=== PATIENT | female | born 1985 | race African-American/Black ===

== ENCOUNTER → 2018-01-29 | Outpatient (CLI) | payer MEDICAID ==
--- NOTE | 2018-01-29 13:40 | Diagnostic Imaging Report ---
INDICATION: care, second trimester ultrasound, anatomic survey. Clinical dates of 17 weeks and 3 days. TECHNIQUE: Multiple real-time grayscale images were obtained over the gravid uterus. COMPARISON: None. FINDINGS: There is a single live intrauterine gestation in variable presentation. Amniotic fluid appears normal, with the largest vertical pocket on these images measuring 5.4 cm. The cervical length is normal, measuring 4.5 cm. There is no funneling or endocervical fluid. The placenta is anterior. The heart rate is regular and measures 143 BPM. The upper and lower spine, intracranial ventricles, cerebellum, cisterna magna, cord insertion, kidneys, four-chamber heart, stomach are seen. The urinary bladder and three-vessel cord are not seen due to the lie. Biometrical measurements are as follows: Biparietal 3.89 cm, age 17 weeks 6 days. Head circumference 14.49 cm, age 17 weeks 5 days. Abdominal circumference 12.33 cm, age 18 weeks 0 days. Femur length 2.41 cm, age 17 weeks 2 days. Sonographic estimate age: 17 weeks 5 days. Sonographic estimated date of delivery: 07/04/2018. Estimated Weight: 204 gm (+/- 30 gm). LMP percentile: 59%. heart rate: 143 beats per minute. number: 1 of 1. IMPRESSION: 1. Single live intrauterine gestation measuring at 17 weeks 5 days, which is within range of the clinical dates. 2. Anatomic survey, as described above. The urinary bladder and three-vessel cord are not seen. Dictated by: Dictated on workstation # [id number]
== END ==
LOC: RAD 10:09
PROVIDERS: ATTEND Family Medicine
DX: Z34.82 Encounter for supervision of other normal pregnancy, second trimester (principal); Z3A.17 17 weeks gestation of pregnancy
CPT/HCPCS: 76805

== ENCOUNTER → 2018-04-09 | Outpatient (CLI) | payer MEDICAID ==
--- NOTE | 2018-04-09 13:41 | Diagnostic Imaging Report ---
INDICATION: survey. TECHNIQUE: Multiple real-time grayscale images were obtained over the gravid uterus. COMPARISON: 01/29/2018. FINDINGS: The previous exam of 01/29/2018 noted a single live intrauterine of approximately 17 weeks 5 days gestation +/-1 week. There were no abnormalities identified but the bladder and three-vessel cord were not well visualized. On this study, the fetus is cephalic in presentation. heart motion was noted and a rate of 167 BPM was recorded. There were no abnormalities identified. The bladder and three-vessel cord were visualized and were unremarkable. No other abnormalities noted. The growth parameters were not obtained for this exam. On the prior exam, the amniotic fluid index was within normal limits. However on this exam, the amniotic fluid index is now estimated to be 23.1 cm (normal 8 to 22 cm). The reason for the mild polyhydramnios is not certain. The placenta is anterior and there is no previa. The cervix was visualized and measures 3.6 cm in length (normal 3 cm or greater). IMPRESSION: 1. There is single live fetus of approximately 27 weeks 3 days gestation +/-1 week. The EDC remains July 06, 2018. 2. There were no abnormalities identified. In particular, the bladder and three-vessel cord appear to be within normal limits. 3. In the interval since the prior exam, mild polyhydramnios has developed. The reason for this is not certain. A short-term (2-4 week) followup exam would be recommended for further evaluation of the amniotic fluid volume. Biometrical measurements are as follows: Biparietal 6.88 cm, age 27 weeks 5 days. Head circumference 25.77 cm, age 28 weeks 1 days. Abdominal circumference 23.89 cm, age 28 weeks 2 days. Femur length 5.28 cm, age 28 weeks 1 days. Sonographic estimate age: 28 weeks 1 days. Sonographic estimated date of delivery: 07/01/2018. Estimated Weight: 1174 gm (+/- 171 gm). LMP percentile: 65%. heart rate: 167 beats per minute. number: 1 of 1. Dictated by: Dictated on workstation # [id number]
== END ==
LOC: RAD 11:52
PROVIDERS: ATTEND Family Medicine
DX: O40.2XX0 Polyhydramnios, second trimester, not applicable or unspecified (principal); Z3A.27 27 weeks gestation of pregnancy
CPT/HCPCS: 76816

== ENCOUNTER → 2018-05-21 | Outpatient (CLI) | payer MEDICAID ==
--- NOTE | 2018-05-21 14:23 | Diagnostic Imaging Report ---
INDICATION: Evaluate growth and fluid. TECHNIQUE: Multiple real-time grayscale images were obtained over the gravid uterus. COMPARISON: 04/09/2018. FINDINGS: There is a single live fetus in a cephalic presentation. heart rate was recorded at 144 beats per minute. Placenta is anterior. Amniotic fluid volume is normal with ANNA of 14 cm. Biometrical measurements are as follows: Biparietal 8.19 cm, age 33 weeks 0 days. Head circumference 30.68 cm, age 34 weeks 2 days. Abdominal circumference 29.92 cm, age 34 weeks 0 days. Femur length 6065 cm, age 34 weeks 2 days. Sonographic estimate age: 34 weeks 0 days. Sonographic estimated date of delivery: 07/02/2018. Estimated Weight: 2307 gm (+/- 337 gm). LMP percentile: 58%. heart rate: 144 beats per minute. number: 1 of 1. IMPRESSION: Single live IUP at approximately 34 weeks gestational age demonstrates normal interval growth when compared with prior exams. No complicating features are seen. Dictated by: Dictated on workstation # [id number]
== END ==
LOC: RAD 11:57
PROVIDERS: ATTEND Family Medicine
DX: Z34.93 Encounter for supervision of normal pregnancy, unspecified, third trimester (principal); Z3A.34 34 weeks gestation of pregnancy
CPT/HCPCS: 76816

== ENCOUNTER 2018-06-29 07:07 | Inpatient (IN) | payer MEDICAID ==
[2018-06-29] VITALS (49 sets, daily range): BP systolic 100–149; BP diastolic 60–90
[~2018-06-29] VITALS: Ht 154.9 cm; Wt 66.2 kg
[2018-06-29] MEDS ORDERED: OXYTOCIN/NORMAL SALINE 500 ML IV SCH ×2 (07:32→15:00)
[2018-06-29] MEDS ORDERED: OXYTOCIN/NORMAL SALINE 500 ML IV ONE (07:34)
[2018-06-29] MEDS ORDERED: MINERAL OIL CONCENTRATE 99.9% 15 ML UDC ONE (07:34)
[2018-06-29] MEDS ORDERED: D5 LR IV SOLUTION 1,000 ML IV ONE (07:34)
--- OUTSIDE RECORDS SUMMARY | 2018-06-29 07:37 | XMS REPORT | CCD ---
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 Allergies Allergy Code Allergy Type Reaction Status VANTIN 137185 Drug allergy Active Procedures Unknown or Not Available. 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 Active Medications Medication Code Dose Units Frequency Route Modification Start Date/Time Acetaminophen/Codeine 300MG-30MG Oral Tablet 505455 1 TABLET NEEDED EVERY 8 HR BY MOUTH FOR PAIN 2013 08:09 Docusate Sodium 100MG Oral Capsule 9315219 100 MILLIGRAMS NEEDED EVERY 12 H BY MOUTH for constipation 08:09 Ibuprofen 800MG Oral Tablet 392322 800 MILLIGRAMS NEEDED EVERY 8 HR BY MOUTH FOR PAIN 09/25/2013 08:08 PreQue 10 [id number]-[id number]-63-1MG-1M Oral Tablet 281577 0.5 EACH DAILY ORAL 09/25/2013 08:08 Medications Administered During Visit Unknown or Not Available. Encounters Encounter Diagnosis Diagnosis Code Start Date PERIAPICAL ABSCESS 5225 02/28/2015 Social History Smoking Status Code Start Date End Date Former smoker [id number] Patient Decision Aids Unknown or Not Available. Discharge Instructions You were admitted to [facility] on 02/28/2015 with a principal diagnosis of PERIAPICAL ABSCESS. You were discharged from [facility] on 02/28/2015. Should you have any questions prior to discharge, please contact a member of your healthcare team. If you have left the hospital and have any questions, please contact your primary care physician. Chief Complaint and Reason For Visit Chief Complaint Date of Onset TOOTHACHE Function Status Unknown or Not Available. Referral/Transition of Care Unknown or Not Available.
--- OUTSIDE RECORDS SUMMARY | 2018-06-29 07:37 | XMS REPORT | CCD ---
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 Name Role Phone RADHA PHYS, BEATRIZ ER Attphys RADHA PHYS, BEATRIZ ER Prisurg Allergies Allergy Code Allergy Type Reaction Status VANTIN {Deactivated Allergy} 007625 Drug allergy Active Active Medications Medication Code Dose Units Frequency Route Modification Start Date/Time Acetaminophen/Codeine 300MG-30MG Oral Tablet 670811 1 TABLET NEEDED EVERY 8 HR BY MOUTH FOR PAIN 2013 08:09 Prescription Detail 1 TABLET BY MOUTH NEEDED EVERY 8 HR FOR PAIN Docusate Sodium 100MG Oral Capsule 1478594 100 MILLIGRAMS NEEDED EVERY 12 H BY MOUTH for constipation 08:09 Prescription Detail 100 MILLIGRAMS BY MOUTH NEEDED EVERY 12 H for constipation Ibuprofen 800MG Oral Tablet 213086 800 MILLIGRAMS NEEDED EVERY 8 HR BY MOUTH FOR PAIN 09/25/2013 08:08 Prescription Detail 800 MILLIGRAMS BY MOUTH NEEDED EVERY 8 HR FOR PAIN PreQue 10 [id number]-00-1MG-1M Oral Tablet 667959 0.5 EACH DAILY ORAL 09/25/2013 08:08 Prescription Detail 0.5 EACH ORAL DAILY Problems Problem Code Start Date Resolved Date Status GRAVES DISEASE 634050508 Active Procedures Procedure Code Procedure Type Date CT HEAD W/O CONTRAST 102148652 SNOMED CT 10/16/[address] 10/16/2016 Results TEST - Collect Date/Time: 10/16/2016 14:57 Test Name Code Test Result Test Units Test Ref Range TEST 8-8 NEGATIVE N/A Function Status Unknown or Not Available. History of Immunizations Immunization Code Date Td (adult), adsorbed 09 05/20/2003 Td (adult), adsorbed 09 06/18/2005 Tdap 115 09/24/2013 Influenza, seasonal, injectable 141 09/24/2013 Plan of Treatment Unknown or Not Available. Social History Smoking Status Code Start Date End Date Former smoker [id number] Vital Signs Unknown or Not Available. Function Status Unknown or Not Available. Goals Unknown or Not Available. ASSESSMENTS Unknown or Not Available. Health Concerns Section Unknown or Not Available.
--- OUTSIDE RECORDS SUMMARY | 2018-06-29 07:37 | XMS REPORT | CCD ---
Author Author LUISANA MCKEON Organization Unknown Address [address] [place] [id number] Care Team Providers Care Second Baker Name Role Phone ALAN PARRA, MARZENA [place] Attphynoman MARZENA PHILLIPS MD Vital Signs Unknown or Not Available. Allergies Allergy Code Allergy Type Reaction Status [id number] Drug allergy Active Procedures Unknown or Not Available. History of Immunizations Immunization Code Date Tdap 115 09/24/2013 Influenza, seasonal, injectable 141 09/24/2013 Problems Problem Code Start Date Resolved Date Status GRAVES DISEASE 303045519 Active Results Unknown or Not Available. Medications Medication Code Dose Units Frequency Route Modification Start Date/Time Stop Date/Time PreQue 10 [id number]-25-1MG-1M Oral Tablet 375804 0.5 EACH DAILY ORAL 09/25/2013 08:08 Ibuprofen 800MG Oral Tablet 399871 800 MILLIGRAMS NEEDED EVERY 8 HR BY MOUTH FOR PAIN 09/25/2013 08:08 Docusate Sodium 100MG Oral Capsule 8886999 100 MILLIGRAMS NEEDED EVERY 12 H BY MOUTH for constipation 08:09 Acetaminophen/Codeine 300MG-30MG Oral Tablet 958272 1 TABLET NEEDED EVERY 8 HR BY MOUTH FOR PAIN 2013 08:09 Medications Administered Unknown or Not Available. Encounters Encounter Diagnosis Diagnosis Code Start Date PERIAPICAL ABSCESS 5225 05/22/2014 Social History Smoking Status Code Start Date End Date Former smoker 8418555 Patient Decision Aids Unknown or Not Available. Discharge Instructions You were admitted to [facility] on 05/22/2014 with a principal diagnosis of PERIAPICAL ABSCESS. You were discharged from [facility] on 05/22/2014. Should you have any questions prior to discharge, please contact a member of your healthcare team. If you have left the hospital and have any questions, please contact your primary care physician. Chief Complaint and Reason For Visit Chief Complaint Date of Onset TOOTH PAIN HEADACHE Function Status Unknown or Not Available. Referral/Transition of Care Unknown or Not Available.
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
--- OUTSIDE RECORDS SUMMARY | 2018-06-29 07:39 | XMS REPORT ---
Author Author Kyung Abreu Organization [facility] Address [address] [place], [place] [address] Care Team Providers Care Electric Spot Welder Name Role Phone Kyung Abreu PCP Unavailable Allergies and Adverse Reactions Name Reaction Notes Vantin Plan of Treatment Planned Activity Comments Planned Date Planned Time Plan/Goal ELECTROCARDIOGRAM COMPLETE 12/16/2012 12:00 AM URINALYSIS AUTO W/SCOPE 11/07/2014 12:00 AM ASSAY OF PHENYTOIN TOTAL 01/04/2015 12:00 AM EEG AWAKE AND DROWSY 02/24/2015 12:00 AM COMPREHEN METABOLIC PANEL 02/24/2015 12:00 AM ASSAY THYROID STIM HORMONE 02/24/2015 12:00 AM ASSAY OF TOTAL THYROXINE 02/24/2015 12:00 AM COMPLETE CBC W/AUTO DIFF WBC 02/24/2015 12:00 AM ASSAY OF PHENYTOIN TOTAL 02/24/2015 12:00 AM ASSAY OF PHENYTOIN FREE 02/24/2015 12:00 AM Medications Active Name Start Date Estimated Completion Date SIG Comments Sprintec (28) 0.25-35 mg-mcg oral tablet 10/04/2014 09/05/2015 take 1 tablet by oral route once daily for 28 days Dilantin Extended 100 mg oral capsule 02/24/2015 05/25/2015 take 1 capsule ( 100 mg) by oral route 3 times per day for 30 days methimazole 5 mg oral tablet 02/24/2015 05/25/2015 take 1 tablet (5 mg) by oral route every 8 hours for 30 days tramadol 50 mg oral tablet 04/03/2015 take 1 tablet (50 mg) by oral route every 6 hours as needed amoxicillin 500 mg oral tablet 04/03/2015 04/10/2015 take 1 tablet by oral route 2 times a day for 7 days Name Start Date Expiration Date SIG Comments ferrous sulfate 325 mg (65 mg iron) oral tablet 07/20/2009 12/17/2009 take 1 tablet by oral route 2 times a day for 30 days iron to be taken with Vit C. No milk products one hour before or after Vitamin C 500 mg oral tablet 07/20/2009 12/17/2009 take 1 tablet by oral route 2 times a day for 30 days To be taken with iron Vitamin C 500 mg oral tablet 07/20/2009 12/17/2009 take 1 tablet by oral route 2 times a day for 30 days To be taken with iron Keflex Oral take 1 TID Flexeril 10 mg oral tablet 10/04/2010 11/03/2010 take 1 tablet (10 mg) by oral route 3 times per day for 30 days TriAdvance 90-1-50 mg oral tablet 04/11/2011 04/05/2012 take 1 tablet by oral route once daily for 30 days metronidazole 500 mg oral tablet 09/12/2011 09/19/2011 take 1 tablet (500 mg) by oral route every 12 hours for 7 days promethazine 25 mg oral tablet 09/18/2011 12/17/2011 take 1/2 to 1 tablet by oral route q 6 hrs prn Nausea meloxicam 15 mg oral tablet 12/16/2012 take 1 tablet (15 mg) by oral route once daily clindamycin HCl 150 mg oral capsule 09/27/2013 10/07/2013 take 2 capsules ( 300 mg) by oral route 2 times per day for 10 days Paxil 20 mg oral tablet 02/01/2014 take 1 tablet (20 mg) by oral route once daily buspirone 10 mg oral tablet 05/11/2014 06/10/2014 take 1 tablet (10 mg) by oral route 2 times per day for 30 days Keflex 500 mg oral capsule 06/14/2014 06/21/2014 take 1 capsule (500 mg) by oral route every 12 hours for 7 days lorazepam 0.5 mg oral tablet 02/24/2015 03/26/2015 take 1 tablet (0.5 mg) by oral route 2 times per day PRN severe anxiety mirtazapine 7.5 mg oral tablet 02/24/2015 03/26/2015 take 2 tablets (15 mg) by oral route once daily at bedtime for 30 days oxycodone-acetaminophen 5-325 mg oral tablet 03/03/2015 03/06/2015 take 1 tablet by oral route every 6 hours as needed for 3 days Discontinued Name Start Date Discontinued Date SIG Comments medroxyprogesterone 150 mg/mL intramuscular syringe 11/10/2009 10/04/2010 inject 1 milliliter (150 mg) by intramuscular route every 3 months for 90 days Inderal LA Oral 09/23/2013 take 1 QID not needed in methimazole 5 mg oral tablet 05/29/2011 take 1 tablet (5 mg) by oral route once daily will need if Thyroid studies indicate Brooks MCMANUS 27-400-1.13-250 md-sga-ep-mg oral capsule 03/20/2011 04/11/2011 take 1 capsule by oral route once daily for 30 days ferrous sulfate 325 mg (65 mg iron) oral tablet 08/01/2011 12/16/2012 take 1 tablet by oral route daily methimazole 10 mg oral tablet 03/14/2013 take 1/2 tablet 3 times a day not needed in PreQue 10 15 mg iron -0.5 mg-25 mg oral tablet 03/04/2013 05/19/2013 take 1 tablet by oral route daily Zofran ODT 4 mg oral tablet,disintegrating 03/04/2013 09/27/2013 dissolve 1 tablet by oral route every 6 hours as needed Plus 29 mg iron- 1 mg oral tablet 05/19/2013 02/24/2015 take 1 tablet by oral route once daily with a meal cyclobenzaprine 10 mg oral tablet 09/27/2013 10/28/2013 take 1 tablet by mouth at HS Zoloft 50 mg oral tablet 10/28/2013 02/01/2014 take 1 tablet (50 mg) by oral route once daily meloxicam 7.5 mg oral tablet 02/01/2014 02/24/2015 take 1 tablet (7.5 mg) by oral route once daily cyclobenzaprine 10 mg oral tablet 05/11/2014 02/24/2015 take 1 tablet by oral route 2 times a day as needed Problem List Description Status Onset Thyroid disorder Active 2009 Hyperthyroidism in Active 05/19/2013 Depression and anxiety Active 05/15/2014 Vital Signs Date Time BP-Sys(mm[Hg] BP-Katie(mm[Hg]) HR(bpm) RR(rpm) Temp WT HT HC BMI BSA BMI Percentile O2 Sat(%) 04/03/2015 2:55:00 PM 124 mmHg 66 mmHg 71 bpm 18 rpm 97.4 F 99.125 lbs 60 in 19.36 kg/m2 1.38 m2 98 % 02/24/2015 3:26:00 PM 110 mmHg 72 mmHg 94 bpm 20 rpm 97.9 F 95.75 lbs 60 in 18.6997 kg/m 1.356 m 100 % 11/15/2014 1:58:00 PM 130 mmHg 70 mmHg 78 bpm 19 rpm 97.2 F 100.125 lbs 98 % 10/03/2014 2:04:00 PM 100 mmHg 70 mmHg 87 bpm 18 rpm 96.8 F 100 lbs 60 in 19.5297 kg/m 1.3857 m 96 % 05/11/2014 2:47:00 PM 112 mmHg 80 mmHg 102 bpm 18 rpm 97.1 F 108 lbs 60 in 21.09 kg/m2 1.44 m2 98 % 02/01/2014 1:47:00 PM 122 mmHg 62 mmHg 102 bpm 18 rpm 98.4 F 114.125 lbs 60 in 22.2883 kg/m 1.4804 m 99 % 10/28/2013 1:14:00 PM 140 mmHg 96 mmHg 73 bpm 97.4 F 112 lbs 60 in 21.87 kg/m2 1.47 m2 09/27/2013 2:16:00 PM 126 mmHg 64 mmHg 89 bpm 18 rpm 98.1 F 117.375 lbs 60 in 22.923 kg/m 1.5013 m 99 % 03/11/2013 2:26:00 PM 115 mmHg 75 mmHg 93 bpm 97.8 F 99 lbs 60 in 19.33 kg/m2 1.38 m2 12/16/2012 2:09:00 PM 122 mmHg 62 mmHg 72 bpm 18 rpm 98.8 F 94.5 lbs 60 in 18.4556 kg/m 1.3471 m 03/20/2011 8:57:00 AM 120 mmHg 70 mmHg 99 lbs 60 in 19.33 kg/ m2 1.38 m2 10/04/2010 2:02:00 PM 100 mmHg 60 mmHg 86 bpm 16 rpm 97.1 F 84 lbs 60 in 16.405 kg/m 1.27 m 100 % Social History Name Description Comments Alcohol Use - Occasional experimented with illicit drugs in past marijuana Living with significant other Tobacco Current every day smoker 1/3 PPD History of Procedures Date Ordered Description Order Status 04/03/2015 12:00 AM Rocephin 1 gram [facility][id number] Reviewed 04/03/2015 12:00 AM THER/PROPH/DIAG INJ SC/IM Reviewed 03/20/2011 12:00 AM URINE TEST Reviewed 03/20/2011 [...] AM URINE TEST Reviewed 11/09/2009 12:00 AM Depo-Provera 150 Mg Reviewed 11/09/2009 12:00 AM THER/PROPH/DIAG INJ SC/IM [...] AM CHLAMYDIA CULTURE Returned 03/11/2013 12:00 AM US, preg, real time w image documentation, transvag - In Office Reviewed 03/11/2013 12:00 AM SMEAR WET [place] SALINE/INK [...] 185 11/02/2013 6:26 PM TSH <0.06 mIU/L 01/01/2014 2:26 PM Prolactin 12.20 ng/mL 02/01/2014 2:22 PM GLUCOSE 110.0 mg/dLSODIUM 143.0 [...] Jul 20 2009 3:05PM Uterine Contractions Affecting Fetus/Morrison Jul 20 2009 3:05PM Anemia Jul 20 [...] 2014 2:06PM Dysuria Nov 07 2014 12:08PM Depression and anxiety Nov 15 2014 2:00PM Thyroid disorder Nov 15 2014 2:00PM Seizure Disorder Jan 04 2015 1:34PM Hyperthyroidism Feb 24 2015 3:29PM Seizures Feb 24 2015 3:29PM Anxiety Feb 24 2015 3:29PM Seizure Disorder Feb 24 2015 4:10PM Dental caries Apr 03 2015 2:57PM Tooth infection Apr 03 2015 2:57PM Payers Insurance Name Company Name Plan Name Plan Number Policy Number Policy Group Number Start Date Amerigroup - [place] - [place] State [place] Amerigroup - [place] State Plan [id number] N/A Amerigroup [place] State Plan Amerigroup [place] State Plan [id number] N/A [facility] [place] [id number] Friday, 2008 [facility] [facility] [facility] [place] [id number] Friday, 2010 [place] Medical [place] Program [place] Medical [place] Prog [id number] N/A [facility] Health Plan Of [facility] [id number] Sunday, 2009 [id number] Friday, 2008 History of Encounters Visit Date Visit Type Provider 04/03/2015 Office visit Kyung Abreu PETROLEUM SUPPLY SPECIALIST 02/24/[address] Cj Jerome MD 11/15/2014 Office visit Shilo Jeffries PETROLEUM SUPPLY SPECIALIST 10/03/2014 Office visit Shilo Jeffries PETROLEUM SUPPLY SPECIALIST 05/11/2014 Office visit Shilo Jeffries PETROLEUM SUPPLY SPECIALIST 02/01/2014 Office visit Kyung Abreu PETROLEUM SUPPLY SPECIALIST 10/28/2013 Office visit Gene Lama MD 09/27/2013 Office visit Kyung Abreu PETROLEUM SUPPLY SPECIALIST 09/23/2013 Hospital Gene Lama MD 09/15/2013 Office visit Gene Lama MD 09/07/2013 Office visit Aletha Spaulding PETROLEUM SUPPLY SPECIALIST 08/25/2013 Office visit Gene Lama MD 06/30/2013 Office visit Gene Lama MD 05/19/2013 Office visit Gene Lama MD 03/11/2013 Office visit Gene Lama MD 12/16/2012 Office visit Kyung Abreu PETROLEUM SUPPLY SPECIALIST 12/16/2012 Hospital Amarilis Harden MD 10/22/2011 Hospital Gene Lama MD 10/16/2011 Office visit Gene Lama MD 10/10/2011 Office visit Gene Lama MD 10/03/2011 Office visit Gene Lama MD 09/26/2011 Office visit Gene Lama MD 09/19/2011 Office visit Gene Lama MD 09/12/2011 Office visit Gene Lama MD 09/05/2011 Office visit Gene Lama MD 07/29/2011 Office visit Gene Lama MD 07/01/2011 Office visit Gene Lama MD 05/29/2011 Office visit Gene Lama MD 05/02/2011 Office visit Gene Lama MD 03/20/2011 Office visit Gene Lama MD 10/04/2010 Office visit Shakeel Cueto DO 11/09/2009 Office visit India Renee MD 10/27/2009 Office visit India Renee MD 09/13/2009 [facility] [place] Renee MD 09/11/2009 Office visit India Renee MD 09/04/2009 Office visit India Renee MD 08/14/2009 Office visit India Renee MD 07/27/2009 Office visit India Renee MD 07/20/2009 Office visit India Renee MD 07/20/2009 [facility] India Renee MD 07/20/2009 Office visit [place] Renee MD 06/29/2009 Office visit [place] Renee MD 06/01/2009 Office visit Robert Ac MD 05/04/2009 Office visit Robert Ac MD 04/06/2009 Office visit Myron Larsen MD 03/31/2009 Office visit Aaron Medina MD
--- OUTSIDE RECORDS SUMMARY | 2018-06-29 07:40 | XMS REPORT ---
Author Author [facility] Organization [facility] Address [address] [place], [place] [address] Care Team Providers Care Storeroom Supervisor Name Role Phone PCP Unavailable Allergies and Adverse Reactions Name Reaction Notes Vantin Plan of Treatment Planned Activity Comments Planned Date Planned Time Plan/Goal URINALYSIS AUTO W/SCOPE 11/07/2014 12:00 AM ASSAY OF PHENYTOIN TOTAL 01/04/2015 12:00 AM Medications Active Name Start Date [...] once daily for 28 days Dilantin Extended oral capsule 100 mg 01/04/2015 02/03/2015 take 1 capsule ( 100 mg) by oral route 3 times per day for 30 days Name Start Date Expiration Date SIG [...] studies indicate Neevo DHA Oral Capsule 27-400-1.13-200 lz-rhy-gy-mg 03/20/2011 04/11/2011 take 1 capsule by oral [...] HC BMI BSA BMI Percentile O2 Sat(%) 11/15/2014 1:58:00 PM 130 mmHg 70 mmHg [...] Condyloma Acuminatum no longer there Thyroid disorder 2009 hyperthyroidism, graves disease Anxiety Hypertension, Benign Essential [...] 2:00PM Seizure Disorder Jan 04 2015 1:34PM Payers Insurance Name Company Name Plan Name Plan Number Policy Number Policy Group Number Start Date Amerigroup - [place]HC - [place] State Plan Amerigroup - [facility] [place] State Plan [id number] N/A Amerigroup [place] State Plan Amerigroup [place] State Plan [id number] N/A [facility] [place] [id number] Friday, 2008 [id number] Friday, 2010 [place] Medical Assistance [facility] Medical Assistance Pro [id number] N/A [facility] [id number] Sunday, 2009 [id number] Friday, 2008 History of Encounters Visit Date Visit Type Provider 11/15/2014 Office visit Shilo Jeffries AUTOMOBILE MECHANIC ASSISTANT 10/03/2014 Office visit Shilo Jeffries AUTOMOBILE MECHANIC ASSISTANT 05/11/2014 Office visit Shilo Jeffries AUTOMOBILE MECHANIC ASSISTANT 02/01/2014 Office visit Kyung Abreu AUTOMOBILE MECHANIC ASSISTANT 10/28/2013 Office visit Gene Lama MD 09/27/2013 Office visit Kyung Abreu AUTOMOBILE MECHANIC ASSISTANT 09/23/2013 Hospital Gene Lama MD 09/15/2013 Office visit Gene Lama MD 09/07/2013 Office visit Aletha Spaulding AUTOMOBILE MECHANIC ASSISTANT 08/25/2013 Office visit Gene Lama MD 06/30/2013 Office visit Gene Lama MD 05/19/2013 Office visit Gene Lama MD 03/11/2013 Office visit Gene Lama MD 12/16/2012 Office visit Kyung Abreu AUTOMOBILE MECHANIC ASSISTANT 12/16/2012 Hospital Amarilis Harden MD 10/22/2011 Hospital [...] 07/20/2009 Office visit India Renee MD 07/20/2009 [facility] [place] Renee MD 07/20/2009 Office visit India Renee MD 06/29/2009 Office visit India Renee MD 06/01/2009 Office visit Robert Ac MD 05/04/2009 Office visit Robert Ac MD 04/06/2009 Office visit Myron Larsen MD 03/31/2009 Office visit Aaron Medina MD
--- OUTSIDE RECORDS SUMMARY | 2018-06-29 07:41 | XMS REPORT ---
Author Author [facility] Organization [facility] Address [address] [place], [place] [address] Care Team Providers Care Manager Global Communications Name Role Phone PCP Unavailable Allergies and Adverse Reactions Name Reaction Notes Vantin Plan of Treatment Planned Activity Comments Planned Date Planned Time Plan/Goal URINALYSIS AUTO W/SCOPE 11/07/2014 12:00 AM ASSAY OF PHENYTOIN TOTAL 01/04/2015 12:00 AM COMPREHEN METABOLIC PANEL 02/24/2015 12:00 AM ASSAY THYROID STIM HORMONE 02/24/2015 12:00 AM ASSAY OF TOTAL THYROXINE 02/24/2015 12:00 AM COMPLETE CBC W/AUTO DIFF WBC 02/24/2015 12:00 AM ASSAY OF PHENYTOIN TOTAL 02/24/2015 12:00 AM ASSAY OF PHENYTOIN FREE 02/24/2015 12:00 AM Medications Active Name Start Date Estimated Completion Date SIG Comments Sprintec (28) Oral tablet 0.25-35 mg-mcg 10/04/2014 09/05/2015 take 1 tablet by oral route once daily for 28 days lorazepam 0.5 mg oral tablet 02/24/2015 03/26/2015 take 1 tablet (0.5 mg) by oral route 2 times per day PRN severe anxiety mirtazapine 7.5 mg oral tablet 02/24/2015 03/26/2015 take 2 tablets (15 mg) by oral route once daily at bedtime for 30 days Dilantin Extended oral capsule 100 mg 02/24/2015 05/25/2015 take 1 capsule ( 100 mg) by oral route 3 times per day for 30 days methimazole oral tablet 5 mg 02/24/2015 05/25/2015 take 1 tablet (5 mg) by oral route every 8 hours for 30 days Name Start Date Expiration [...] studies indicate Neevo DHA Oral Capsule 27-400-1.13-200 pk-ktx-gt-mg 03/20/2011 04/11/2011 take 1 capsule by oral [...] route every 6 hours as needed Plus Oral tablet 29 mg iron- 1 mg 05/19/2013 02/24/2015 take 1 tablet by oral route once daily with a meal cyclobenzaprine oral tablet 10 mg 09/27/2013 10/28/2013 take 1 tablet by mouth at HS Zoloft Oral tablet 50 mg 10/28/2013 02/01/2014 take 1 tablet (50 mg) by oral route once daily meloxicam oral tablet 7.5 mg 02/01/2014 02/24/2015 take 1 tablet (7.5 mg) by oral route once daily cyclobenzaprine oral tablet 10 mg 05/11/2014 02/24/2015 take 1 tablet by oral route 2 times a day as needed Problem List Description Status Onset Thyroid disorder Active 2009 Hyperthyroidism in Active 05/19/2013 Depression and anxiety Active 05/15/2014 Vital Signs Date Time BP-Sys(mm[Hg] BP-Katie(mm[Hg]) HR(bpm) RR(rpm) Temp WT HT HC BMI BSA BMI Percentile O2 Sat(%) 02/24/2015 3:26:00 PM 110 mmHg 72 mmHg 94 bpm 20 rpm 97.9 F 95.75 lbs 60 in 18.70 kg/m2 1.36 m2 100 % 11/15/2014 1:58:00 PM 130 mmHg [...] THYROID STIM HORMONE Returned 12/16/2012 12:00 AM ELECTROCARDIOGRAM COMPLETE Ordered 12/16/2012 12:00 AM ASSAY OF TROPONIN QUANT [...] 12:[address] HEAD/BRAIN W/O DYE Returned 11/07/2014 12:00 AM URNLS DIP STICK/TABLET REAGENT AUTO MICROSCOPY Ordered 01/04/2015 12:00 AM ASSAY OF PHENYTOIN TOTAL Ordered 02/24/2015 12:00 AM COMPREHEN METABOLIC PANEL Ordered 02/24/2015 12:00 AM ASSAY THYROID STIM HORMONE Ordered 02/24/2015 12:00 AM ASSAY OF TOTAL THYROXINE Ordered 02/24/2015 12:00 AM COMPLETE CBC W/AUTO DIFF WBC Ordered 02/24/2015 12:00 AM ASSAY OF PHENYTOIN TOTAL Ordered 02/24/2015 12:00 AM ASSAY OF PHENYTOIN FREE Ordered 02/24/2015 12:00 AM EEG AWAKE AND DROWSY Ordered Results Summary Data and Description Results 10/27/2009 [...] 3:29PM Seizure Disorder Feb 24 2015 4:10PM Payers Insurance Name Company Name Plan Name Plan Number Policy Number Policy Group Number Start Date Amerigroup - [place] - [place] State Plan Amerigroup - [facility] State Plan [id number] N/A Amerigroup [place] State [place] Amerigroup [place] State Plan [id number] N/A [id number] Friday, 2008 [id number] Friday, 2010 [place] Medical [place] Medical [place] Prog [id number] N/A [facility] [id number] Sunday, 2009 [id number] Friday, 2008 History of Encounters Visit Date Visit Type Provider 02/24/[address] Cj Jerome MD 11/15/2014 Office visit Shilo Jeffries WASTE DISPOSAL PLANT OPERATOR 10/03/2014 Office visit Shilo Jeffries WASTE DISPOSAL PLANT OPERATOR 05/11/2014 Office visit Shilo Jeffries WASTE DISPOSAL PLANT OPERATOR 02/01/2014 Office visit Kyung Abreu WASTE DISPOSAL PLANT OPERATOR 10/28/2013 Office visit Gene Lama MD 09/27/2013 Office visit Kyung Abreu WASTE DISPOSAL PLANT OPERATOR 09/23/2013 Hospital Gene Lama MD 09/15/2013 Office visit Gene Lama MD 09/07/2013 Office visit Aletha Spaulding WASTE DISPOSAL PLANT OPERATOR 08/25/2013 Office visit Gene Lama MD 06/30/2013 Office visit Gene Lama MD 05/19/2013 Office visit Gene Lama MD 03/11/2013 Office visit Gene Lama MD 12/16/2012 Office visit Kyung Abreu WASTE DISPOSAL PLANT OPERATOR 12/16/2012 Hospital Amarilis Harden MD 10/22/2011 Hospital [...] 07/20/2009 Office visit India Renee MD 07/20/2009 [facility] [place] Renee MD 07/20/2009 Office visit India Renee MD 06/29/2009 Office visit India Renee MD 06/01/2009 Office visit Robert Ac MD 05/04/2009 Office visit Robert Ac MD 04/06/2009 Office visit Myron Larsen MD 03/31/2009 Office visit Aaron Medina MD
--- OUTSIDE RECORDS SUMMARY | 2018-06-29 07:42 | XMS REPORT ---
Author Author [facility] Organization [facility] Address [address] [place], [place] [address] Care Team Providers Care Applied Researcher Name Role Phone PCP Unavailable Allergies and [...] studies indicate Neevo DHA Oral Capsule 27-400-1.13-200 jv-cni-qf-mg 03/20/2011 04/11/2011 take 1 capsule by oral [...] Number Start Date Amer[employer] - [place] - [place] State Plan Amerigroup - [facility] State Plan [id number] N/A Amerigroup [place] State [place] Amerigroup [place] State Plan [id number] N/A [id number] Friday, 2008 [facility]cbs [facility] [id number] Friday, 2010 [place] Medical Assistance Program [place] Medical [place] Prog [id number] N/A [facility] [id number] Sunday, 2009 [id number] Friday, 2008 History of Encounters Visit Date Visit Type Provider 02/24/[address] Cj Jerome MD 11/15/2014 Office visit Shilo Jeffries IMMIGRATION OFFICER 10/03/2014 Office visit Shilo Jeffries IMMIGRATION OFFICER 05/11/2014 Office visit Shilo Jeffries IMMIGRATION OFFICER 02/01/2014 Office visit Kyung Abreu IMMIGRATION OFFICER 10/28/2013 Office visit Gene Lama MD 09/27/2013 Office visit Kyung Abreu IMMIGRATION OFFICER 09/23/2013 Hospital Gene Lama MD 09/15/2013 Office visit Gene Lama MD 09/07/2013 Office visit Aletha Spaulding IMMIGRATION OFFICER 08/25/2013 Office visit Gene Lama MD 06/30/2013 Office visit Gene Lama MD 05/19/2013 Office visit Gene Lama MD 03/11/2013 Office visit Gene Lama MD 12/16/2012 Office visit Kyung Abreu IMMIGRATION OFFICER 12/16/2012 Hospital Amarilis Harden MD 10/22/2011 Hospital [...] 07/20/2009 Office visit India Renee MD 07/20/2009 [facility] India Renee MD 07/20/2009 Office visit India Renee MD 06/29/2009 Office visit India Renee MD 06/01/2009 Office visit Robert Ac MD 05/04/2009 Office visit Robert Ac MD 04/06/2009 Office visit Myron Larsen MD 03/31/2009 Office visit Aaron Medina MD
--- OUTSIDE RECORDS SUMMARY | 2018-06-29 07:43 | XMS REPORT ---
Author Author [facility] Organization [facility] Address [address] [place], [place] [address] Care Team Providers Care Avionics Repair Technician Name Role Phone PCP Unavailable Allergies and [...] studies indicate Neevo DHA Oral Capsule 27-400-1.13-200 cb-ctn-vx-mg 03/20/2011 04/11/2011 take 1 capsule by oral [...] OF PHENYTOIN TOTAL Ordered 02/24/2015 12:00 AM EEG AWAKE AND DROWSY Ordered 02/24/2015 12:00 AM COMPREHEN METABOLIC PANEL Ordered 02/24/2015 12:00 AM ASSAY THYROID STIM HORMONE Ordered 02/24/2015 12:00 AM ASSAY OF TOTAL THYROXINE Ordered 02/24/2015 12:00 AM COMPLETE CBC W/AUTO DIFF WBC Ordered 02/24/2015 12:00 AM ASSAY OF PHENYTOIN TOTAL Ordered 02/24/2015 12:00 AM ASSAY OF PHENYTOIN FREE Ordered Results Summary Data and Description Results [...] Number Start Date Amer[employer] - [place] - [place] State Plan Amer[employer] - [facility] State Plan [id number] N/A [employer] [place] [employer] [place] State Plan [id number] N/A [id number] Friday, 2008 [facility]cbs [id number] Friday, 2010 [place] Medical [place] Pro[place] [id number] N/A [facility] [id number] Sunday, 2009 [id number] Friday, 2008 History of Encounters Visit Date Visit Type Provider 02/24/[address] Cj Jerome MD 11/15/2014 Office visit Shilo Jeffries WEATHER ANALYST 10/03/2014 Office visit Shilo Jeffries WEATHER ANALYST 05/11/2014 Office visit Shilo Jeffries WEATHER ANALYST 02/01/2014 Office visit Kyung Abreu WEATHER ANALYST 10/28/2013 Office visit Gene Lama MD 09/27/2013 Office visit Kyung Abreu WEATHER ANALYST 09/23/2013 Hospital Gene Lama MD 09/15/2013 Office visit Gene Lama MD 09/07/2013 Office visit Aletha Spaulding WEATHER ANALYST 08/25/2013 Office visit Gene Lama MD 06/30/2013 Office visit Gene Lama MD 05/19/2013 Office visit Gene Lama MD 03/11/2013 Office visit Gene Lama MD 12/16/2012 Office visit Kyung Abreu WEATHER ANALYST 12/16/2012 Hospital Amarilis Harden MD 10/22/2011 Hospital [...] 07/20/2009 Office visit India Renee MD 07/20/2009 [facility] India Renee MD 07/20/2009 Office visit India Renee MD 06/29/2009 Office visit [place] Renee MD 06/01/2009 Office visit Robert Ac MD 05/04/2009 Office visit Robert Ac MD 04/06/2009 Office visit Myron Larsen MD 03/31/2009 Office visit Aaron Medina MD
--- OUTSIDE RECORDS SUMMARY | 2018-06-29 07:44 | XMS REPORT ---
Author Author [facility] Organization [facility] Address [address] [place], [place] [id number] Care Team Providers Care Global Marketing Specialist Name Role Phone PCP Unavailable Allergies [...] studies indicate Neevo DHA Oral Capsule 27-400-1.13-200 ro-wxl-qh-mg 03/20/2011 04/11/2011 take 1 capsule by oral [...] Jul 20 2009 3:05PM Uterine Contractions Affecting Fetus/Browns Jul 20 2009 3:05PM Anemia Jul 20 [...] 2:00PM Thyroid disorder Nov 15 2014 2:00PM Payers Insurance Name Company Name Plan Name Plan Number Policy Number Policy Group Number Start Date [employer] - [place] [facility] State Plan [id number] N/A [employer] [place] [employer] [place] [id number] N/A [id number] Friday, 2008 [id number] Friday, 2010 [place] Medical [place] [id number] N/A [facility] [place] [employer] [place] [id number] Sunday, 2009 [id number] Friday, 2008 History of Encounters Visit Date Visit Type Provider 11/15/2014 Office visit Shilo Jeffries IT INFRASTRUCTURE CONSULTANT 10/03/2014 Office visit Shilo Jeffries IT INFRASTRUCTURE CONSULTANT 05/11/2014 Office visit Shiol Jeffries IT INFRASTRUCTURE CONSULTANT 02/01/2014 Office visit Kyung Abreu IT INFRASTRUCTURE CONSULTANT 10/28/2013 Office visit Gene Lama MD 09/27/2013 Office visit Kyung Abreu IT INFRASTRUCTURE CONSULTANT 09/23/2013 Hospital Gene Lama MD 09/15/2013 Office visit Gene Lama MD 09/07/2013 Office visit Aeltha AlarconJoni Spaulding IT INFRASTRUCTURE CONSULTANT 08/25/2013 Office visit Gene Lama MD 06/30/2013 Office visit Gene Lama MD 05/19/2013 Office visit Gene Lama MD 03/11/2013 Office visit Gene Lama MD 12/16/2012 Office visit Kyung Abreu IT INFRASTRUCTURE CONSULTANT 12/16/2012 [facility] Amarilis Harden MD 10/22/2011 [facility] Gene Lama MD 10/16/2011 Office visit Gene [...] 07/20/2009 Office visit India Renee MD 07/20/2009 [facility] India Renee MD 07/20/2009 Office visit India Renee MD 06/29/2009 Office visit India Renee MD 06/01/2009 Office visit Robert Ac MD 05/04/2009 Office visit Robert Ac MD 04/06/2009 Office visit Myron Larsen MD 03/31/2009 Office visit Aaron Medina MD
--- OUTSIDE RECORDS SUMMARY | 2018-06-29 07:46 | XMS REPORT ---
Author Author Kyung Abreu Organization [facility] Address [address] [place], [place] [address] Care Team Providers Care Disc Pad Plate Filler Name Role Phone Kyung Aberu PCP Unavailable Allergies and Adverse Reactions Name [...] route every 8 hours for 30 days amoxicillin 500 mg oral tablet 05/15/2015 05/22/2015 take 1 tablet by oral route 2 times a day for 7 days tramadol 50 mg oral tablet 05/15/2015 take 1 tablet (50 mg) by oral route every 6 hours as needed Name Start Date Expiration Date SIG Comments [...] if Thyroid studies indicate Brooks MCMANUS 27-400-1.13-250 vv-bwn-wm-mg oral capsule 03/20/2011 04/11/2011 take 1 capsule [...] Status 04/03/2015 12:00 AM Rocephin 1 gram [facility]#[id number] Reviewed 04/03/2015 12:00 AM THER/PROPH/DIAG INJ SC/IM [...] Jul 20 2009 3:05PM Uterine Contractions Affecting Fetus/Sibley Jul 20 2009 3:05PM Anemia Jul 20 2009 3:05PM Follow-up, Routine Oct 27 2009 2:48PM Contraceptive Counseling Oct 27 2009 2:48PM Condyloma Acuminatum no longer there Thyroid disorder 2010 hyperthyroidism, graves disease Anxiety Hypertension, Benign Essential 2010 started with hyperthyroidism, takes propanolol Depression resolved Tremor resolved after getting thyroid medicine Muscle Spasm of back Weight loss went from 116-86lbs [...] Plan [employer] - [place] State Plan [id number] N/A [employer] [place] State [place] [employer] [place] State Plan [id number] N/A [employer] [facility] [place] [id number] Friday, 2008 [employer] [facility] [place] [id number] Friday, 2010 [place] Medical [place] Medical [place] Pro[place] [id number] N/A [facility] Health Plan Of [facility] [place] [id number] Sunday, 2009 [id number] Friday, 2008 History of Encounters Visit Date Visit Type Provider 04/03/2015 Office visit Kyung Abreu CHEESE GRADER 02/24/[address] Cj Jerome MD 11/15/2014 Office visit Shilo Jeffries CHEESE GRADER 10/03/2014 Office visit Shilo Jeffries CHEESE GRADER 05/11/2014 Office visit Shilo Jeffries CHEESE GRADER 02/01/2014 Office visit Kyung Abreu CHEESE GRADER 10/28/2013 Office visit Gene Lama MD 09/27/2013 Office visit Kyung Abreu CHEESE GRADER 09/23/2013 Hospital Gene Lama MD 09/15/2013 Office visit Gene Lama MD 09/07/2013 Office visit Aletha Spaulding CHEESE GRADER 08/25/2013 Office visit Gene Lama MD 06/30/2013 Office visit Gene Lama MD 05/19/2013 Office visit Gene Lama MD 03/11/2013 Office visit Gene Lama MD 12/16/2012 Office visit Kyung Abreu CHEESE GRADER 12/16/2012 Hospital Amarilis Harden MD 10/22/2011 Hospital [...] 10/27/2009 Office visit India Renee MD 09/13/2009 [facility] India Renee MD 09/11/2009 Office visit India Renee MD 09/04/2009 Office visit India Renee MD 08/14/2009 Office visit India Renee MD 07/27/2009 Office visit India Renee MD 07/20/2009 Office visit India Renee MD 07/20/2009 [facility] India Renee MD 07/20/2009 Office visit India Renee MD 06/29/2009 Office visit India Renee MD 06/01/2009 Office visit Robert Ac MD 05/04/2009 Office visit Robert Ac MD 04/06/2009 Office visit Myron Larsen MD 03/31/2009 Office visit Aaron Medina MD
--- OUTSIDE RECORDS SUMMARY | 2018-06-29 07:49 | XMS REPORT ---
Author Author JANETTE SHAHIDA [facility] Address [address] [place] [address] Care Team Providers Care Curator Of Manuscripts Name Role Phone SHAHIDA SAVAGE Unavailable PROBLEMS Type Condition ICD9-CM Code UEU22-FM Code Onset Dates Condition Status SNOMED Code Problem Third trimester Z34.93 Active 84273994 Problem Seizure disorder G40.909 Active 816073587 Problem Hyperthyroidism E05.90 Active 63210607 ALLERGIES No Information ENCOUNTERS Encounter Location Date Diagnosis [place] [address] [address] Jun, [place] [address] [address] Jun, Third trimester Z34.93 and 38 weeks gestation of Z3A.38 [place] [address] [address] Jun, Third trimester Z34.93 [place] [address] [address] [place] [id number] [place] [address] Jun, Third trimester Z34.93 and Hyperthyroidism E05.90 [place] [address] [address] Jun, Third trimester Z34.93 [place] [address] [place] [id number] [place] [address] Jun, Hyperthyroidism E05.90 ; Third trimester Z34.93 and 35 weeks gestation of Z3A.35 [place] [address] [address] [place] [id number] [place] [address] May, screening for streptococcus B Z36.85 ; Third trimester Z34.93 and 36 weeks gestation of Z3A.36 [facility] [address] [place] [id number] May, Caries K02.9 and Dental examination Z01.20 [facility] [address] [place] [id number] [place] [address] May, Third trimester Z34.93 ; Hyperthyroidism E05.90 and 35 weeks gestation of Z3A.35 [facility] [address] [address] May, Dental examination Z01.20 [facility] [address] [address] May, Oral pain K13.79 [facility] [address] [address] 31 Apr, 2018 Third trimester Z34.93 ; Hyperthyroidism E05.90 and 32 weeks gestation of Z3A.32 [facility] [address] [place] [id number] [place] [address] Apr, [facility] [address] [address] Apr, Third trimester Z34.93 ; Encounter for immunization Z23 and Hyperthyroidism E05.90 [facility] [address] [place] [id number] [place] [address] Mar, [facility] [address] [place] [id number] [place] [address]- 92[address] Mar, [facility] [address] [place] [id number] [place] [address] 59[address] Mar, Second trimester Z34.92 ; 26 weeks gestation of Z3A.26 ; Hyperthyroidism E05.90 and Seizure disorder G40.909 [facility] [address] [place] [id number] [place] [address] 7[address] Feb, [facility] [address] [address] Feb, care, subsequent in second trimester Z34.82 ; 19 weeks gestation of Z3A.19 ; Hyperthyroidism E05.90 and Vomiting affecting O21.9 [place] [address] [address] [place] [address] [address] Jan, care, subsequent in second trimester Z34.82 ; Hyperthyroidism E05.90 and 17 weeks gestation of Z3A.17 [place] [address], [place] [address] Jan, [place] [address] [address] Dec, care, subsequent in second trimester Z34.82 and 14 weeks gestation of Z3A.14 [place] [address], [place] [address] Dec, Screening for deficiency anemia Z13.0 [address], [place] [address] Dec, [address], [place] [address] Dec, Encounter for test, result unknown Z32.00 [facility] [address] [place] [address] Jan, Hyperthyroidism E05.90 [facility] [id number] [place] [address] Jan Graves disease E05.00 IMMUNIZATIONS No Known Immunizations SOCIAL HISTORY Never Assessed REASON FOR VISIT PA for BPP PLAN OF CARE VITAL SIGNS MEDICATIONS Unknown Medications RESULTS No Results PROCEDURES No Known procedures INSTRUCTIONS MEDICATIONS ADMINISTERED No Known Medications MEDICAL (GENERAL) HISTORY Type Description Date Medical History graves disease Medical History seizures Surgical History tonsillectomy as a child Hospitalization History sugery Hospitalization History child
--- OUTSIDE RECORDS SUMMARY | 2018-06-29 07:49 | XMS REPORT ---
Author Author JANETTE SHAHIDA [facility] Address [address] [place] [address] Care Team Providers Care Fire Captain Marine Name Role Phone JANETTEROSSISHAHIDA Unavailable PROBLEMS Type Condition ICD9-CM Code FCB30-LZ Code Onset Dates Condition Status SNOMED Code Problem Third trimester Z34.93 Active 69286753 Problem Seizure disorder G40.909 Active 028286780 Problem Hyperthyroidism E05.90 Active 66120652 ALLERGIES Substance Reaction Event Type Date Status Vanbecca hives Drug Allergy Jun, Active ENCOUNTERS Encounter Location Date Diagnosis [address] [address] Jun, [place] [address] [address] Jun, Third trimester Z34.93 and 38 weeks gestation of Z3A.38 [place] [address] [place] [id number] [place] [address] Jun, Third trimester Z34.93 [place] [address] [place] [id number] [place] [address] Jun, Third trimester Z34.93 and Hyperthyroidism E05.90 [place] [address] [place] [id number] [place] [address] Jun, Third trimester Z34.93 [place] [address] [address] Jun, Hyperthyroidism E05.90 ; Third trimester Z34.93 and 35 weeks gestation of Z3A.35 [place] [address] [place] [id number] [place] [address] May, screening for streptococcus B Z36.85 ; Third trimester Z34.93 and 36 weeks gestation of Z3A.36 [facility] [address] [id number] May, 2018 Caries K02.9 and Dental examination Z01.20 [facility] [address] [place] [address] 21 May, 2018 Third trimester Z34.93 ; Hyperthyroidism E05.90 and 35 weeks gestation of Z3A.35 [facility] [address] [place] [id number] [place] [address]- [address] 19 May, 2018 Dental examination Z01.20 [facility] [address] [address] 19 May, 2018 Oral pain K13.79 [facility] [address] [place] [id number] [place] [address]- [address] 31 Apr, 2018 Third trimester Z34.93 ; Hyperthyroidism E05.90 and 32 weeks gestation of Z3A.32 [facility] [address] [place] [id number] [place] [address]- 6888 Apr, [facility] [address] [place] [id number] [place] [address] 55[address]- 5[address] Apr, Third trimester Z34.93 ; Encounter for immunization Z23 and Hyperthyroidism E05.90 [facility] [address] [place] [id number] [place] [address] 43097- 7[address] Mar, [facility] [address] [place] [id number] [place] [address]01- [address]397 Mar, [facility] [address] [place] [id number] [place] [address]- 2359 Mar, Second trimester Z34.92 ; 26 weeks gestation of Z3A.26 ; Hyperthyroidism E05.90 and Seizure disorder G40.909 [facility] [address] [place] [id number] [place] [address]53- 5691 Feb, [facility] [address] [address] 16 Feb, 2018 care, subsequent in second trimester Z34.82 ; 19 weeks gestation of Z3A.19 ; Hyperthyroidism E05.90 and Vomiting affecting O21.9 [place] [address] [place] [address]- [address] Jan, care, subsequent in second trimester Z34.82 ; Hyperthyroidism E05.90 and 17 weeks gestation of Z3A.17 [place] [address] [place] [id number] [place] [address]98- [address] Jan, [place] [id number] [place] [address]- 3556 Dec, care, subsequent in second trimester Z34.82 and 14 weeks gestation of Z3A.14 [place] [id number] [place] [address]- [address] Dec, Screening for deficiency anemia Z13.0 [place] [id number] [place] [address] 24433- 2457 Dec, [place] [id number] [place] [address]33- 4[address] Dec, Encounter for test, result unknown Z32.00 [facility] [address] [place] [address] Jan, Hyperthyroidism E05.90 [facility] [id number] [place] [address] Jan Graves disease E05.00 IMMUNIZATIONS No Known Immunizations SOCIAL HISTORY Never Assessed REASON FOR VISIT OB f/u, ob urine dip in third trimester , cervix check--tcuppettRN PLAN OF CARE VITAL SIGNS Height 61 in 2018-06-22 Weight 147.5 lbs 2018-06-22 Temperature 97.4 degrees Fahrenheit 2018-06-22 Heart Rate 96 bpm 2018-06-22 Respiratory Rate 20 2018-06-22 BMI 27.87 kg/m2 2018-06-22 Blood pressure systolic 118 mmHg 2018-06-22 Blood pressure diastolic 80 mmHg 2018-06-22 MEDICATIONS Medication Instructions Dosage Frequency Start Date End Date Duration Status Cyclobenzaprine HCl 10 mg Orally Three times a day 1 tablet as needed 8h Apr, Active Vol-Care Rx 1 MG Orally Once a day 1 tablet 24h Jan, 30 day(s) Active Tylenol 325 MG Orally every 4 hrs 1 tablet as needed 4h Not-Taking Ferrous Sulfate 325 (65 Fe) MG Orally Once a day 1 tablet 24h Mar, 30 day(s) Active RESULTS Name Result Date Reference Range UA OB DIP (IN HOUSE) 2018-06-22 Glucose Negative Protein Negative PROCEDURES Procedure Date Ordered Result Body Site URINE-NO MICRO Jun 22, 2018 INSTRUCTIONS MEDICATIONS ADMINISTERED No Known Medications MEDICAL (GENERAL) HISTORY Type Description Date Medical History graves disease Medical History seizures Surgical History tonsillectomy as a child Hospitalization History [facility] Hospitalization History child
--- OUTSIDE RECORDS SUMMARY | 2018-06-29 07:49 | XMS REPORT ---
Author Author SAMINASHAREEELI [facility] Address Unknown Care Team Providers Care Hard Rock Miner Name Role Phone ELI HARRISON Unavailable PROBLEMS Type Condition ICD9-CM Code OMP94-OB Code Onset Dates Condition Status SNOMED Code Problem Third trimester Z34.93 Active 42001696 Problem Seizure disorder G40.909 Active 289399248 Problem Hyperthyroidism E05.90 Active 71327706 ALLERGIES Substance Reaction Event Type Date Status Vanbecca hives Drug Allergy May, Active ENCOUNTERS Encounter Location Date Diagnosis [place] [address] [address] Jun, [facility] [address] [address] Jun, [facility] [address] [address] Jun, [place] [address] [address] Jun, Third trimester Z34.93 [facility] [address] [place] [id number] [place] [address] Jun, Hyperthyroidism E05.90 ; Third trimester Z34.93 and 35 weeks gestation of Z3A.35 [facility] [address] [place] [id number] [place] [address] May, screening for streptococcus B Z36.85 ; Third trimester Z34.93 and 36 weeks gestation of Z3A.36 [facility] [address] [place] [id number] [place] [id number] May, Caries K02.9 and Dental examination Z01.20 [facility] [address] [address] May, Third trimester Z34.93 ; Hyperthyroidism E05.90 and 35 weeks gestation of Z3A.35 [facility] [address] [address] May, Dental examination Z01.20 [facility] [address] [address] May, Oral pain K13.79 [facility] [address] [address] Apr, Third trimester Z34.93 ; Hyperthyroidism E05.90 and 32 weeks gestation of Z3A.32 [place] [address] [address] Apr, [place] [address] [address] Apr, Third trimester Z34.93 ; Encounter for immunization Z23 and Hyperthyroidism E05.90 [place] [address] [address] Mar, [place] [address] [address] Mar, [place] [address] [place] [id number] [place] [address] Mar, Second trimester Z34.92 ; 26 weeks gestation of Z3A.26 ; Hyperthyroidism E05.90 and Seizure disorder G40.909 [place] [address] [place] [id number] [place] [address]- 2017 Feb, [place] [address] [address] Feb, care, subsequent in second trimester Z34.82 ; 19 weeks gestation of Z3A.19 ; Hyperthyroidism E05.90 and Vomiting affecting O21.9 [place] [address] [address]- [address]80 Jan, care, subsequent in second trimester Z34.82 ; Hyperthyroidism E05.90 and 17 weeks gestation of Z3A.17 [place] [address], [place] [address] Jan, [place] [address], [place] [address] 29 Dec, 2017 care, subsequent in second trimester Z34.82 and 14 weeks gestation of Z3A.14 [place] [address], [place] [address] 27 Dec, 2017 Screening for deficiency anemia Z13.0 [place] [address] [place] [id number] [place] [address] 486[address]- 3238 Dec, [place] [address] [place] [address] 94842- 9411 Dec, Encounter for test, result unknown Z32.00 [facility] [address] [place] [address] Jan, Hyperthyroidism E05.90 [facility] [id number] [place] [address] Jan Graves disease E05.00 IMMUNIZATIONS No Known Immunizations SOCIAL HISTORY Never Assessed REASON FOR VISIT DIGNA/poss TE Patient has not been seen by us. Chief complaint #4 apparently badly fractured. Please take amarjit torres and JESSICA. Thanks. N, twest PLAN OF CARE Activity Details Follow Up prn Reason:cristy or TE VITAL SIGNS Height 61 in 2018-06-05 Blood pressure systolic 122 mmHg 2018-06-05 Blood pressure diastolic 78 mmHg 2018-06-05 MEDICATIONS Medication Instructions Dosage Frequency Start Date End Date Duration Status Amoxicillin 875 MG Orally every 12 hrs 1 tablet 12h May, 10 day (s) Active Vol-Care Rx 1 MG Orally Once a day 1 tablet 24h Jan, 30 day(s) Active Ferrous Sulfate 325 (65 Fe) MG Orally Once a day 1 tablet 24h Mar, 30 day(s) Active Cyclobenzaprine HCl 10 mg Orally Three times a day 1 tablet as needed 8h 24 Apr, 2018 Active Tylenol 325 MG Orally every 4 hrs 1 tablet as needed 4h Active RESULTS No Results PROCEDURES Procedure Date Ordered Result Body Site LTD ORAL EVALUATION - PROBLEM FOCUS Jun 05, 2018 INTRAORL-PERIAPICAL 1 FILM 90613 Jun 05, 2018 BITEWING - SINGLE FILM Jun 05, 2018 INSTRUCTIONS MEDICATIONS ADMINISTERED No Known Medications MEDICAL (GENERAL) HISTORY Type Description Date Medical History graves disease Medical History seizures Surgical History tonsillectomy as a child Hospitalization History sugery Hospitalization History child
--- OUTSIDE RECORDS SUMMARY | 2018-06-29 07:49 | XMS REPORT ---
Author Author JANETTE SHAHIDA [facility] Address [address] [place] [address] Care Team Providers Care Accounting Assistant Name Role Phone SHAHIDA SAVAGE Unavailable PROBLEMS Type Condition ICD9-CM Code MXL25-YR Code Onset Dates Condition Status SNOMED Code Problem Third trimester Z34.93 Active 52887281 Problem Seizure disorder G40.909 Active 207675226 Problem Hyperthyroidism E05.90 Active [id number] ALLERGIES No Information ENCOUNTERS Encounter Location Date Diagnosis [place] [address] [address] Jun, [place] [address] [address] Jun, Third trimester Z34.93 and 38 weeks gestation of Z3A.38 [place] [address] [address] Jun, Third trimester Z34.93 [place] [address] [address] [place] [id number] [place] [address] Jun, Third trimester Z34.93 and Hyperthyroidism E05.90 [place] [address] [address] Jun, Third trimester Z34.93 [place] [address] [place] [id number] [place] [address] Jun, Hyperthyroidism E05.90 ; Third trimester Z34.93 and 35 weeks gestation of Z3A.35 [place] [address] [place] [id number] [place] [address] May, screening for streptococcus B Z36.85 ; Third trimester Z34.93 and 36 weeks gestation of Z3A.36 [facility] [id number] [place] [phone] May, Caries K02.9 and Dental examination Z01.20 [facility] [address] [place] [id number] [place] [address] May, Third trimester Z34.93 ; Hyperthyroidism E05.90 and 35 weeks gestation of Z3A.35 [facility] [address] [address] May, Dental examination Z01.20 [facility] [address] [address] May, Oral pain K13.79 [facility] [address] [address] 31 Apr, 2018 Third trimester Z34.93 ; Hyperthyroidism E05.90 and 32 weeks gestation of Z3A.32 [facility] [address] [place] [id number] [place] [address] Apr, [facility] [address] [address] Apr, Third trimester Z34.93 ; Encounter for immunization Z23 and Hyperthyroidism E05.90 [facility] [address] [place] [id number] [place] [address] Mar, [facility] [address] [place] [id number] [place] [address] Mar, [facility] [address] [place] [id number] [place] [address] Mar, Second trimester Z34.92 ; 26 weeks gestation of Z3A.26 ; Hyperthyroidism E05.90 and Seizure disorder G40.909 [facility] [address] [place] [id number] [place] [address] Feb, [facility] [address] [address] Feb, care, subsequent in second trimester Z34.82 ; 19 weeks gestation of Z3A.19 ; Hyperthyroidism E05.90 and Vomiting affecting O21.9 [place] [address] [address] [place] [id number] [address] Jan, care, subsequent in second trimester Z34.82 ; Hyperthyroidism E05.90 and 17 weeks gestation of Z3A.17 [place] [address] [address] Jan, [place] [id number] [address] Dec, care, subsequent in second trimester Z34.82 and 14 weeks gestation of Z3A.14 [place] [id number] [address] Dec, Screening for deficiency anemia Z13.0 [id number] [address] Dec, [place] [id number] [address] Dec, Encounter for test, result unknown Z32.00 [facility] [address] [place] [address] Jan, Hyperthyroidism E05.90 [facility] [id number] [place] [address] Jan Graves disease E05.00 IMMUNIZATIONS No Known Immunizations SOCIAL HISTORY Never Assessed REASON FOR VISIT Ultrasound order PLAN OF CARE VITAL SIGNS MEDICATIONS Unknown Medications RESULTS No Results PROCEDURES No Known procedures INSTRUCTIONS MEDICATIONS ADMINISTERED No Known Medications MEDICAL (GENERAL) HISTORY Type Description Date Medical History graves disease Medical History seizures Surgical History tonsillectomy as a child Hospitalization History sugery Hospitalization History child
--- OUTSIDE RECORDS SUMMARY | 2018-06-29 07:49 | XMS REPORT ---
Author Author Kyung Abreu Organization [facility] Address [address] [place], [place] [id number] Care Team Providers Care Distribution Clerk Name Role Phone Kyung Abreu PCP Unavailable Cj Jerome PreferredProvider Allergies and Adverse Reactions Name Reaction Notes Vantin Plan of Treatment Planned Activity Comments Planned Date Planned Time Plan/Goal EKG (12-lead electrocardiogram) 12/16/2012 12:00 AM Temporal montage electroencephalogram 02/24/2015 12:00 AM CMP (comprehensive metabolic panel) 02/24/2015 12:00 AM Thyroid stimulating hormone (TSH) 02/24/2015 12:00 AM Thyroxine; total (total T4) 02/24/2015 12:00 AM CBC (automated hemogram and platelets, with automated complete differential) 02/24/2015 12:00 AM Dilantin serum 02/24/2015 12:00 AM Dilantin serum 02/24/2015 12:00 AM Medications Active Name Start Date Estimated Completion Date SIG Comments Sprintec (28) 0.25-35 mg-mcg Oral tablet 07/31/2016 07/02/2017 take 1 tablet by oral route once daily for 28 days Tylenol Extra Strength 500 mg oral tablet 10/19/2016 take 1-2 tablets by oral route every 8 hours diclofenac sodium 75 mg oral tablet,delayed release (DR/EC) 10/31/2016 take 1 tablet (75 mg) by oral route 2 times per day Name Start Date Expiration Date SIG Comments [...] 6 hours as needed for 3 days amoxicillin 500 mg oral tablet 05/15/2015 05/22/2015 take 1 tablet by oral route 2 times a day for 7 days tramadol 50 mg oral tablet 05/15/2015 take 1 tablet (50 mg) by oral route every 6 hours as needed methimazole 5 mg oral tablet 12/26/2015 03/25/2016 take 1 tablet (5 mg) by oral route every 8 hours for 30 days Dilantin Extended 100 mg oral capsule 05/08/2016 08/06/2016 take 1 capsule ( 100 mg) by oral route 3 times per day for 30 days methimazole 5 mg oral tablet 05/30/2016 08/28/2016 take 1 tablet by oral route every 8 hours for 90 days Discontinued Name Start Date Discontinued Date [...] need if Thyroid studies indicate Neevo DHA 27-400-1.13-250 rp-vkj-nt-mg oral capsule 03/20/2011 04/11/2011 take 1 capsule [...] HC BMI BSA BMI Percentile O2 Sat(%) 10/31/2016 11:15:00 AM 130 mmHg 70 mmHg 111 bpm 18 rpm 98.9 F 114.125 lbs 60 in 22.29 kg/m2 1.48 m2 100 % 04/03/2015 2:55:00 PM 124 mmHg 66 mmHg 71 bpm 18 rpm 97.4 F 99.125 lbs 60 in 19.3588 kg/m 1.3796 m 98 % 02/24/2015 3:26:00 PM 110 mmHg 72 mmHg 94 bpm 20 rpm 97.9 F 95.75 lbs 60 in 18.70 kg/m2 1.36 m2 100 % 11/15/2014 1:58:00 PM 130 mmHg 70 mmHg 78 bpm 19 rpm 97.2 F 100.125 lbs 98 % 10/03/2014 2:04:00 PM 100 mmHg 70 mmHg 87 bpm 18 rpm 96.8 F 100 lbs 60 in 19.5297 kg/m 1.39 m2 96 % 05/11/2014 2:47:00 PM 112 mmHg 80 mmHg 102 bpm 18 rpm 97.1 F 108 lbs 60 in 21.09 kg/m2 1.4401 m 98 % 02/01/2014 1:47:00 PM 122 mmHg 62 mmHg 102 bpm 18 rpm 98.4 F 114.125 lbs 60 in 22.2883 kg/m 1.48 m2 99 % 10/28/2013 1:14:00 PM 140 mmHg 96 mmHg 73 bpm 97.4 F 112 lbs 60 in 21.87 kg/m2 1.4665 m 09/27/2013 2:16:00 PM 126 mmHg 64 mmHg 89 bpm 18 rpm 98.1 F 117.375 lbs 60 in 22.923 kg/m 1.50 m2 99 % 03/11/2013 2:26:00 PM 115 mmHg 75 mmHg 93 bpm 97.8 F 99 lbs 60 in 19.33 kg/m2 1.3788 m 12/16/2012 2:09:00 PM 122 mmHg [...] Status 04/03/2015 12:00 AM Rocephin 1 gram [facility]#1709-8305-25 Reviewed 04/03/2015 12:00 AM THER/PROPH/DIAG INJ SC/IM [...] (FT-3) Reviewed 07/29/2011 12:00 AM GLUCOSE TEST Reviewed 07/29/2011 12:00 AM COMPLETE CBC W/AUTO DIFF WBC Reviewed 07/29/2011 12:00 AM Type and screen Reviewed 07/29/2011 12:00 AM ASSAY THYROID STIM HORMONE Reviewed 07/29/2011 12:00 AM ASSAY OF FREE THYROXINE Reviewed 07/29/2011 12:00 AM FREE ASSAY (FT-3) Reviewed 08/01/2011 12:00 AM GLUCOSE TOLERANCE TEST (GTT) Reviewed 09/05/2011 12:00 AM ASSAY OF FREE THYROXINE Reviewed 09/05/2011 12:00 AM ASSAY THYROID STIM HORMONE Reviewed 09/05/2011 12:00 AM ASSAY OF THYROID (T3 OR T4) Reviewed 09/12/2011 12:00 AM HERPES SIMPLEX TYPE 1 TEST Reviewed 09/12/2011 12:00 AM SYPHILIS TEST NON-TREP QUAL Reviewed 09/26/2011 12:00 AM CULTURE OTHR SPECIMN AEROBIC Reviewed 09/26/2011 12:00 AM ASSAY THYROID STIM HORMONE Reviewed 09/26/2011 12:00 AM ASSAY OF FREE THYROXINE Reviewed 09/26/2011 12:00 AM FREE ASSAY (FT-3) Reviewed 10/27/2009 12:00 AM CYTOPATH C/V THIN LAYER Reviewed 10/27/2009 12:00 AM SPECIMEN HANDLING OFFICE-LAB Reviewed 10/27/2009 12:00 AM CHLAMYDIA CULTURE Reviewed 10/27/2009 12:00 AM N.GONORRHOEAE DNA AMP PROB Reviewed 10/27/2009 12:00 AM CULTURE OTHR SPECIMN AEROBIC Reviewed 12/16/2012 12:00 AM ASSAY THYROID STIM HORMONE Reviewed 12/16/2012 12:00 AM ASSAY OF TROPONIN QUANT Reviewed 11/10/2009 12:00 AM URINE TEST Reviewed 11/09/2009 12:00 AM Depo-Provera 150 Mg Reviewed 11/09/2009 12:00 AM THER/PROPH/DIAG INJ SC/IM Reviewed 03/04/2013 12:00 AM URINALYSIS AUTO W/SCOPE Reviewed 03/04/2013 12:00 AM OBSTETRIC PANEL Reviewed 03/04/2013 12:00 AM HIV-1ANTIBODY Reviewed 03/04/2013 12:00 AM FREE ASSAY (FT-3) Reviewed 03/04/2013 12:00 AM ASSAY THYROID STIM HORMONE Reviewed 03/04/2013 12:00 AM ASSAY OF FREE THYROXINE Reviewed 03/11/2013 12:00 AM URINE TEST Reviewed 03/11/2013 12:00 AM N.GONORRHOEAE DNA AMP PROB Reviewed 03/11/2013 12:00 AM CHLAMYDIA CULTURE Reviewed 03/11/2013 12:00 AM US, preg, real time w image documentation, transvag - In Office Reviewed 03/11/2013 12:00 AM SMEAR WET MOUNT SALINE/INK Reviewed 03/11/2013 12:00 AM CYTOPATH C/V THIN LAYER Reviewed 03/11/2013 12:00 AM SPECIMEN HANDLING OFFICE-LAB Reviewed 03/11/2013 12:00 AM Urine drug screen Reviewed 03/11/2013 12:00 AM ASSAY THYROID STIM HORMONE Reviewed 03/11/2013 12:00 AM ASSAY OF FREE THYROXINE Reviewed 03/11/2013 12:00 AM FREE ASSAY (FT-3) Reviewed 03/25/2013 12:00 AM ASSAY OF FREE THYROXINE Reviewed 03/25/2013 12:00 AM FREE ASSAY (FT-3) Reviewed 03/25/2013 12:00 AM Urine drug screen Reviewed 03/25/2013 12:00 AM ASSAY THYROID STIM HORMONE Reviewed 05/19/2013 12:00 AM Urine drug screen Reviewed 05/19/2013 12:00 AM ASSAY OF FREE THYROXINE Reviewed 05/19/2013 12:00 AM ASSAY THYROID STIM HORMONE Reviewed 05/19/2013 12:00 AM FREE ASSAY (FT-3) Reviewed 05/26/2013 12:00 AM OB US >/=14 WKS SNGL FETUS Reviewed 06/30/2013 12:00 AM GLUCOSE TEST Reviewed 06/30/2013 12:00 AM COMPLETE CBC W/AUTO DIFF WBC Reviewed 06/30/2013 12:00 AM Type and screen Reviewed 06/30/2013 12:00 AM ASSAY OF FREE THYROXINE Reviewed 06/30/2013 12:00 AM FREE ASSAY (FT-3) Reviewed 06/30/2013 12:00 AM Urine drug screen Reviewed 08/25/2013 2:49 PM CULTURE OTHR SPECIMN AEROBIC Reviewed 09/01/2013 12:00 AM OB US >/=14 WKS SNGL FETUS Reviewed 08/25/2013 12:00 AM ASSAY OF FREE THYROXINE Reviewed 08/25/2013 12:00 AM ASSAY THYROID STIM HORMONE Reviewed 08/25/2013 12:00 AM FREE ASSAY (FT-3) Reviewed 06/29/2009 12:00 AM GLUCOSE TEST Reviewed 06/29/2009 12:00 AM COMPLETE CBC W/AUTO DIFF WBC Reviewed 09/07/2013 12:00 AM NON-STRESS TEST Reviewed 10/28/2013 12:00 AM CYTOPATH TBS C/V MANUAL Reviewed 10/28/2013 12:00 AM SPECIMEN HANDLING OFFICE-LAB Reviewed 10/28/2013 12:00 AM N.GONORRHOEAE DNA AMP PROB Reviewed 10/28/2013 12:00 AM CHYLMD TRACH DNA AMP PROBE Reviewed 07/20/2009 12:00 AM GLUCOSE TOLERANCE TEST (GTT) Reviewed 07/20/2009 12:00 AM CHLAMYDIA CULTURE Reviewed 07/20/2009 12:00 AM N.GONORRHOEAE DNA AMP PROB Reviewed 07/20/2009 12:00 AM CULTURE OTHR SPECIMN AEROBIC Reviewed 02/01/2014 12:00 AM METABOLIC PANEL TOTAL CA Reviewed 10/03/2014 12:00 AM ASSAY THYROID STIM HORMONE Reviewed 10/03/2014 12:00 AM ASSAY OF FREE THYROXINE Reviewed 10/03/2014 12:[address] HEAD/BRAIN W/O DYE Reviewed 11/07/2014 12:00 AM URNLS DIP STICK/TABLET REAGENT AUTO MICROSCOPY Reviewed 01/04/2015 12:00 AM ASSAY OF PHENYTOIN TOTAL Reviewed Results Summary Data and Description Results 10/27/2009 12:00 AM Pap Smear Negative 10/27/2009 4:37 PM NORMAL 09/21/2010 12:00 AM Mammogram -Women over 40 Declined Colonoscopy-Women and Men over 50 Declined Glucose SerPl-mCnc 86.0 mg/dLDexa Bone Scan Refused Aspirin reccommended Refused 10/04/2010 2:01 PM Depression Has Depression 10/04/2010 2:19 PM HIV1+2 Ab Ser Ql no risk 03/20/2011 10:38 AM RUBELLA 26.0 IU/mL 05/02/2011 5:30 PM WBC 13.8 RBC 4.15 HGB 12.30 g/dLHCT 35.40 %MCV 85.0 fLMCH 29.60 pgMCHC 34.70 g/dLRDW SD 41 RDW CV 13.20 %MPV 10.10 fLPLT 237 NRBC# 0.00 NRBC% 0.0 %NEUT 74.10 %%LYMP 18.80 %%MONO 5.70 %%EOS 1.20 %%BASO 0.20 %#NEUT 10.22 #LYMP 2.59 #MONO 0.78 #EOS 0.16 #BASO 0.03 MANUAL DIFF NOT IND GLUCOSE 89.0 mg/dLSODIUM 137.0 mmol/LPOTASSIUM 3.60 mmol/LCHLORIDE 110.0 mmol/LCO2 19.0 mmol/LBUN 8.0 mg/dLCREATININE 0.50 mg/dLSGOT/AST 13.0 IU/LSGPT/ALT 10.0 IU/LALK PHOS 58.0 IU/LTOTAL PROTEIN 6.60 g/dLALBUMIN 3.70 g/dLTOTAL BILI 0.70 mg/ dLCALCIUM 8.70 mg/dLAGE 25 GFR NonAA 153 GFR AA 185 eGFR >60 mL/min/1.73 m2eGFR AA* >60 TSH 0.010 uIU/mLFREE T4 1.14 LDH 141.0 IU/LURIC ACID 2.3 mg/dL 05/29/2011 11:52 AM FREE T4 0.97 TSH 0.230 uIU/mL 07/01/2011 5:05 PM TSH 0.460 uIU/mLFREE T4 1.07 07/31/2011 2:05 PM WBC 11.5 RBC 3.93 HGB 11.60 g/dLHCT 33.60 %MCV 86.[address] [facility] g/dLRDW SD 44 RDW CV 14.10 %MPV 10.80 fLPLT 214 NRBC# 0.00 NRBC% 0.0 %NEUT 72.90 %%LYMP 19.90 %%MONO 5.70 %%EOS 1.10 %%BASO 0.40 %#NEUT 8.36 #LYMP 2.29 #MONO 0.66 #EOS 0.13 #BASO 0.05 MANUAL DIFF NOT IND FREE T4 1.03 TSH 0.650 uIU/mL 09/05/2011 3:20 PM FREE T4 0.98 TSH 0.720 uIU/mLT3 TOTAL 122.0 ng/dL 09/17/2011 8:00 PM WBC 14.9 RBC 4.41 HGB 13.10 g/dLHCT 38.40 %MCV 87.0 fLMCH 29.70 pgMCHC 34.10 g/dLRDW SD 43 RDW CV 13.70 %MPV 10.30 fLPLT 172 NRBC# 0.00 NRBC% 0.0 %NEUT 86.30 %%LYMP 8.50 %%MONO 4.50 %%EOS 0.40 %%BASO 0.30 %#NEUT 12.86 #LYMP 1.26 #MONO 0.67 #EOS 0.06 #BASO 0.05 MANUAL DIFF SEE BELOW SEGS 75 BANDS 10 LYMPHS 11 MONOS 3 EOS 1.0 %GLUCOSE 105.0 mg/dLSODIUM 138.0 mmol/ LPOTASSIUM 3.50 mmol/LCHLORIDE 108.0 mmol/LCO2 19.0 mmol/LBUN 7.0 mg/ dLCREATININE 0.60 mg/dLSGOT/AST 18.0 IU/LSGPT/ALT 10.0 IU/LALK PHOS 112.0 IU/ LTOTAL PROTEIN 6.60 g/dLALBUMIN 3.70 g/dLTOTAL BILI 0.90 mg/dLCALCIUM 8.70 mg/ dLAGE 25 GFR NonAA 124 GFR AA 150 eGFR >60 mL/min/1.73 m2eGFR AA* >60 09/17/2011 8:30 PM COLOR YELLOW APPEARANCE HAZY SPEC GRAV 1.025 pH 6.5 PROTEIN TRACE GLUCOSE NEGATIVE KETONE 15 BILIRUBIN NEGATIVE BLOOD NEGATIVE NITRITE NEGATIVE LEUK SCREEN TRACE WBC/HPF 0-5 RBC/HPF 0-5 CASTS/LPF NEGATIVE CRYSTALS NEGATIVE MUCOUS THRDS 1+ BACTERIA FEW EPITH CELLS 2++ SQUAMOUS TRICHOMONAS NEGATIVE YEAST NEGATIVE CULT SET UP? NO 09/26/2011 2:17 PM T3 TOTAL 139.0 ng/dLFREE T4 1.02 TSH 0.630 uIU/mL 12/16/2012 2:50 PM TROPONIN-I AD < 0.04 ng/mLFREE T4 1.72 TSH < 0.06 mIU/L 03/04/2013 2:45 PM WBC 10.5 RBC 4.77 HGB 13.80 g/dLHCT 39.10 %MCV 82.0 fLMCH 28.90 pgMCHC 35.30 g/dLRDW SD 41 RDW CV 13.50 %MPV 9.50 fLPLT 236 NRBC# 0.00 NRBC% 0.0 %NEUT 78.10 %%LYMP 17.10 %%MONO 3.90 %%EOS 0.60 %%BASO 0.30 %#NEUT 8.20 #LYMP 1.80 #MONO 0.41 #EOS 0.06 #BASO 0.03 MANUAL DIFF NOT IND ABO/Rh Type O Positive Antibody Screen-Gel Negative HIV AG/AB COMBO 0.13 COLOR YELLOW APPEARANCE CLEAR SPEC GRAV >=1.030 pH 6.0 PROTEIN NEGATIVE GLUCOSE NEGATIVE KETONE 15 BILIRUBIN SMALL BLOOD NEGATIVE NITRITE NEGATIVE LEUK SCREEN NEGATIVE WBC/HPF RARE RBC/HPF NEGATIVE CASTS/LPF NEGATIVE CRYSTALS NEGATIVE MUCOUS THRDS NEGATIVE BACTERIA NEGATIVE EPITH CELLS 1+ SQUAMOUS TRICHOMONAS NEGATIVE YEAST NEGATIVE CULT SET UP? NO FREE T4 1.70 TSH <0.06 mIU/L 03/25/2013 2:46 PM FREE T4 1.27 TSH 0.0 uIU/mL 05/19/2013 12:15 PM FREE T4 1.22 TSH 0.0 uIU/mL 06/30/2013 4:00 PM FREE T4 1.12 WBC 9.9 RBC 4.22 HGB 11.60 g/dLHCT 34.30 %MCV 81.0 fLMCH 27.50 pgMCHC 33.80 g/dLRDW SD 39 RDW CV 13.20 %MPV 9.70 fLPLT 237 NRBC# 0.00 NRBC% 0.0 %NEUT 72.30 %%LYMP 20.30 %%MONO 5.70 %%EOS 1.40 %%BASO 0.30 %#NEUT 7.14 #LYMP 2.00 #MONO 0.56 #EOS 0.14 #BASO 0.03 MANUAL DIFF NOT IND ABO/Rh Type O Positive Antibody Screen-Gel Negative 08/25/2013 4:06 PM FREE T4 1.21 TSH 0.0 uIU/mLTriiodothyronine,Free,Ser um 3.30 pg/mL 09/23/2013 5:50 AM Triiodothyronine,Free,Serum 4.20 pg/mLTSH <0.06 mIU/LWBC 9.0 RBC 4.05 HGB 10.40 g/dLHCT 31.70 %MCV 78.0 fLMCH 25.70 pgMCHC 32.80 g/dLRDW SD 43 RDW CV 15.20 %MPV 10.20 fLPLT 178 NRBC# 0.00 NRBC% 0.0 %NEUT 62.70 %%LYMP 28.30 %%MONO 8.0 %%EOS 0.70 %%BASO 0.30 %#NEUT 5.65 #LYMP 2.55 #MONO 0.72 #EOS 0.06 #BASO 0.03 MANUAL DIFF NOT IND FREE T4 1.27 ABO/Rh Type O Positive Antibody Screen-Gel Negative 09/23/2013 2:44 PM Cannabinoids (THC) NEGATIVE Phencyclidine (PCP) NEGATIVE Cocaine NEGATIVE Methamphetamine NEGATIVE Opiates NEGATIVE Amphetamine NEGATIVE Benzodiazepines NEGATIVE Tricyclic Antidepres NEGATIVE Methadone NEGATIVE Barbiturates NEGATIVE Oxycodone NEGATIVE Propoxyphene (PPX) NEGATIVE 09/24/2013 6:25 AM WBC 11.7 RBC 3.94 HGB 10.30 g/dLHCT 31.20 %MCV 79.0 fLMCH 26.10 pgMCHC 33.0 g/dLRDW SD 45 RDW CV 15.40 %MPV 10.20 fLPLT 185 NRBC# 0.00 NRBC% 0.0 11/02/2013 6:26 PM FREE T4 1.61 TSH <0.06 mIU/L 01/01/2014 2:26 PM Prolactin 12.20 ng/mL 02/01/2014 2:22 PM GLUCOSE 110.0 mg/dLSODIUM 143.0 mmol/LPOTASSIUM 3.50 mmol/ LCHLORIDE 111.0 mmol/LCO2 21.0 mmol/LBUN 5.0 mg/dLCREATININE 0.60 mg/dLCALCIUM 8.60 mg/dLAGE 28 GFR NonAA 121 GFR AA 147 eGFR 60 eGFR AA* 60 10/03/2014 2:55 PM TSH <0.06 mIU/LFREE T4 1.54 History Of Immunizations Name Date Admin Mfg Name Mfg Code Trade Name Lot# Route Inj Vis Given Vis Pub CVX Influenza 09/25/2013 Not Entered NE Not Entered Not Entered Not Entered 10/01/2013 07/14/2016 141 Tdap 09/25/2013 Not Entered NE Not Entered Not Entered Not Entered 07/14/2016 115 History of Past Illness Name Date of Onset Comments , First Normal Jun 29 2009 2:32PM , High Risk Jul 20 2009 3:05PM Vulvovaginitis Jul 20 2009 3:05PM Uterine Contractions Affecting Fetus/[place] Jul 20 2009 3:05PM Anemia Jul 20 [...] 2:57PM Tooth infection Apr 03 2015 2:57PM Acute pain of left shoulder Oct 31 2016 11:17AM Suture check Oct 31 2016 11:17AM Payers Insurance Name Company Name Plan Name Plan Number Policy Number Policy Group Number Start Date [facility] [place] State Plan [facility] [place] State Plan [id number] N/A [employer] [place] State Plan [employer] [place] State Plan [id number] N/A [employer] [place] [id number] Friday, 2008 [employer] [place] [id number] Friday, 2010 [place] [employer] [place] Pro[place] [id number] N/A zzzTest Medicare A Test Medicare A [id number] Sunday, 2009 [employer] [place] [id number] Friday, 2008 History of Encounters Visit Date Visit Type Provider 10/31/2016 Office visit Kyung Abreu ESTIMATOR BINDING 04/03/2015 Office visit Kyung Abreu ESTIMATOR BINDING 02/24/2015 Office visit 02/24/2015 Office visit 02/24/2015 Office visit 02/24/[address] Cj Jerome MD 11/15/2014 Office visit Shilo Jeffries ESTIMATOR BINDING 10/03/2014 Office visit Shilo Jeffries ESTIMATOR BINDING 05/11/2014 Office visit Shilo Jeffries ESTIMATOR BINDING 02/01/2014 Office visit Kyung Abreu ESTIMATOR BINDING 10/28/2013 Office visit Gene Lama MD 09/27/2013 Office visit Kyung Abreu ESTIMATOR BINDING 09/23/2013 Hospital Gene Lama MD 09/15/2013 Office visit Gene Lama MD 09/07/2013 Office visit Aletha Spaulding ESTIMATOR BINDING 08/25/2013 Office visit Gene Lama MD 06/30/2013 Office visit Gene Lama MD 05/19/2013 Office visit Gene Lama MD 03/11/2013 Office visit Gene Lama MD 12/16/2012 Office visit Kyung Abreu ESTIMATOR BINDING 12/16/2012 Hospital Amarilis Harden MD 10/22/2011 [facility] Gene Lama MD 10/16/2011 Office visit [...] visit Gene Lama MD 03/20/2011 Office visit Gnee Lama MD 10/04/2010 Office visit Shakeel Cueto DO 11/09/2009 Office visit India Renee MD 10/27/2009 Office visit India Renee MD 09/13/2009 [facility] India Renee MD 09/11/2009 Office visit India Renee MD 09/04/2009 Office visit India Renee MD 08/14/2009 Office visit India Renee MD 07/27/2009 Office visit India Renee MD 07/20/2009 Office visit India Renee MD 07/20/2009 [facility] India Renee MD 07/20/2009 Office visit India Renee MD 06/29/2009 Office visit India Renee MD 06/01/2009 Office visit Robert Ac MD 05/04/2009 Office visit Robert Ac MD 04/06/2009 Office visit Myron Larsen MD 03/31/2009 Office visit Aaron Medina MD
--- OUTSIDE RECORDS SUMMARY | 2018-06-29 07:49 | XMS REPORT ---
Author Author JANETTE SHAHIDA [facility] Address [address] [place] [address] Care Team Providers Care Department Traffic Freight Router Name Role Phone SHAHIDA SAVAGE Unavailable PROBLEMS Type Condition ICD9-CM Code KHS36-DY Code Onset Dates Condition Status SNOMED Code Problem Third trimester Z34.93 Active 95483212 Problem Seizure disorder G40.909 Active 904087578 Problem Hyperthyroidism E05.90 Active 43559457 ALLERGIES No Information ENCOUNTERS Encounter Location Date Diagnosis [place] [address] [address] Jun, [place] [address] [address] 365[address] Jun, Third trimester Z34.93 and 38 weeks gestation of Z3A.38 [place] [address] 82644- 4417 Jun, Third trimester Z34.93 [place] [address] [place] [id number] [place] [address] 84294- 9081 Jun, Third trimester Z34.93 and Hyperthyroidism E05.90 [place] [address] 26[address]- 2491 Jun, Third trimester Z34.93 [place] [address] [place] [id number] [place] [address] 50289- 0589 Jun, Hyperthyroidism E05.90 ; Third trimester Z34.93 and 35 weeks gestation of Z3A.35 [place] [address] [place] [id number] [place] [address] 14636- 8816 May, screening for streptococcus B Z36.85 ; Third trimester Z34.93 and 36 weeks gestation of Z3A.36 [facility] [address] [place] [id number] May, Caries K02.9 and Dental examination Z01.20 [facility] [address] [place] [id number] [place] [address] 90983- 6916 May, Third trimester Z34.93 ; Hyperthyroidism E05.90 and 35 weeks gestation of Z3A.35 [facility] [address] [address]- [address]60 May, Dental examination Z01.20 [facility] [address] [address] May, Oral pain K13.79 [facility] [address] [address]- 0[address] 31 Apr, 2018 Third trimester Z34.93 ; Hyperthyroidism E05.90 and 32 weeks gestation of Z3A.32 [facility] [address] [place] [id number] [place] [address] 94009- 5026 Apr, [facility] [address] 7[address]- 0699 Apr, Third trimester Z34.93 ; Encounter for immunization Z23 and Hyperthyroidism E05.90 [facility] [address] [place] [id number] [place] [address] 63071- 9620 Mar, [facility] [address] [place] [id number] [place] [address] 24263- 7599 Mar, [facility] [address] [place] [id number] [place] [address] 07823- 8020 Mar, Second trimester Z34.92 ; 26 weeks gestation of Z3A.26 ; Hyperthyroidism E05.90 and Seizure disorder G40.909 [facility] [address] [place] [id number] [place] [address] 62080- 7061 Feb, [facility] [address] 9[address]- 35[address] Feb, care, subsequent in second trimester Z34.82 ; 19 weeks gestation of Z3A.19 ; Hyperthyroidism E05.90 and Vomiting affecting O21.9 [place] [address] [address] Jan, care, subsequent in second trimester Z34.82 ; Hyperthyroidism E05.90 and 17 weeks gestation of Z3A.17 [place] [address] [address] 6044 Jan, [place] [address] [address] 8883 Dec, care, subsequent in second trimester Z34.82 and 14 weeks gestation of Z3A.14 [place] [address] [address] 9427 Dec, Screening for deficiency anemia Z13.0 [place] [address] [address] 09[address] Dec, [place] [address] [address] 1326 Dec, Encounter for test, result unknown Z32.00 [facility] [address] [place] [address] Jan, Hyperthyroidism E05.90 [facility] [address] [id number] [place] [address] Jan Graves disease E05.00 IMMUNIZATIONS No Known Immunizations SOCIAL HISTORY Never Assessed REASON FOR VISIT U/S OB >14 weeks ULTRASOUND/BPP WALK-IN. A.BOOKLESS [facility] RVT PLAN OF CARE VITAL SIGNS MEDICATIONS Unknown Medications RESULTS Name Result Date Reference Range Ultrasound : BIOPHYSICAL PROFILE WITHOUT (IN-HOUSE) 2018-06-22 PROCEDURES Procedure Date Ordered Result Body Site BIOPHYS PROFIL W/O NST Jun 22, 2018 INSTRUCTIONS MEDICATIONS ADMINISTERED No Known Medications MEDICAL (GENERAL) HISTORY Type Description Date Medical History graves disease Medical History seizures Surgical History tonsillectomy as a child Hospitalization History sugery Hospitalization History child
--- OUTSIDE RECORDS SUMMARY | 2018-06-29 07:49 | XMS REPORT ---
Author Author JANETTE SHAHIDA [facility] Address [address] [place] [address] Care Team Providers Care Industrial Psychology Professor Name Role Phone JANETTE SHAHIDA Unavailable PROBLEMS Type Condition ICD9-CM Code TBE18-KW Code Onset Dates Condition Status SNOMED Code Problem Third trimester Z34.93 Active 46341385 Problem Seizure disorder G40.909 Active 047044006 Problem Hyperthyroidism E05.90 Active 35906267 ALLERGIES No Information ENCOUNTERS Encounter Location Date Diagnosis [place] [address] [address] Jun, [facility] [address] [address] Jun, [facility] [address] 87967- 4853 Jun, [place] [address] [address] 7580 Jun, Third trimester Z34.93 [facility] [address] [place] [id number] [place] [address] 95777- 1179 Jun, Hyperthyroidism E05.90 ; Third trimester Z34.93 and 35 weeks gestation of Z3A.35 [facility] [address] [address] 28 May, 2018 screening for streptococcus B Z36.85 ; Third trimester Z34.93 and 36 weeks gestation of Z3A.36 [facility] [address] [place] [id number] [place] [id number] May, Caries K02.9 and Dental examination Z01.20 [facility] [address] [address]- 5326 May, Third trimester Z34.93 ; Hyperthyroidism E05.90 and 35 weeks gestation of Z3A.35 [facility] [address] [address]- 7718 May, Dental examination Z01.20 [facility] [address] [address] May, Oral pain K13.79 [facility] [address] [address]- 8019 Apr, Third trimester Z34.93 ; Hyperthyroidism E05.90 and 32 weeks gestation of Z3A.32 [place] [address] 8[address]48- 9068 Apr, [place] [address] 78860- 5362 Apr, Third trimester Z34.93 ; Encounter for immunization Z23 and Hyperthyroidism E05.90 [place] [address] [address]33- 8647 Mar, [place] [address] 15183- 0122 Mar, [place] [address] [place] [id number] [place] [address] 6[address]01- 8610 Mar, Second trimester Z34.92 ; 26 weeks gestation of Z3A.26 ; Hyperthyroidism E05.90 and Seizure disorder G40.909 [place] [address] [place] [id number] [place] [address] 86010- 4661 Feb, [place] [address] 66[address]- 3388 Feb, care, subsequent in second trimester Z34.82 ; 19 weeks gestation of Z3A.19 ; Hyperthyroidism E05.90 and Vomiting affecting O21.9 [place] [address] [address]- [address] Jan, care, subsequent in second trimester Z34.82 ; Hyperthyroidism E05.90 and 17 weeks gestation of Z3A.17 [facility] [address], [place] [address] Jan, [facility] [address] [place] [id number] [address]- 9[address] Dec, care, subsequent in second trimester Z34.82 and 14 weeks gestation of Z3A.14 [place] [address], [place] [address] 27 Dec, 2017 Screening for deficiency anemia Z13.0 [place] [address], [place] [address]- 89[address] Dec, [place] [address] [place] [id number] [address]- 4695 Dec, Encounter for test, result unknown Z32.00 [facility] [address] [place] [address] Jan, Hyperthyroidism E05.90 [facility] [address] [id number] [place] [address] Jan 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 A.[facility]OOKLESS [facility] RVT PLAN OF CARE Activity Details Pending Test Ultrasound : OB F/U (IN-HOUSE) VITAL SIGNS MEDICATIONS Unknown Medications RESULTS No Results PROCEDURES Procedure Date Ordered Result Body Site OB US, FOLLOW-UP, PER FETUS Jun 19, 2018 INSTRUCTIONS MEDICATIONS ADMINISTERED No Known Medications MEDICAL (GENERAL) HISTORY Type Description Date Medical History graves disease Medical History seizures Surgical History tonsillectomy as a child [facility] child
[2018-06-29] MEDS: D5 LR IV SOLUTION 1,000 ML IV SCH ×2 (07:50→14:01)
--- OUTSIDE RECORDS SUMMARY | 2018-06-29 07:50 | XMS REPORT ---
Author Author JANETTE SHAHIDA [facility] Address [address] [place] [address] Care Team Providers Care Data Modeling Specialist Name Role Phone JANETTEROSSI RENNERHANY Unavailable PROBLEMS Type Condition ICD9-CM Code UHA92-AY Code Onset Dates Condition Status SNOMED Code Problem Seizure disorder G40.909 Active 543426494 Problem care, subsequent in second trimester Z34.82 Active 861783283 Problem Hyperthyroidism E05.90 Active 45928248 ALLERGIES No Information ENCOUNTERS Encounter Location Date Diagnosis [place] [address] [address] May, [facility] [address] [address]- [address] May, [facility] [address] [address]- [address] Apr, [place] [address] [address]- 1778 Apr, [facility] [address] [place] [id number] [place] [address] 25692- 8512 Apr, [facility] [address] [address]- 5[address] Mar, [facility] [address] [place] [id number] [place] [address] 95357- 5017 Mar, Second trimester Z34.92 ; 26 weeks gestation of Z3A.26 ; Hyperthyroidism E05.90 and Seizure disorder G40.909 [facility] [address] [id number] [place] [address] 27917- 5857 Feb, [facility] [address] [address]- 79[address] Feb, care, subsequent in second trimester Z34.82 ; 19 weeks gestation of Z3A.19 ; Hyperthyroidism E05.90 and Vomiting affecting O21.9 [place] [address] [place] [address]59- 8291 Jan, care, subsequent in second trimester Z34.82 ; Hyperthyroidism E05.90 and 17 weeks gestation of Z3A.17 [place] [address] [place] [id number] [place] [address] 42673- 6268 Jan, [place] [address] [place] [id number] [place] [address] 50537- 1583 Dec, care, subsequent in second trimester Z34.82 and 14 weeks gestation of Z3A.14 [place] [address] [place] [id number] [place] [address] 31003- 3268 Dec, Screening for deficiency anemia Z13.0 [place] [address] [place] [id number] [place] [address] 92293- 6467 Dec, [place] [address] [place] [id number] [place] [address] 61782- 8922 Dec, Encounter for test, result unknown Z32.00 [facility] [address] [place] [address] Jan, Hyperthyroidism E05.90 [facility] [address] [id number] [place] [address] Jan Graves disease E05.00 IMMUNIZATIONS No Known Immunizations SOCIAL HISTORY Never Assessed REASON FOR VISIT OB 4wk f/u -- jim camilo PLAN OF CARE Activity Details Follow Up 4 Weeks, 4 Weeks Reason: VITAL SIGNS Height 61 in 2018-02-26 Weight 131.0 lbs 2018-02-26 Temperature 98.0 degrees Fahrenheit 2018-02-26 Heart Rate 70 bpm 2018-02-26 Respiratory Rate 18 2018-02-26 BMI 24.752 kg/m2 2018-02-26 Blood pressure systolic 116 mmHg 2018-02-26 Blood pressure diastolic 70 mmHg 2018-02-26 MEDICATIONS Medication Instructions Dosage Frequency Start Date End Date Duration Status Vol-Care Rx 1 MG Orally Once a day 1 tablet 24h Jan, 30 day(s) Active Diclegis 10-10 MG Orally Once a day 2 tablets at bedtime on an empty stomach 24h Feb, 30 day(s) Active RESULTS No Results PROCEDURES Procedure Date Ordered Result Body Site URINE-NO MICRO Feb 26, 2018 VENIPUNCT, ROUTINE* Feb 26, 2018 [facility] Feb [facility], 2018 INSTRUCTIONS MEDICATIONS ADMINISTERED No Known Medications MEDICAL (GENERAL) HISTORY Type Description Date Medical History graves disease Medical History seizures Surgical History tonsillectomy as a child Hospitalization History sugery Hospitalization History child
--- OUTSIDE RECORDS SUMMARY | 2018-06-29 07:50 | XMS REPORT ---
Author Author JANETTE SHAHIDA [facility] Address [address] [place] [address] Care Team Providers Care Senior Trial Attorney Name Role Phone SHAHIDA SAVAGE Unavailable PROBLEMS Type Condition ICD9-CM Code FWD76-XO Code Onset Dates Condition Status SNOMED Code Problem Third trimester Z34.93 Active 34419738 Problem Seizure disorder G40.909 Active 257153858 Problem Hyperthyroidism E05.90 Active 81843917 ALLERGIES Substance Reaction Event Type Date Status Vanbecca hives Drug Allergy May, Active ENCOUNTERS Encounter Location Date Diagnosis [facility] [address] [address] Jun, [facility] [address] [address] May, [facility] [address] [id number] May, Caries K02.9 and Dental examination Z01.20 [facility] [address] [place] [address] 89573- 5476 May, Third trimester Z34.93 ; Hyperthyroidism E05.90 and 35 weeks gestation of Z3A.35 [facility] [address] [address]- [address] 19 May, 2018 Dental examination Z01.20 [facility] [address] [address] May, Oral pain K13.79 [facility] [address] [place] [address] 77288- 6368 Apr, Third trimester Z34.93 ; Hyperthyroidism E05.90 and 32 weeks gestation of Z3A.32 [place] [address] [address] Apr, [place] [address] [place] [id number] [place] [address] 98121- 6962 Apr, Third trimester Z34.93 ; Encounter for immunization Z23 and Hyperthyroidism E05.90 [place] [address] [place] [id number] [place] [address] 39144- 1256 Mar, [place] [address] [place] [id number] [place] [address] 27456- 5725 Mar, [place] [id number] [place] [address] 54917- 6968 Mar, Second trimester Z34.92 ; 26 weeks gestation of Z3A.26 ; Hyperthyroidism E05.90 and Seizure disorder G40.909 [place] [id number] [place] [address] 56179- 0710 Feb, [place] [address] [place] [id number] [place] [address] 38627- 5883 Feb, care, subsequent in second trimester Z34.82 ; 19 weeks gestation of Z3A.19 ; Hyperthyroidism E05.90 and Vomiting affecting O21.9 [place] [address] [place] [address] 23545- 8308 Jan, care, subsequent in second trimester Z34.82 ; Hyperthyroidism E05.90 and 17 weeks gestation of Z3A.17 [place] [address], [place] [address]- 04[address] Jan, [place] [id number] [place] [address] 46086- 0439 Dec, care, subsequent in second trimester Z34.82 and 14 weeks gestation of Z3A.14 [place] [id number] [place] [address] 73493- 0928 Dec, Screening for deficiency anemia Z13.0 [place] [id number] [address]- 9661 Dec, [facility] [address] [facility] [id number] [place] [address]- 8829 Dec, Encounter for test, result unknown Z32.00 [facility] [address] [place] [address] Jan, Hyperthyroidism E05.90 [facility] [id number] [place] [address] Jan Graves disease E05.00 IMMUNIZATIONS No Known Immunizations SOCIAL HISTORY Never Assessed REASON FOR VISIT OB 2wk f/u, ob urine dip--tcuppettRN, -Having upper thigh pain bilaterally intermittently PLAN OF CARE Activity Details Follow Up 1 Week, 1 Week, 1 Week, 1 Week, 1 Week Reason: VITAL SIGNS Height 61 in 2018-06-03 Weight 146.7 lbs 2018-06-03 Temperature 98.1 degrees Fahrenheit 2018-06-03 Heart Rate 84 bpm 2018-06-03 Respiratory Rate 20 2018-06-03 BMI 27.719 kg/m2 2018-06-03 Blood pressure systolic 110 mmHg 2018-06-03 Blood pressure diastolic 78 mmHg 2018-06-03 MEDICATIONS Medication Instructions Dosage Frequency Start Date End Date Duration Status Amoxicillin 875 MG Orally every 12 hrs 1 tablet 12h May, 10 day (s) Active Tylenol 325 MG Orally every 4 hrs 1 tablet as needed 4h Active Cyclobenzaprine HCl 10 mg Orally Three times a day 1 tablet as needed 8h 24 Apr, 2018 Active Ferrous Sulfate 325 (65 Fe) MG Orally Once a day 1 tablet 24h Mar, 30 day(s) Active Vol-Care Rx 1 MG Orally Once a day 1 tablet 24h Jan, 30 day(s) Active RESULTS Name Result Date Reference Range UA OB DIP (IN HOUSE) 2018-06-03 Glucose negative Protein trace PROCEDURES Procedure Date Ordered Result Body Site URINE-NO MICRO Jun 03, 2018 INSTRUCTIONS MEDICATIONS ADMINISTERED No Known Medications MEDICAL (GENERAL) HISTORY Type Description Date Medical History graves disease Medical History seizures Surgical History tonsillectomy as a child Hospitalization History sugery Hospitalization History child
--- OUTSIDE RECORDS SUMMARY | 2018-06-29 07:50 | XMS REPORT ---
Author Author JANETTE SHAHIDA [facility] Address [address] [place] [address] Care Team Providers Care Press Setter Name Role Phone JNAETTEROSSI RENNERHANY Unavailable PROBLEMS Type Condition ICD9-CM Code UWC19-KV Code Onset Dates Condition Status SNOMED Code Problem Seizure disorder G40.909 Active 371673112 Problem care, subsequent in second trimester Z34.82 Active 950228727 Problem Hyperthyroidism E05.90 Active 88828709 ALLERGIES No Information ENCOUNTERS Encounter Location Date Diagnosis [place] [address] [address] May, [address] [address] May, [place] [address] [place] [id number] [place] [address]- 44[address] 31 Apr, 2018 Third trimester Z34.93 ; Hyperthyroidism E05.90 and 32 weeks gestation of Z3A.32 [place] [address] [place] [id number] [place] [address] 24296- 5758 Apr, [place] [address] [address]- [address] 15 Apr, 2018 Third trimester Z34.93 ; Encounter for immunization Z23 and Hyperthyroidism E05.90 [place] [address] [place] [id number] [place] [address] 86863- 8180 Mar, [place] [address] [address]- 5[address] Mar, [place] [address] [place] [id number] [place] [address] 83705- 5184 Mar, Second trimester Z34.92 ; 26 weeks gestation of Z3A.26 ; Hyperthyroidism E05.90 and Seizure disorder G40.909 [place] [address] [place] [address]65- 3659 Feb, [place] [address] [place] [id number] [place] [address] 73737- 6232 Feb, care, subsequent in second trimester Z34.82 ; 19 weeks gestation of Z3A.19 ; Hyperthyroidism E05.90 and Vomiting affecting O21.9 [place] [address] [place] [id number] [place] [address] 75062- 1187 Jan, care, subsequent in second trimester Z34.82 ; Hyperthyroidism E05.90 and 17 weeks gestation of Z3A.17 [place] [address] [place] [id number] [place] [address] 52661- 6787 Jan, [place] [address] [place] [id number] [place] [address] 86461- 8393 Dec, care, subsequent in second trimester Z34.82 and 14 weeks gestation of Z3A.14 [place] [address] [place] [id number] [place] [address] 86315- 4831 Dec, Screening for deficiency anemia Z13.0 [place] [address] [place] [address] 41259- 3153 Dec, [place] [id number] [place] [address] 92099- 3751 Dec, Encounter for test, result unknown Z32.00 [facility] [address] [place] [address] Jan, Hyperthyroidism E05.90 [facility] [id number] [place] [address] Jan Graves disease E05.00 IMMUNIZATIONS No Known Immunizations SOCIAL HISTORY Never Assessed REASON FOR VISIT OB 2wk f/u, ob urine dip-awoods PLAN OF CARE Activity Details Follow Up 2 Weeks, 2 Weeks Reason: Pending Test TSH w/ FREE T4 Pending Test THYROID STIMULATING IMMUNOGLOBULIN VITAL SIGNS Height 61 in 2018-05-13 Weight 142.2 lbs 2018-05-13 Temperature 98.9 degrees Fahrenheit 2018-05-13 Heart Rate 92 bpm 2018-05-13 Respiratory Rate 20 2018-05-13 BMI 26.868 kg/m2 2018-05-13 Blood pressure systolic 110 mmHg 2018-05-13 Blood pressure diastolic 64 mmHg 2018-05-13 MEDICATIONS Medication Instructions Dosage Frequency Start Date End Date Duration Status Vol-Care Rx 1 MG Orally Once a day 1 tablet 24h Jan, 30 day(s) Active Cyclobenzaprine HCl 10 mg Orally Three times a day 1 tablet as needed 8h Apr, Active Ferrous Sulfate 325 (65 Fe) MG Orally Once a day 1 tablet 24h Mar, 30 day(s) Active RESULTS Name Result Date Reference Range UA OB DIP (IN HOUSE) 2018-05-13 Glucose neg Protein trace PROCEDURES Procedure Date Ordered Result Body Site URINE-NO MICRO May 13, 2018 LAB NOT BILLED BY [facility] May 13, 2018 INSTRUCTIONS MEDICATIONS ADMINISTERED No Known Medications MEDICAL (GENERAL) HISTORY Type Description Date Medical History graves disease Medical History seizures Surgical History tonsillectomy as a child [facility] Hospital[facility] History child
--- OUTSIDE RECORDS SUMMARY | 2018-06-29 07:50 | XMS REPORT ---
Author Author JANETTE SHAHIDA [facility] Address [address] [place] [address] Care Team Providers Care Ironworker Wire Fence Erector Name Role Phone JANETTEROSSI RENNERHANY Unavailable PROBLEMS Type Condition ICD9-CM Code LMP41-SH Code Onset Dates Condition Status SNOMED Code Problem Seizure disorder G40.909 Active 081899885 Problem care, subsequent in second trimester Z34.82 Active 197315077 Problem Hyperthyroidism E05.90 Active 71548775 ALLERGIES No Information ENCOUNTERS Encounter Location Date Diagnosis [place] [address] [address] May, [facility] [address] [address] May, [facility] [address] [address] Apr, [place] [address] [address] 5947 Apr, [facility] [address] [place] [id number] [place] [address]228- 0104 Apr, [facility] [address] [address] Mar, [facility] [address] [id number] [place] [address] 04827- 7225 Mar, Second trimester Z34.92 ; 26 weeks gestation of Z3A.26 ; Hyperthyroidism E05.90 and Seizure disorder G40.909 [facility] [address] [place] [id number] [place] [address] 03187- 8246 Feb, [facility] [address] [address] Feb, care, subsequent in second trimester Z34.82 ; 19 weeks gestation of Z3A.19 ; Hyperthyroidism E05.90 and Vomiting affecting O21.9 [place] [address] [address] Jan, care, subsequent in second trimester Z34.82 ; Hyperthyroidism E05.90 and 17 weeks gestation of Z3A.17 [place] [address] [place] [address] 22552- 3904 Jan, [place] [address] [place] [address] 75310- 4985 Dec, care, subsequent in second trimester Z34.82 and 14 weeks gestation of Z3A.14 [place] [address] [address] 5[address] Dec, Screening for deficiency anemia Z13.0 [place] [address] [place] [address] 10979- 7119 Dec, [place] [address] [place] [address] 30827- 2054 Dec, Encounter for test, result unknown Z32.00 [facility] [address] [place] [address] Jan, Hyperthyroidism E05.90 [facility] [address] [id number] [place] [address] Jan Graves disease E05.00 IMMUNIZATIONS No Known Immunizations SOCIAL HISTORY Never Assessed REASON FOR VISIT Prior Authorization Request PLAN OF CARE VITAL SIGNS MEDICATIONS Unknown Medications RESULTS No Results PROCEDURES No Known procedures INSTRUCTIONS MEDICATIONS ADMINISTERED No Known Medications MEDICAL (GENERAL) HISTORY Type Description Date Medical History graves disease Medical History seizures Surgical History tonsillectomy as a child Hospitalization History sugery Hospitalization History child
--- OUTSIDE RECORDS SUMMARY | 2018-06-29 07:50 | XMS REPORT ---
Author Author JANETTE SHAHIDA [facility] Address [address] [place] [address] Care Team Providers Care Sustainability Engineer Name Role Phone SHAHIDA SAVAGE Unavailable PROBLEMS Type Condition ICD9-CM Code RBW27-XB Code Onset Dates Condition Status SNOMED Code Problem Seizure disorder G40.909 Active 219369712 Problem care, subsequent in second trimester Z34.82 Active 294071330 Problem Hyperthyroidism E05.90 Active 89399874 ALLERGIES No Information ENCOUNTERS Encounter Location Date Diagnosis [place] [address] [address]- [address] May, [facility] [address] [address]- 47[address] May, [facility] [address] [address]- 9226 Apr, [facility] [address] 36673- 5674 Apr, [facility] [address] 9[address]21- 1424 Apr, Third trimester Z34.93 ; Encounter for immunization Z23 and Hyperthyroidism E05.90 [facility] [address] [place] [id number] [place] [address] 75702- 5428 Mar, [facility] [address] 42[address]- 2593 Mar, [facility] [address] [place] [id number] [place] [address] 45793- 0970 Mar, Second trimester Z34.92 ; 26 weeks gestation of Z3A.26 ; Hyperthyroidism E05.90 and Seizure disorder G40.909 [place] [address], [place] [address] Feb, [place] [address] [place] [address] [place] [address] 08660- 2061 Feb, care, subsequent in second trimester Z34.82 ; 19 weeks gestation of Z3A.19 ; Hyperthyroidism E05.90 and Vomiting affecting O21.9 [place] [id number] [place] [address] 95217- 2629 Jan, care, subsequent in second trimester Z34.82 ; Hyperthyroidism E05.90 and 17 weeks gestation of Z3A.17 [place] [address] [place] [address] [place] [address] 84926- 2491 Jan, [place] [address] [place] [address] [place] [address] 91837- 2024 Dec, care, subsequent in second trimester Z34.82 and 14 weeks gestation of Z3A.14 [place] [address] [place] [address] 91473- 3509 27 Dec, 2017 Screening for deficiency anemia Z13.[address] [place] [address] 52314- 6819 Dec, [address] [place] [address] 13343- 2084 Dec, Encounter for test, result unknown Z32.00 [facility] [address] [place] [address] Jan, Hyperthyroidism E05.90 [facility] [address] [id number] [place] [address] Jan Graves disease E05.00 IMMUNIZATIONS No Known Immunizations SOCIAL HISTORY Never Assessed REASON FOR VISIT Medication question PLAN OF CARE VITAL SIGNS MEDICATIONS Medication Instructions Dosage Frequency Start Date End Date Duration Status Cyclobenzaprine HCl 10 mg Orally Three times a day 1 tablet as needed 8h 24 Apr, 2018 Active RESULTS No Results PROCEDURES No Known procedures INSTRUCTIONS MEDICATIONS ADMINISTERED No Known Medications MEDICAL (GENERAL) HISTORY Type Description Date Medical History graves disease Medical History seizures Surgical History tonsillectomy as a child Hospitalization History [facility] Hospitalization History child
--- OUTSIDE RECORDS SUMMARY | 2018-06-29 07:50 | XMS REPORT ---
Author Author DEEPTI HERNANDEZ [facility] Address [address] [place] [address] Care Team Providers Care Fact Checker Name Role Phone DEEPTI HERNANDEZ Unavailable PROBLEMS Type Condition ICD9-CM Code BAH15-UV Code Onset Dates Condition Status SNOMED Code Problem Third trimester Z34.93 Active 37582744 Problem Seizure disorder G40.909 Active 713236964 Problem Hyperthyroidism E05.90 Active 14048436 ALLERGIES Substance Reaction Event Type Date Status Vanbecca hives Drug Allergy May, Active ENCOUNTERS Encounter Location Date Diagnosis [facility] [address] [address] Jun, [facility] [address] [address]- 387[address] May, [facility] [address] [id number] May, [facility] [address] 8[address]- 0273 May, Third trimester Z34.93 ; Hyperthyroidism E05.90 and 35 weeks gestation of Z3A.35 [facility] [address] [address]- 6175 May, Dental examination Z01.20 [facility] [address] [address] May, Oral pain K13.79 [facility] [address] 67[address]- 0773 Apr, Third trimester Z34.93 ; Hyperthyroidism E05.90 and 32 weeks gestation of Z3A.32 [facility] [address] [place] [address]- 6341 Apr, [place] [address] 67[address]- 7143 Apr, Third trimester Z34.93 ; Encounter for immunization Z23 and Hyperthyroidism E05.90 [place] [address] [place] [id number] [place] [address] 06147- 9812 Mar, [place] [address] 8[address]99- 6371 Mar, [place] [address] [place] [id number] [place] [address] 41597- 8372 Mar, Second trimester Z34.92 ; 26 weeks gestation of Z3A.26 ; Hyperthyroidism E05.90 and Seizure disorder G40.909 [place] [address] [address]- 6846 Feb, [place] [address] 89399- 1185 Feb, care, subsequent in second trimester Z34.82 ; 19 weeks gestation of Z3A.19 ; Hyperthyroidism E05.90 and Vomiting affecting O21.9 [place] [id number] [place] [address] 75694- 8538 Jan, care, subsequent in second trimester Z34.82 ; Hyperthyroidism E05.90 and 17 weeks gestation of Z3A.17 [place] [address] [place] [id number] [place] [address] 04271- 1910 Jan, [place] [address] [place] [id number] [place] [address] 24220- 5897 Dec, care, subsequent in second trimester Z34.82 and 14 weeks gestation of Z3A.14 [place] [address] [place] [id number] [place] [address] 28764- 1854 Dec, Screening for deficiency anemia Z13.[address] [address]- 1825 Dec, [facility] [address] [facility] [id number] [place] [address]- 4[address] Dec, Encounter for test, result unknown Z32.00 [facility] [address] [place] [address] Jan, Hyperthyroidism E05.90 [facility] [address] [id number] [place] [address] Jan Graves disease E05.00 IMMUNIZATIONS No Known Immunizations SOCIAL HISTORY Never Assessed REASON FOR VISIT tooth pain- right upper started Sat JStrasserRN, 35 wk preg OB Martin PLAN OF CARE Activity Details Follow Up F/u with dental appt and prn Reason: VITAL SIGNS Height 61 in 2018-06-01 Weight 142.0 lbs 2018-06-01 Temperature 97.6 degrees Fahrenheit 2018-06-01 Heart Rate 108 bpm 2018-06-01 Respiratory Rate 20 2018-06-01 BMI 26.83 kg/m2 2018-06-01 Blood pressure systolic 110 mmHg 2018-06-01 Blood pressure diastolic 80 mmHg 2018-06-01 MEDICATIONS Medication Instructions Dosage Frequency Start Date [...] 1 tablet 24h Mar, 30 day(s) Active Amoxicillin 875 MG Orally every 12 hrs 1 tablet 12h May, 10 day (s) Active RESULTS No Results PROCEDURES No Known procedures INSTRUCTIONS MEDICATIONS ADMINISTERED No Known Medications MEDICAL (GENERAL) HISTORY Type Description Date Medical History graves disease Medical History seizures Surgical History tonsillectomy as a child [facility] child
--- OUTSIDE RECORDS SUMMARY | 2018-06-29 07:50 | XMS REPORT ---
Author Author JANETTE SHAHIDA [facility] Address [address] [place] [address] Care Team Providers Care Vacuum Closing Machine Operator Name Role Phone JANETTEROSSI RENNERHANY Unavailable PROBLEMS Type Condition ICD9-CM Code KSK52-LM Code Onset Dates Condition Status SNOMED Code Problem Seizure disorder G40.909 Active 246707882 Problem care, subsequent in second trimester Z34.82 Active 375160384 Problem Hyperthyroidism E05.90 Active 12018463 ALLERGIES No Information ENCOUNTERS Encounter Location Date Diagnosis [place] [address] [address]- [address]27 May, [facility] [address] [address]- 4561 May, [facility] [address] [address]- 3247 Apr, [place] [address] 85207- 4570 Apr, [facility] [address] [place] [id number] [place] [address] 69892- 4959 Mar, [facility] [address] 17[address]- 1377 Mar, [facility] [address] [place] [id number] [place] [address] 22227- 1080 Mar, Second trimester Z34.92 ; 26 weeks gestation of Z3A.26 ; Hyperthyroidism E05.90 and Seizure disorder G40.909 [facility] [address] [place] [id number] [place] [address] 23456- 0523 Feb, [facility] [address] [address]- 7217 Feb, care, subsequent in second trimester Z34.82 ; 19 weeks gestation of Z3A.19 ; Hyperthyroidism E05.90 and Vomiting affecting O21.9 [place] [address] [address] 82[address] Jan, care, subsequent in second trimester Z34.82 ; Hyperthyroidism E05.90 and 17 weeks gestation of Z3A.17 [place] [address] [place] [address] 21288- 7903 Jan, [place] [address] [place] [address] 11274- 0537 Dec, care, subsequent in second trimester Z34.82 and 14 weeks gestation of Z3A.14 [place] [address] [address]- 5508 Dec, Screening for deficiency anemia Z13.0 [place] [address] [place] [address] 67433- 2062 Dec, [place] [address] [place] [address] 10525- 5984 Dec, Encounter for test, result unknown Z32.00 [facility] [address] [place] [address] Jan, Hyperthyroidism E05.90 [facility] [address] [id number] [place] [address] Jan Graves disease E05.00 IMMUNIZATIONS No Known Immunizations SOCIAL HISTORY Never Assessed REASON FOR VISIT lab result/med order PLAN OF CARE VITAL SIGNS MEDICATIONS Medication Instructions Dosage Frequency Start Date End Date Duration Status Ferrous Sulfate 325 (65 Fe) MG Orally Once a day 1 tablet 24h Mar, 30 day(s) Active RESULTS No Results PROCEDURES No Known procedures INSTRUCTIONS MEDICATIONS ADMINISTERED No Known Medications MEDICAL (GENERAL) HISTORY Type Description Date Medical History graves disease Medical History seizures Surgical History tonsillectomy as a child Hospitalization History sugery Hospitalization History child
--- OUTSIDE RECORDS SUMMARY | 2018-06-29 07:50 | XMS REPORT ---
Author Author MANUELITO JEFF [facility] Address [address] [place] [address] Care Team Providers Care Rail Technician Name Role Phone MANUELITO JEFF Unavailable PROBLEMS Type Condition ICD9-CM Code LQN09-ZO Code Onset Dates Condition Status SNOMED Code Problem Third trimester Z34.93 Active 69082274 Problem Seizure disorder G40.909 Active 187783481 Problem Hyperthyroidism E05.90 Active 02805181 ALLERGIES Substance Reaction Event Type Date Status Vantin hives Drug Allergy May, Active ENCOUNTERS Encounter Location Date Diagnosis [facility] [address] [address]- [address] Jun, [facility] [address] 14[address]- 4738 Jun, [facility] [address] [address]- [address]14 May, screening for streptococcus B Z36.85 ; Third trimester Z34.93 and 36 weeks gestation of Z3A.36 [facility] [address] [place] [address] [id number] [place] [address] [id number] May, Caries K02.9 and Dental examination Z01.20 [facility] [address] [place] [id number] [place] [address] 07576- 9159 21 May, 2018 Third trimester Z34.93 ; Hyperthyroidism E05.90 and 35 weeks gestation of Z3A.35 [facility] [address] [address]- 3492 May, Dental examination Z01.20 [facility] [address] [place] [place] [id number] [place] [address]404 [address] May, Oral pain K13.79 [place] [address] [place] [address] [id number] [place] [address] 71441- 9277 Apr, Third trimester Z34.93 ; Hyperthyroidism E05.90 and 32 weeks gestation of Z3A.32 [facility] [address] [place] [id number] [place] [address] 04084- 0035 Apr, [facility] [address] [place] [id number] [place] [address] 10705- 8535 Apr, Third trimester Z34.93 ; Encounter for immunization Z23 and Hyperthyroidism E05.90 [facility] [address] [place] [id number] [place] [address] 47829- 9988 Mar, [place] [address] [place] [id number] [place] [address] 33150- 4894 Mar, [place] [address] [place] [id number] [place] [address] 34641- 5919 Mar, Second trimester Z34.92 ; 26 weeks gestation of Z3A.26 ; Hyperthyroidism E05.90 and Seizure disorder G40.909 [place] [address] [place] [id number] [place] [address] 72964- 1647 Feb, [place] [address] [place] [id number] [place] [address] 72121- 4017 Feb, care, subsequent in second trimester Z34.82 ; 19 weeks gestation of Z3A.19 ; Hyperthyroidism E05.90 and Vomiting affecting O21.9 [place] [address] [place] [id number] [place] [address] 57796- 1821 Jan, care, subsequent in second trimester Z34.82 ; Hyperthyroidism E05.90 and 17 weeks gestation of Z3A.17 [place] [address] [place] [id number] [place] [address] 38108- 7586 Jan, [place] [address] [place] [id number] [place] [address] 55475- 5519 Dec, care, subsequent in second trimester Z34.82 and 14 weeks gestation of Z3A.14 [facility] [address] [facility] [id number] [place] [address]- 7551 Dec, Screening for deficiency anemia Z13.0 [place] [address] [facility] [id number] [place] [address]- 3681 Dec, [place] [address] [facility] [id number] [place] [address]- 7468 Dec, Encounter for test, result unknown Z32.00 [facility] [address] [place] [address] Jan, Hyperthyroidism E05.90 [facility] [address] [id number] [place] [address] Jan Graves disease E05.00 IMMUNIZATIONS No Known Immunizations SOCIAL HISTORY Never Assessed REASON FOR VISIT Dental Assessment PLAN OF CARE Activity Details Follow Up addie Reason:dental dx/tx VITAL SIGNS MEDICATIONS Medication Instructions Dosage Frequency Start Date End Date Duration Status Cyclobenzaprine HCl 10 mg Orally Three times a day 1 tablet as needed 8h Apr, Active Amoxicillin 875 MG Orally every 12 hrs 1 tablet 12h May, 10 day (s) Active Ferrous Sulfate 325 (65 Fe) MG Orally Once a day 1 tablet 24h Mar, 30 day(s) Active Vol-Care Rx 1 MG Orally Once a day 1 tablet 24h Jan, 30 day(s) Active Tylenol 325 MG Orally every 4 hrs 1 tablet as needed 4h Active RESULTS No Results PROCEDURES Procedure Date Ordered Result Body Site SCREENING OF A PATIENT Jun 01, 2018 Billing Notes on claim Jun 01, 2018 INSTRUCTIONS MEDICATIONS ADMINISTERED No Known Medications MEDICAL (GENERAL) HISTORY Type Description Date Medical History graves disease Medical History seizures Surgical History tonsillectomy as a child Hospitalization History sugery Hospitalization History child
--- OUTSIDE RECORDS SUMMARY | 2018-06-29 07:50 | XMS REPORT ---
Author Author JANETTE SHAHIDA [facility] Address [address] [place] [address] Care Team Providers Care Per Diem Registered Nurse Name Role Phone JANETTE SHAHIDA Unavailable PROBLEMS Type Condition ICD9-CM Code SPN01-RH Code Onset Dates Condition Status SNOMED Code Problem Third trimester Z34.93 Active 85143239 Problem Seizure disorder G40.909 Active 156463780 Problem Hyperthyroidism E05.90 Active 31967111 ALLERGIES Substance Reaction Event Type Date Status Vanbecca hives Drug Allergy May, Active ENCOUNTERS Encounter Location Date Diagnosis [place] [address] [address]- [address] Jun, [facility] [address] [address]- 5733 Jun, [facility] [address] [place] [address] 51684- 8505 May, screening for streptococcus B Z36.85 ; Third trimester Z34.93 and 36 weeks gestation of Z3A.36 [facility] [id number] [place] [address] [id number] May, Caries K02.9 and Dental examination Z01.20 [facility] [address] [id number] [place] [address] 69862- 1119 21 May, 2018 Third trimester Z34.93 ; Hyperthyroidism E05.90 and 35 weeks gestation of Z3A.[address] [address]- 7814 May, Dental examination Z01.20 [facility] [address] [address] May, Oral pain K13.79 [place] [address], [place] [address]- 5323 Apr, Third trimester Z34.93 ; Hyperthyroidism E05.90 and 32 weeks gestation of Z3A.32 [facility] [address] [place] [id number] [place] [address] 10225- 1975 Apr, [facility] [id number] [place] [address] 98967- 8487 Apr, Third trimester Z34.93 ; Encounter for immunization Z23 and Hyperthyroidism E05.90 [facility] [address] [place] [id number] [place] [address] 82895- 4049 Mar, [place] [id number] [place] [address] 56070- 4541 Mar, [place] [address] [id number] [place] [address] 05089- 0365 Mar, Second trimester Z34.92 ; 26 weeks gestation of Z3A.26 ; Hyperthyroidism E05.90 and Seizure disorder G40.909 [place] [address] [id number] [place] [address] 04621- 5402 Feb, [place] [address] [address] [id number] [place] [address] 08373- 3673 Feb, care, subsequent in second trimester Z34.82 ; 19 weeks gestation of Z3A.19 ; Hyperthyroidism E05.90 and Vomiting affecting O21.9 [place] [address] [place] [address] 81152- 2462 Jan, care, subsequent in second trimester Z34.82 ; Hyperthyroidism E05.90 and 17 weeks gestation of Z3A.17 [place] [address] [id number] [place] [address] 73076- 4703 Jan, [facility] [address] [place] [address] 13507- 6835 Dec, care, subsequent in second trimester Z34.82 and 14 weeks gestation of Z3A.14 [facility] [address] [facility] [id number] [place] [address]- 98[address] Dec, Screening for deficiency anemia Z13.0 [place] [address] [facility] [id number] [place] [address]- 6227 Dec, [place] [address] [facility] [id number] [address]1 Dec, Encounter for test, result unknown Z32.00 [facility] [address] [place] [address] Jan, Hyperthyroidism E05.90 [facility] [address] [id number] [place] [address] Jan Graves disease E05.00 IMMUNIZATIONS No Known Immunizations SOCIAL HISTORY Never Assessed REASON FOR VISIT OB 1wk f/u, ob urine dip, GBS swab, States she thought she had a yeast infection on Thanksgiving so she used monistat, states she had started to spot a bit today- Flako Franco RN PLAN OF CARE Activity Details Follow Up 1 Week Reason: Pending Test CULTURE, GROUP B STREP (VAGINAL) VITAL SIGNS Height 61 in 2018-06-10 Weight 144 lbs 2018-06-10 Temperature 98.0 degrees Fahrenheit 2018-06-10 Heart Rate 80 bpm 2018-06-10 Respiratory Rate 18 2018-06-10 BMI 27.209 kg/m2 2018-06-10 Blood pressure systolic 124 mmHg 2018-06-10 Blood pressure diastolic 74 mmHg 2018-06-10 MEDICATIONS Medication Instructions Dosage Frequency Start Date End Date Duration Status Vol-Care Rx 1 MG Orally Once a day 1 tablet 24h Jan, 30 day(s) Active Tylenol 325 MG Orally every 4 hrs 1 tablet as needed 4h Active Ferrous Sulfate 325 (65 Fe) MG Orally Once a day 1 tablet 24h Mar, 30 day(s) Active Cyclobenzaprine HCl 10 mg Orally Three times a day 1 tablet as needed 8h 24 Apr, 2018 Active RESULTS Name Result Date Reference Range UA OB DIP (IN HOUSE) 2018-06-10 Glucose Negative Protein Trace PROCEDURES Procedure Date Ordered Result Body Site URINE-NO MICRO Jun 10, 2018 LAB NOT BILLED BY [facility] Jun 10, 2018 INSTRUCTIONS MEDICATIONS ADMINISTERED No Known Medications MEDICAL (GENERAL) HISTORY Type Description Date Medical History graves disease Medical History seizures Surgical History tonsillectomy as a child Hospitalization History [facility] Hospitalization History child
--- OUTSIDE RECORDS SUMMARY | 2018-06-29 07:50 | XMS REPORT ---
Author Author JANETTE SHAHIDA [facility] Address [address] [place] [address] Care Team Providers Care Commissioning Specialist Name Role Phone JANETTEROSSI RENNERHANY Unavailable PROBLEMS Type Condition ICD9-CM Code HAS61-MJ Code Onset Dates Condition Status SNOMED Code Problem Seizure disorder G40.909 Active 698607711 Problem care, subsequent in second trimester Z34.82 Active 470463605 Problem Hyperthyroidism E05.90 Active 70278089 ALLERGIES Substance Reaction Event Type Date Status Vanbecca hives Drug Allergy Mar, Active ENCOUNTERS Encounter Location Date Diagnosis [place] [id number] [place] [address]69[address] 9796 May, [facility] [id number] [place] [address] 77552[address] 4698 May, [facility] [address] [address] Apr, [facility] [id number] [place] [address] 58531[address] 7046 Apr, [facility] [id number] [place] [address] 94816[address] 0801 Mar, [facility] [id number] [place] [address] 67095- 8320 Mar, [facility] [id number] [place] [address] 08139[address] 7741 Mar, Second trimester Z34.92 ; 26 weeks gestation of Z3A.26 ; Hyperthyroidism E05.90 and Seizure disorder G40.909 [facility] [id number] [place] [address] 89209[address] 5216 Feb, [place] [address] [id number] [address] Feb, care, subsequent in second trimester Z34.82 ; 19 weeks gestation of Z3A.19 ; Hyperthyroidism E05.90 and Vomiting affecting O21.9 [place] [address] [place] [address] 24243- 8756 Jan, care, subsequent in second trimester Z34.82 ; Hyperthyroidism E05.90 and 17 weeks gestation of Z3A.17 [place] [address] [place] [address] 71463- 8630 Jan, [place] [id number] [place] [address] 11455- 3412 Dec, care, subsequent in second trimester Z34.82 and 14 weeks gestation of Z3A.14 [place] [id number] [place] [address] 56277- 8550 Dec, Screening for deficiency anemia Z13.[address] [place] [address] 59128- 0332 Dec, [place] [id number] [place] [address] 82242- 9455 Dec, Encounter for test, result unknown Z32.00 [facility] [address] [place] [address] Jan, Hyperthyroidism E05.90 [facility] [id number] [place] [address] Jan Graves disease E05.00 IMMUNIZATIONS No Known Immunizations SOCIAL HISTORY Never Assessed REASON FOR VISIT OB 4wk f/u, OB Dip, Glucose Tolerance Testing and CBC today-[facility] PLAN OF CARE Activity Details Follow Up 2 Weeks, 2 Weeks, 2 Weeks Reason: VITAL SIGNS Height 61 in 2018-03-31 Weight 135 lbs 2018-03-31 Temperature 97.8 degrees Fahrenheit 2018-03-31 Heart Rate 94 bpm 2018-03-31 Respiratory Rate 18 2018-03-31 BMI 25.508 kg/m2 2018-03-31 Blood pressure systolic 110 mmHg 2018-03-31 Blood pressure diastolic 62 mmHg 2018-03-31 MEDICATIONS Medication Instructions Dosage Frequency Start Date End Date Duration Status Diclegis 10-10 MG Orally Once a day 2 tablets at bedtime on an empty stomach 24h Feb, 30 day(s) Not-Taking Vol-Care Rx 1 MG Orally Once a day 1 tablet 24h Jan, 30 day(s) Active RESULTS No Results PROCEDURES Procedure Date Ordered Result Body Site URINE-NO MICRO Mar 31, 2018 [facility] Mar [facility], 2018 VENIPUNCT, ROUTINE* Mar 31, 2018 INSTRUCTIONS MEDICATIONS ADMINISTERED No Known Medications MEDICAL (GENERAL) HISTORY Type Description Date Medical History graves disease Medical History seizures Surgical History tonsillectomy as a child Hospitalization History sugery Hospitalization History child
--- OUTSIDE RECORDS SUMMARY | 2018-06-29 07:51 | XMS REPORT ---
Author Author JANETTE SHAHIDA [facility] Address [address] [place] [address] Care Team Providers Care Supervisor Electronics Inspection Name Role Phone SHAHIDA SAVAGE Unavailable PROBLEMS Type Condition ICD9-CM Code VDY68-CL Code Onset Dates Condition Status SNOMED Code Problem Seizure disorder G40.909 Active 802565230 Problem care, subsequent in second trimester Z34.82 Active 847909432 Problem Hyperthyroidism E05.90 Active 52834518 ALLERGIES Substance Reaction Event Type Date Status Vanbecca hives Drug Allergy Dec, Active ENCOUNTERS Encounter Location Date Diagnosis [address] [address] Mar, [place] [id number] [place] [address]2336- 6719 Feb, [address] [address] Feb, care, subsequent in second trimester Z34.82 ; 19 weeks gestation of Z3A.19 ; Hyperthyroidism E05.90 and Vomiting affecting O21.9 [place] [address] [place] [address] 74151- 9165 Jan, care, subsequent in second trimester Z34.82 ; Hyperthyroidism E05.90 and 17 weeks gestation of Z3A.17 [place] [address] [place] [address] 08880[address]008 Jan, [address] [address] Dec, care, subsequent in second trimester Z34.82 and 14 weeks gestation of Z3A.[address] [place] [address] Dec, Screening for deficiency anemia Z13.0 [facility] [address] [facility] [id number] [place] [address] Dec, [facility] [address] [facility] [id number] [address] Dec, Encounter for test, result unknown Z32.00 [facility] [address] [place] [address] Jan, Hyperthyroidism E05.90 [facility] [address] [id number] [place] [address] Jan Graves disease E05.00 IMMUNIZATIONS No Known Immunizations SOCIAL HISTORY Never Assessed REASON FOR VISIT OB-intake PLAN OF CARE Activity Details Follow Up 4 Weeks, 4 Weeks, 4 Weeks Reason: VITAL SIGNS Height 61 in 2018-01-09 Weight 128 lbs 2018-01-09 Temperature 98.0 degrees Fahrenheit 2018-01-09 Heart Rate 86 bpm 2018-01-09 Respiratory Rate 20 2018-01-09 BMI 24.185 kg/m2 2018-01-09 Blood pressure systolic 120 mmHg 2018-01-09 Blood pressure diastolic 76 mmHg 2018-01-09 MEDICATIONS Medication Instructions Dosage Frequency Start Date End Date Duration Status Dilantin 100 MG Orally 3 times a day 1 tab 8h Not-Taking Methimazole 5 MG Orally 3 times a day 1 tab 8h Not-Taking RESULTS No Results PROCEDURES Procedure Date Ordered Result Body Site RUBELLA ANTIBODY January 09, 2018 ASSAY THYROID STIM HORMONE January 09, 2018 ASSAY OF FREE THYROXINE January 09, 2018 DRUG TEST PRSMV DIR OPT OBS January 09, 2018 URINALYSIS, AUTO, W/O SCOPE January 09, 2018 BLOOD TYPING, ABO January 09, 2018 BLOOD TYPING, RH (D) January 09, 2018 COMPLETE CBC W/AUTO DIFF WBC January 09, 2018 No Charge January 09, 2018 URINE CULTURE/COLONY COUNT January 09, 2018 RBC ANTIBODY SCREEN January 09, 2018 CULTURE, BACTERIA, OTHER January 09, 2018 INSTRUCTIONS MEDICATIONS ADMINISTERED No Known Medications MEDICAL (GENERAL) HISTORY Type Description Date Medical History graves disease Medical History seizures Surgical History tonsillectomy as a child [facility] Hospital[facility] child
--- OUTSIDE RECORDS SUMMARY | 2018-06-29 07:51 | XMS REPORT | CCD ---
Author Author CARMEN BALDERAS Organization Unknown Address [address] [facility] [address] [place] [id number] Care Team Providers Care Shipping And Receiving Coordinator Name Role Phone JUANARPAN MARTINEZ MD [facility] Prisurg Vital Signs Unknown or Not Available. Allergies Allergy Code Allergy Type Reaction Status CEFPODOXIME Drug allergy Active Procedures Unknown or Not Available. History of Immunizations Immunization Code Date Td (adult), adsorbed 09 05/20/2003 Td (adult), adsorbed 09 06/18/2005 Tdap 115 09/24/2013 Influenza, seasonal, injectable 141 09/24/2013 Problems Problem Code Start Date Resolved Date Status GRAVES DISEASE 010715710 Active Results Unknown or Not Available. Active Medications Medication Code Dose Units Frequency Route Modification Start Date/Time Acetaminophen/Codeine 300MG-30MG Oral Tablet 930918 1 TABLET NEEDED EVERY 8 HR BY MOUTH FOR PAIN 2013 08:09 Docusate Sodium 100MG Oral Capsule 1346052 100 MILLIGRAMS NEEDED EVERY 12 H BY MOUTH for constipation 08:09 Ibuprofen 800MG Oral Tablet 327061 800 MILLIGRAMS NEEDED EVERY 8 HR BY MOUTH FOR PAIN 09/25/2013 08:08 PreQue 10 03WR-336DT-40-1MG-1M Oral Tablet 495960 0.5 EACH DAILY ORAL 09/25/2013 08:08 Medications Administered During Visit Unknown or Not Available. Encounters Encounter Diagnosis Diagnosis Code Start Date CONTUSION FACE SCALP NCK 920 08/19/2014 Social History Smoking Status Code Start Date End Date Former smoker 6561400 Patient Decision Aids Unknown or Not Available. Discharge Instructions You were admitted to [facility] on 08/19/2014 with a principal diagnosis of CONTUSION FACE SCALP NCK. You were discharged from [facility] on 08/19/2014. Should you have any questions prior to discharge, please contact a member of your healthcare team. If you have left the hospital and have any questions, please contact your primary care physician. Chief Complaint and Reason For Visit Chief Complaint Date of Onset LIP INJURY Function Status Unknown or Not Available. Referral/Transition of Care Unknown or Not Available.
--- OUTSIDE RECORDS SUMMARY | 2018-06-29 07:51 | XMS REPORT ---
Author Author JANETTE SHAHIDA [facility] Address [address] [place] [address] Care Team Providers Care Sas Analyst Name Role Phone SHAHIDA SAVAGE Unavailable PROBLEMS Type Condition ICD9-CM Code RQN53-GZ Code Onset Dates Condition Status SNOMED Code Problem Seizure disorder G40.909 Active 840839573 Problem care, subsequent in second trimester Z34.82 Active 755460191 Problem Hyperthyroidism E05.90 Active 39793340 ALLERGIES Substance Reaction Event Type Date Status Vanbecca hives Drug Allergy Dec, Active ENCOUNTERS Encounter Location Date Diagnosis [address] [address] Mar, [place] [id number] [place] [address] 17074- 4292 Feb, [address] [address] Feb, care, subsequent in second trimester Z34.82 ; 19 weeks gestation of Z3A.19 ; Hyperthyroidism E05.90 and Vomiting affecting O21.9 [place] [address] [place] [address] 81340- 1535 Jan, care, subsequent in second trimester Z34.82 ; Hyperthyroidism E05.90 and 17 weeks gestation of Z3A.17 [place] [address] [place] [address] 20146- 5094 Jan, [address] [address]- [address] Dec, care, subsequent in second trimester Z34.82 and 14 weeks gestation of Z3A.[address] [place] [address]- [address] Dec, Screening for deficiency anemia Z13.0 [facility] [address] [facility] [id number] [address] Dec, [facility] [address] [facility] [id number] [address] Dec, Encounter for test, result unknown Z32.00 [facility] [address] [place] [address] Jan, Hyperthyroidism E05.90 [facility] [address] [id number] [place] [address] Jan Graves disease E05.00 IMMUNIZATIONS No Known Immunizations SOCIAL HISTORY Never Assessed REASON FOR VISIT obhx PLAN OF CARE VITAL SIGNS MEDICATIONS Unknown Medications RESULTS No Results PROCEDURES No Known procedures INSTRUCTIONS MEDICATIONS ADMINISTERED No Known Medications MEDICAL (GENERAL) HISTORY Type Description Date Medical History graves disease Medical History seizures Surgical History tonsillectomy as a child [facility] Hospitalization History child
--- OUTSIDE RECORDS SUMMARY | 2018-06-29 07:51 | XMS REPORT ---
Author HERVE Johnson [facility] eClinicalWorks Address Unknown Phone Unavailable Care Team Providers Care Solar Resource Assessor Name Role Phone HERVE SIMPSON CP Unavailable Allergies, Adverse Reactions, Alerts Substance Reaction Event Type Vantin hives Drug Allergy Problems Problem Type Condition Code Onset Dates Condition Status Assessment Graves disease E05.00 Active Medications Medication Code System Code Instructions Start Date End Date Status Dosage Methimazole [facility] [address]-56 5 MG Orally 3 times a day 1 tab Dilantin [facility] [address]-25 100 MG Orally 3 times a day 1 tab Procedures Procedure Coding System Code Date COMPLETE CBC W/AUTO DIFF WBC CPT-4 65307 February 01, 2016 COMPREHEN METABOLIC PANEL CPT-4 96772 February 01, 2016 MEASURE BLOOD OXYGEN LEVEL CPT-4 06004 February 01, 2016 Office Visit, New Pt., Level 4 CPT-4 16390 February 01, 2016 ASSAY, TRIIODOTHYRONINE (T3) CPT-4 10252 February 01, 2016 ASSAY THYROID STIM HORMONE CPT-4 78895 February 01, 2016 VENIPUNCT, ROUTINE* CPT-4 63906 February 01, 2016 ASSAY OF FREE THYROXINE CPT-4 64094 February 01, 2016 Vital Signs Date/Time: February 01, 2016 Cardiac Monitoring Heart Rate 80 bpm Weight 109.2 lbs Height 61 in BMI 20.63 Index Oximetry 98 % Blood Pressure Diastolic 80 mmHg Blood Pressure Systolic 122 mmHg Results No Known Results Summary Purpose eClinicalWorks Submission
--- OUTSIDE RECORDS SUMMARY | 2018-06-29 07:51 | XMS REPORT ---
Author Author CHERIE MENA [facility] Address [address] [place] [address] Care Team Providers Care Hazardous Waste Technician Name Role Phone RAJESHCHERIE Unavailable PROBLEMS Type Condition ICD9-CM Code XUE66-FZ Code Onset Dates Condition Status SNOMED Code Problem Seizure disorder G40.909 Active 102254812 Problem care, subsequent in second trimester Z34.82 Active 748859684 Problem Hyperthyroidism E05.90 Active 47462112 ALLERGIES No Information ENCOUNTERS Encounter Location Date Diagnosis [address] [address] Mar, [address] [address] Feb, [address] [address] Feb, care, subsequent in second trimester Z34.82 ; 19 weeks gestation of Z3A.19 ; Hyperthyroidism E05.90 and Vomiting affecting O21.9 [place] [address] [place] [address]360- 2699 Jan, care, subsequent in second trimester Z34.82 ; Hyperthyroidism E05.90 and 17 weeks gestation of Z3A.17 [place] [address] [place] [address] 8[address]15- 5679 Jan, [address] [address]- [address] Dec, care, subsequent in second trimester Z34.82 and 14 weeks gestation of Z3A.14 [place] [address] [place] [address] 76155- 1116 Dec, Screening for deficiency anemia Z13.0 [facility] [address] [facility] [id number] [place] [address] Dec, [facility] [address] [facility] [id number] [place] [address] Dec, Encounter for test, result unknown Z32.00 [facility] [address] [place] [address] Jan, Hyperthyroidism E05.90 [facility] [address] [id number] [place] [address] Jan Graves disease E05.00 IMMUNIZATIONS No Known Immunizations SOCIAL HISTORY Never Assessed REASON FOR VISIT test (walk-in) PLAN OF CARE VITAL SIGNS MEDICATIONS Unknown Medications RESULTS Name Result Date Reference Range TEST, URINE (IN HOUSE) 2017-12-31 RESULTS Positive Lot # [id number] Control + Exp date 08/2018 PROCEDURES Procedure Date Ordered Result Body Site URINE TEST December 31, 2017 INSTRUCTIONS MEDICATIONS ADMINISTERED No Known Medications MEDICAL (GENERAL) HISTORY Type Description Date Medical History graves disease Medical History seizures Surgical History tonsillectomy as a child Hospitalization History [facility] Hospitalization History child
--- OUTSIDE RECORDS SUMMARY | 2018-06-29 07:51 | XMS REPORT | Continuity of Care Document ---
Author Author [facility] Address Unknown Phone Unavailable Allergies There is no data. Medications There is no data. Problems Date Dx Coded Attending Type Code Diagnosis Diagnosed By 01/30/2018 SHAHIDA SAVAGE MD, Ot Z34.82 ENCOUNTER FOR SUPRVSN OF NORMAL PREGNANC 01/30/2018 SHAHIDA SAVAGE MD, Ot Z3A.17 17 WEEKS GESTATION OF 02/10/2018 SHAHIDA SAVAGE MD, Ot Z34.82 ENCOUNTER FOR SUPRVSN OF NORMAL PREGNANC 02/10/2018 SHAHIDA SAVAGE MD, Ot Z3A.17 17 WEEKS GESTATION OF 04/06/2018 SHAHIDA SAVAGE MD Ot Z34.82 ENCOUNTER FOR SUPRVSN OF NORMAL PREGNANC 04/06/2018 SHAHIDA SAVAGE MD Ot Z3A.17 17 WEEKS GESTATION OF 04/10/2018 SHAHIDA SAVAGE MD Ot O40.2XX0 POLYHYDRAMNIOS, SECOND TRIMESTER, NOT AP 04/10/2018 SHAHIDA SAVAGE MD Ot Z3A.27 27 WEEKS GESTATION OF 04/22/2018 SHAHIDA SAVAGE MD, Ot O40.2XX0 POLYHYDRAMNIOS, SECOND TRIMESTER, NOT AP 04/22/2018 SHAHIDA SAVAGE MD, Ot Z3A.27 27 WEEKS GESTATION OF 05/25/2018 SHAHIDA SAVAGE MD Ot Z34.93 ENCNTR FOR SUPRVSN OF NORMAL PREG, UNSP, 05/25/2018 SHAHIDA SAVAGE MD Ot Z3A.34 34 WEEKS GESTATION OF 06/05/2018 SHAHIDA SAVAGE MD Ot Z34.93 ENCNTR FOR SUPRVSN OF NORMAL PREG, UNSP, 06/05/2018 SHAHIDA SAVAGE MD Ot Z3A.34 34 WEEKS GESTATION OF Procedures There is no data. Results Test Result Range CULTURE, GENITAL - 01/09/18 00:00 CULTURE, GENITAL SEE NOTE NRG PENTA SCREEN - 01/29/18 14:49 Maternal Weight 130 lbs NRG Est'd Date of Delivery 07/06/2018 NRG PATTI Determined by LMP NRG Mother's Ethnic Origin NRG Number of Fetuses 1 NRG Insulin Depend Diabetic NO NRG Repeat Specimen NO NRG Hx Of Neural Tube Defects NO NRG Prev Down Synd NO NRG Donor Egg NO NRG Donor Age: Egg Retrieval NOT GIVEN NRG Cigarette smoker NOT GIVEN NRG INTERPRETATION: SEE NOTE NRG Risk for ONTD <1:5000 NRG Age Risk Down Syndrome 1:684 NRG SHERLYN Down Syndrome Risk <1:5000 <1:270 SHERLYN Trisomy 18 Risk <1:5000 <1:100 Calc'd Gestational Age 17.4 NRG AFP, Serum 50.0 ng/mL NRG AFP MoM 1.01 NRG hCG, Serum 23.0 IU/mL NRG hCG MoM 0.69 NRG Estriol, Free 1.36 ng/mL NRG Estriol MoM 1.20 NRG Inhibin A, Dimeric 255 pg/mL NRG Inhibin A MoM 1.48 NRG h-hCG, Serum 30.2 mcg/L NRG h-hCG MoM 1.25 NRG Date of 1985 NRG Collection Date 01/29/2018 NRG TSH w/ FREE T4 - 02/26/18 14:04 TSH 0.48 mIU/L NRG T4, FREE 1.0 ng/dL 0.8-1.8 CBC - 03/31/18 15:34 WHITE BLOOD CELL COUNT 11.0 Thousand/uL 3.8-10.8 RED BLOOD CELL COUNT 3.53 Million/uL 3.80-5.10 HEMOGLOBIN 9.3 g/dL 11.7-15.5 HEMATOCRIT 28.5 % 35.0-45.0 MCV 80.7 fL 80.0-100.0 MCH 26.3 pg 27.0-33.0 MCHC 32.6 g/dL 32.0-36.0 RDW 13.3 % 11.0-15.0 PLATELET COUNT 236 Thousand/uL 140-400 MPV 10.4 fL 7.5-12.5 ABSOLUTE NEUTROPHILS 7975 cells/uL 8370-8255 ABSOLUTE LYMPHOCYTES 2167 cells/uL 850-3900 ABSOLUTE MONOCYTES 671 cells/uL 200-950 ABSOLUTE EOSINOPHILS 132 cells/uL 15-500 ABSOLUTE BASOPHILS 55 cells/uL 0-200 NEUTROPHILS 72.5 % NRG LYMPHOCYTES 19.7 % NRG MONOCYTES 6.1 % NRG EOSINOPHILS 1.2 % NRG BASOPHILS 0.5 % NRG TSH w/ FREE T4 - 05/13/18 15:01 TSH 0.95 mIU/L NRG T4, FREE 0.9 ng/dL 0.8-1.8 THYROID STIMULATING IMMUNOGLOBULIN - 05/13/18 15:03 TSI <89 % baseline <140 CULTURE, GROUP B STREP (VAGINAL) - 06/10/18 17:38 STREPTOCOCCUS, GROUP B CULTURE SEE NOTE NRG Encounters ACCT No. Visit Date/Time Discharge Status Pt. Type Provider Facility Loc./Unit Complaint [id number] 10/31/2016 12:11:39 10/31/2016 23:59:59 CLS Outpatient Kyung Abreu [id number] 04/03/2015 15:46:23 04/03/2015 23:59:59 CLS Outpatient Kyung Abreu [id number] 02/24/2015 16:00:53 02/24/2015 23:59:59 CLS Outpatient Cj Jerome [id number] 11/15/2014 14:52:14 11/15/2014 23:59:59 CLS Outpatient Shilo Jeffries [id number] 10/03/2014 14:53:58 10/03/2014 23:59:59 CLS Outpatient Shilo Jeffries [id number] 05/11/2014 15:24:23 05/11/2014 23:59:59 CLS Outpatient Shilo Jeffries [id number] 02/01/2014 14:38:17 02/01/2014 23:59:59 CLS Outpatient Kyung Abreu [id number] 10/28/2013 14:11:44 10/28/2013 23:59:59 CLS Outpatient Gene Lama [id number] 10/11/2013 12:51:49 10/11/2013 23:59:59 CLS Outpatient Gene Lama [id number] 09/27/2013 15:09:07 09/27/2013 23:59:59 CLS Outpatient Kyung Abreu [id number] 09/15/2013 15:33:52 09/15/2013 23:59:59 CLS Outpatient Gene Lama [id number] 09/07/2013 14:39:58 09/07/2013 23:59:59 CLS Outpatient Aletha Spaulding [id number] 08/25/2013 15:37:26 08/25/2013 23:59:59 CLS Outpatient Gene Lama Geovanna [id number] 05/21/2018 11:57:00 05/21/2018 23:59:59 CLS Outpatient SHAHIDA SAVAGE MD [facility] RAD THIRD TRIMESTER [id number] 04/09/2018 11:52:00 04/09/2018 23:59:59 CLS Outpatient SHAHIDA SAVAGE MD [facility] RAD SECOND TRIMESTER [id number] 01/29/2018 10:09:00 01/29/2018 23:59:59 CLS Outpatient SHAHIDA SAVAGE MD [facility] CARE,SUBSEQUENT IN SECOND TRIME [id number] 06/22/2018 14:00:00 06/22/2018 23:59:59 CLS Outpatient HERVE SIMPSON [facility] [id number] 06/10/2018 14:20:00 Document Registration [id number] 05/13/2018 14:20:00 Document Registration [id number] 03/31/2018 14:20:00 Document Registration [id number] 02/26/2018 13:20:00 Document Registration [id number] 01/29/2018 14:00:00 Document Registration [id number] 01/09/2018 11:00:00 Document Registration [id number] 01/09/2018 00:00:00 Document Registration
--- OUTSIDE RECORDS SUMMARY | 2018-06-29 07:51 | XMS REPORT ---
Author Author JANETTE SHAHIDA [facility] Address [address] [place] [address] Care Team Providers Care Buttonhole Maker Name Role Phone JANETTEROSSI RENNERHANY Unavailable PROBLEMS Type Condition ICD9-CM Code EEC19-DW Code Onset Dates Condition Status SNOMED Code Problem Seizure disorder G40.909 Active 425035392 Problem care, subsequent in second trimester Z34.82 Active 581448645 Problem Hyperthyroidism E05.90 Active 20915535 ALLERGIES No Information ENCOUNTERS Encounter Location Date Diagnosis [place] [id number] [place] [address] Mar, [place] [address] [place] [address]- [address] Feb, [place] [address] [place] [address]- [address] Feb, care, subsequent in second trimester Z34.82 ; 19 weeks gestation of Z3A.19 ; Hyperthyroidism E05.90 and Vomiting affecting O21.9 [place] [address] [place] [address] 7[address]- [address] Jan, care, subsequent in second trimester Z34.82 ; Hyperthyroidism E05.90 and 17 weeks gestation of Z3A.17 [place] [address] [place] [address] 0[address]- [address] Jan, [place] [address] [place] [address]- 74[address] Dec, care, subsequent in second trimester Z34.82 and 14 weeks gestation of Z3A.14 [place] [id number] [place] [address] Dec, Screening for deficiency anemia Z13.0 [facility] [address] [facility] [id number] [place] [address] Dec, [facility] [address] [facility] [id number] [place] [address] Dec, Encounter for test, result unknown Z32.00 [facility] [address] [place] [address] Jan, Hyperthyroidism E05.90 [facility] [address] [id number] [place] [address] Jan Graves disease E05.00 IMMUNIZATIONS No Known Immunizations SOCIAL HISTORY Never Assessed REASON FOR VISIT OB 4wk f/u., Pt would like to know if she could get a rx for vitamins, she is not taking them currently.-awoods PLAN OF CARE Activity Details Follow Up 4 Weeks, 4 Weeks Reason: VITAL SIGNS Height 61 in 2018-01-29 Weight 130 lbs 2018-01-29 Temperature 98.2 degrees Fahrenheit 2018-01-29 Heart Rate 100 bpm 2018-01-29 Respiratory Rate 20 2018-01-29 BMI 24.563 kg/m2 2018-01-29 Blood pressure systolic 114 mmHg 2018-01-29 Blood pressure diastolic 64 mmHg 2018-01-29 MEDICATIONS Medication Instructions Dosage Frequency Start Date End Date Duration Status Vol-Care Rx 1 MG Orally Once a day 1 tablet 24h Jan, 30 day(s) Active RESULTS No Results PROCEDURES Procedure Date Ordered Result Body Site URINE-NO MICRO January 29, 2018 CHEMILUMINESCENT ASSAY January 29, 2018 LAB NOT BILLED BY [facility] January 29, 2018 VENIPUNCT, ROUTINE* January 29, 2018 INSTRUCTIONS MEDICATIONS ADMINISTERED No Known Medications MEDICAL (GENERAL) HISTORY Type Description Date Medical History graves disease Medical History seizures Surgical History tonsillectomy as a child Hospitalization History sugery Hospitalization History child
--- OUTSIDE RECORDS SUMMARY | 2018-06-29 07:51 | XMS REPORT | CCD ---
Author Author JASPREET YEBOAH Organization Unknown Address [address] [facility] [address] [place], [place] [address] Care Team Providers Care Kennel Attendant Name Role Phone ALAN PARRA, MARZENA Kimball ALAN PARRA, MARZENA Robles Vital Signs Unknown. Allergies Allergy Code Allergy Type Reaction Status CEFPODOXIME 0 Drug allergy (disorder) Active Procedures Unknown. History of Immunizations Unknown. Problems Problem Code Start Date Resolved Date Status INTRAUTERINE , INCIDENTAL 87855500 Active GRAVES DISEASE 181801853 Active VAGINAL DELIVERY 650 10/22/2011 Active Results Unknown. Medications Unknown. Medications Administered Unknown. Encounters Unknown. Social History Smoking Status Code Start Date End Date Former smoker [id number] Patient Decision Aids Unknown. Instructions You were admitted to [facility] on 09/14/2013. You were discharged from [facility] on 09/14/2013. Should you have any questions prior to discharge, please contact a member of your healthcare team. If you have left the hospital and have any questions, please contact your primary care physician. Chief Complaint and Reason For Visit Chief Complaint Date of Onset TOOTHACHE Function Status Unknown. Referral/Transition of Care Unknown.
--- OUTSIDE RECORDS SUMMARY | 2018-06-29 07:51 | XMS REPORT ---
Author Author JANETTE SHAHIDA [facility] Address [address] [place] [address] Care Team Providers Care Creative Writing English Professor Name Role Phone JANETTEROSSI RENNERHANY Unavailable PROBLEMS Type Condition ICD9-CM Code VER87-HS Code Onset Dates Condition Status SNOMED Code Problem Seizure disorder G40.909 Active 168078307 Problem care, subsequent in second trimester Z34.82 Active 850733389 Problem Hyperthyroidism E05.90 Active 36417481 ALLERGIES No Information ENCOUNTERS Encounter Location Date Diagnosis [place] [id number] [place] [phone] Mar, [place] [id number] [place] [address] Feb, [place] [id number] [place] [address] 60[address] Feb, care, subsequent in second trimester Z34.82 ; 19 weeks gestation of Z3A.19 ; Hyperthyroidism E05.90 and Vomiting affecting O21.9 [place] [id number] [place] [address] 8[address] Jan, care, subsequent in second trimester Z34.82 ; Hyperthyroidism E05.90 and 17 weeks gestation of Z3A.17 [place] [id number] [place] [address] 14683- 2690 Jan, [place] [id number] [place] [address] 37098- 6784 Dec, care, subsequent in second trimester Z34.82 and 14 weeks gestation of Z3A.14 [place] [id number] [place] [address]72[address] Dec, Screening for deficiency anemia Z13.0 [facility] [address] [facility] [id number] [place] [address] Dec, [facility] [address] [facility] [id number] [place] [phone] Dec, Encounter for test, result unknown Z32.00 [facility] [place] [address] [place] [address] Jan, Hyperthyroidism E05.90 [facility] [address] [id number] [place] [address] Jan Graves disease E05.00 IMMUNIZATIONS No Known Immunizations SOCIAL HISTORY Never Assessed REASON FOR VISIT Returned call/labs PLAN OF CARE VITAL SIGNS MEDICATIONS Unknown Medications RESULTS No Results PROCEDURES No Known procedures INSTRUCTIONS MEDICATIONS ADMINISTERED No Known Medications MEDICAL (GENERAL) HISTORY Type Description Date Medical History graves disease Medical History seizures Surgical History tonsillectomy as a child Hospitalization History [facility] Hospitalization History child
--- OUTSIDE RECORDS SUMMARY | 2018-06-29 07:51 | XMS REPORT ---
Author HERVE Johnson Organization [employer] Address Unknown Phone Unavailable Care Team Providers Care Nitrator Operator Name Role Phone HERVE SIMPSON CP Unavailable Allergies No Known Allergies Problems Problem Type Condition Code Onset Dates Condition Status Assessment Hyperthyroidism E05.90 Active Medications No Known Medications Results No Known Results Summary Purpose [employer] Submission
--- OUTSIDE RECORDS SUMMARY | 2018-06-29 07:51 | XMS REPORT | CCD ---
Author Author JASPREET YEBOAH Organization Unknown Address [address] [place], [place] [id number] Care Team Providers Care Bracelet Former Name Role Phone ALAN PARRA, MARZENA Austin Attphys MARZENA PHILLIPS MDsukatharine Vital Signs Unknown. Allergies Allergy Code Allergy Type Reaction Status CEFPODOXIME Drug allergy (disorder) Active Procedures Unknown. History of Immunizations Immunization Code Date Tdap 115 09/24/2013 Influenza, seasonal, injectable 141 09/24/2013 Problems Problem Code Start Date Resolved Date Status GRAVES DISEASE 496344217 Active Results TSH Test Name Code Test Result Test Units Test Date/ Time TSH 10726-5 0.0600 mIU/L 12/31/2013 00:20 PROLACTIN Test Name Code Test Result Test Units Test Date/ Time Prolactin 2842-3 13.0000 ng/mL 12/31/2013 00:20 T4 FREE Test Name Code Test Result Test Units Test Date/ Time FREE T4 3024-7 1.6800 NG/DL 12/31/2013 00:20 CBC W/ AUTO DIFF (RFLX MAN DIFF IF IND) Test Name Code Test Result Test Units Test Date/ Time WBC 14711-0 12.2000 TH/CMM 12/31/2013 00:20 RBC 789-8 5.3200 ML/CMM 12/31/2013 00:20 HGB 718-7 15.0000 G/DL 12/31/2013 00:20 HCT 4544-3 44.2000 % 12/31/2013 00:20 MCV 83.0000 FL 12/31/2013 00:20 MCH 28.2000 PG 12/31/2013 00:20 MCHC 33.9000 G/DL 12/31/2013 00:20 RDW SD 56.0000 FL 12/31/2013 00:20 MPV 8.7000 FL 12/31/2013 00:20 PLT 777-3 312.0000 TH/CMM 12/31/2013 00:20 %NEUT 75.4000 % 12/31/2013 00:20 %LYMP 19.1000 % 12/31/2013 00:20 %MIXED 5.5000 % 12/31/2013 00:20 #NEUT 9.2000 TH/CMM 12/31/2013 00:20 #LYMP 2.3000 TH/CMM 12/31/2013 00:20 #MIXED 0.7000 TH/CMM 12/31/2013 00:20 MANUAL DIFF NOT IND N/A 12/31/2013 00:20 COMPREHENSIVE METABOLIC PANEL Test Name Code Test Result Test Units Test Date/ Time GLUCOSE 2345-7 92.0000 MG/DL 12/31/2013 00:20 SODIUM 2951-2 138.0000 MEQ/L 12/31/2013 00:20 POTASSIUM 2823-3 3.6000 MEQ/L 12/31/2013 00:20 CHLORIDE 2075-0 109.0000 MEQ/L 12/31/2013 00:20 CO2 2028-9 18.0000 MEQ/L 12/31/2013 00:20 BUN 3094-0 3.0000 MG/DL 12/31/2013 00:20 CREATININE 2160-0 0.7000 MG/DL 12/31/2013 00:20 SGOT/AST 1920-8 22.0000 IU/L 12/31/2013 00:20 SGPT/ALT 1742-6 25.0000 IU/L 12/31/2013 00:20 ALK PHOS 6768-6 62.0000 IU/L 12/31/2013 00:20 TOTAL PROTEIN 2885-2 7.9000 G/DL 12/31/2013 00:20 ALBUMIN 1751-7 4.5000 G/DL 12/31/2013 00:20 TOTAL BILI 1975-2 1.5000 MG/DL 12/31/2013 00:20 CALCIUM 51941-1 9.2000 MG/DL 12/31/2013 00:20 AGE 28.0000 yrs 12/31/2013 00:20 GFR NonAA 101.0000 12/31/2013 00:20 GFR AA 122.0000 12/31/2013 00:20 eGFR 60.0000 mL/min/1.7 12/31/2013 00:20 eGFR AA* 60.0000 mL/min/1.7 12/31/2013 00:20 Medications Medication Code Dose Units Frequency Route Modification Start Date/Time Stop Date/Time PreQue 10 77BO-237OZ-80-1MG-1M Oral Tablet 927183 0.5 EACH DAILY ORAL 09/25/2013 08:08 Ibuprofen 800MG Oral Tablet 536061 800 MILLIGRAMS NEEDED EVERY 8 HR BY MOUTH FOR PAIN 09/25/2013 08:08 Docusate Sodium 100MG Oral Capsule 5161733 100 MILLIGRAMS NEEDED EVERY 12 H BY MOUTH for constipation 08:09 Acetaminophen/Codeine 300MG-30MG Oral Tablet 213913 1 TABLET NEEDED EVERY 8 HR BY MOUTH FOR PAIN 2013 08:09 Medications Administered Unknown. Encounters Encounter Diagnosis Diagnosis Code Start Date SYNCOPE AND COLLAPSE 7802 12/30/2013 Social History Smoking Status Code Start Date End Date Former smoker 7632631 Patient Decision Aids Unknown. Discharge Instructions You were admitted to [facility] on 12/30/2013 with a principle diagnosis of SYNCOPE AND COLLAPSE. You had the following tests done: Prolactin You were discharged from [facility] on 12/31/2013. Should you have any questions prior to discharge, please contact a member of your healthcare team. If you have left the hospital and have any questions, please contact your primary care physician. Chief Complaint and Reason For Visit Chief Complaint Date of Onset SEIZURE Function Status Unknown. Referral/Transition of Care Unknown.
--- OUTSIDE RECORDS SUMMARY | 2018-06-29 07:51 | XMS REPORT ---
Author Author HERVE SIMPSON [facility] Address [address] [place] [address] Care Team Providers Care Marshmallow Maker Name Role Phone HERVE SIMPSON Unavailable PROBLEMS Type Condition ICD9-CM Code ZZI67-IN Code Onset Dates Condition Status SNOMED Code Problem Seizure disorder G40.909 Active 342931408 Problem care, subsequent in second trimester Z34.82 Active 487433420 Problem Hyperthyroidism E05.90 Active 55510152 ALLERGIES No Information ENCOUNTERS Encounter Location Date Diagnosis [place] [id number] [place] [address] Mar, [place] [id number] [place] [address] 21767[address] 14[address] Feb, [place] [id number] [place] [address] 24275- [address] Feb, care, subsequent in second trimester Z34.82 ; 19 weeks gestation of Z3A.19 ; Hyperthyroidism E05.90 and Vomiting affecting O21.9 [place] [id number] [place] [address] 47545- [address] Jan, care, subsequent in second trimester Z34.82 ; Hyperthyroidism E05.90 and 17 weeks gestation of Z3A.17 [place] [address] [place] [id number] [place] [address] 97180[address] Jan, [place] [id number] [place] [address] 88516- [address] Dec, care, subsequent in second trimester Z34.82 and 14 weeks gestation of Z3A.14 [place] [id number] [place] [address] 68744- 0849 Dec, Screening for deficiency anemia Z13.0 [facility] [address] [facility] [id number] [place] [address] Dec, [facility] [address] [facility] [id number] [place], [place] [phone] Dec, Encounter for test, result unknown Z32.00 [facility] [place] [address] [place] [address] Jan, Hyperthyroidism E05.90 [facility] [address] [id number] [place] [address] Jan Graves disease E05.00 IMMUNIZATIONS No Known Immunizations SOCIAL HISTORY Never Assessed REASON FOR VISIT [facility] Hemoglobin PLAN OF CARE VITAL SIGNS MEDICATIONS Unknown Medications RESULTS Name Result Date Reference Range HEMOGLOBIN (IN HOUSE) 2018-01-07 HEMOGLOBIN 11.0 11.5 - 16 gm/dL Lot # [id number] Exp date 04/21/2019 PROCEDURES Procedure Date Ordered Result Body Site HEMOGLOBIN January 07, 2018 INSTRUCTIONS MEDICATIONS ADMINISTERED No Known Medications MEDICAL (GENERAL) HISTORY Type Description Date Medical History graves disease Medical History seizures Surgical History tonsillectomy as a child Hospitalization History [facility] Hospitalization History child
[2018-06-29 08:13] LABS: BASOPHILS # (AUTO) 0.1 10^3/uL (0.0-0.1); BASOPHILS % (AUTO) 1 % (0-10); EOSINOPHILS # (AUTO) 0.2 10^3/uL (0.0-0.3); EOSINOPHILS % (AUTO) 1 % (0-10); HEMATOCRIT 28 % (35-52); HEMOGLOBIN 9.2 G/DL (11.5-16.0); LYMPHOCYTES # (AUTO) 2.5 X 10^3 (1.0-4.0); LYMPHOCYTES % (AUTO) 23 % (12-44); MEAN CORPUSCULAR HEMOGLOBIN 23 PG (25-34); MEAN CORPUSCULAR HGB CONC 32 G/DL (32-36); MEAN CORPUSCULAR VOLUME 71 FL (80-99); MEAN PLATELET VOLUME 9.8 FL (7.4-10.4); MONOCYTES # (AUTO) 1.1 X 10^3 (0.0-1.0); MONOCYTES % (AUTO) 10 % (0-12); NEUTROPHILS # (AUTO) 7.2 X 10^3 (1.8-7.8); NEUTROPHILS % (AUTO) 65 % (42-75); PLATELET COUNT 223 10^3/uL (130-400); RED CELL DISTRIBUTION WIDTH 17.4 % (10.0-14.5)
[2018-06-29] MEDS ORDERED: SUFENTA 0.6MCG/ML BUPIVA 0.125 100 ML ONE (08:21)
--- NOTE | 2018-06-29 08:27 | History & Physical-OB ---
OB - Chief Complaint & HPI Date/Time Date of Admission: Date of Admission: Jun 29, 2018 at 07:07 Date seen by a Provider: Jun 29, 2018 Time Seen by a Provider: 08:15 Chief Complaint/History OB-Reason for Admission/Chief: Induction of Labor Hx : 4 Hx Para: 3 Expected Date of Delivery: Jul 06, 2018 Gestational Age in Weeks: 39 Gestational Age in Days: 0 Indication for induction: medical complication (hyperthyroidism with decreased abdominal circumference by US last week) Admission Nurse Assessment Rev: Yes History of Labs O+, antibody neg, RI. GC/chlamydia neg. HIV/hepB/RPR NR. Glucola neg. Penta low risk. GBS neg. Other History of hyperthyroidism, seen by MFM, initial TSH and free T4 at goals for without treatment per MFM, followed every 4-6 weeks and remained at goal, growth US every 4 weeks normal until last week when AC was decreased below 10%. History of seizure disorder not on medications with no seizure for over a year prior to . Allergies and Home Medications Allergies Coded Allergies: cefpodoxime (Verified Allergy, Intermediate, HIVES, 06/28/18) Home Medications Cyclobenzaprine HCl 10 Mg Tablet, 10 MG PO TID PRN for MUSCLE SPASMS, (Reported) Ferrous Sulfate 325 Mg Tablet, 325 MG PO DAILY, (Reported) Vit No.124/Iron/FA 1 Each Tablet, 1 EACH PO DAILY, (Reported) Patient Home Medication List Home Medication List Reviewed: Yes OB - History Hx of Present Care: Yes Ultrasounds: Normal mid trimester US Medical Complications: Other (Hyperthyroidism, seizure disorder controlled with no complications) Information Induced Hypertension: No Maternal Gestational Diabetes: No Hemorrhage: No Obstetrical History Hx : 4 Hx Para: 3 Hx # Term Pregnancies: 3 Hx # Pregnancies: 0 Number of Living Children: 3 Hx Termination: No Hx Multiple Gestation: No Hx Ectopic : No Hx Stillbirth: No Hx Complication: No Hx Induced Hypertens: No Hx Maternal Gestational Diabet: No Hx Hemorrhage: No Delivery History Hx Dystocia: No Hx Forceps Assisted Delivery: No Hx Vacuum Extraction Assisted: No Hx Placenta Abnormality: No Hx Distress: No Hx Large For Gestational Age I: No Hx Small for Gestational Age I: No Hx Section: No Hx Vaginal Delivery Post C-Sec: No Hx Blood Disorders: No Adverse Rxn to Tranfusion: No Patient Past Medical History PMHx: Hyperthyroidism Seizure disorder SurgHx: Tonsillectomy Social History/Family History HIV/AIDS: No Recent Infectious Disease Expo: No Sexually Transmitted Disease: No Alcohol Use: Denies Use Recreational Drug Use: No Smoking Cessation: Former smoker Immunizations Rubella: immune RPR/VDRL: Negative GBS Status: Negative HBsAG: Negative OB - Admission Exam Physical Exam HEENT: NCAT Abdomen: Gravid Extremities: Normal Cervical Dilatation: 5cm Effacement: Other (40) Station: -2 Membranes: Intact Heart Rate: 140's Accelerations: Accelerations Present Decelerations: No Decelerations Short Term Variability: Present Usp Variability: Average (6-25) Contractions on Admission: None Monk Scoring Tool (Modified) Dilation (cm): >5cm (3) Effacement (%): 31-51% (1) Descent/Station: -2 (1) Cervix Consistency: Soft (2) Cervix Position: Posterior (0) Add 1 point for: Each previous vaginal delivery (1) (3) Monk Score: 10 Labs Laboratory Tests Test 06/29/18 07:50 Range/Units White Blood Count 11.0 4.3-11.0 10^3/uL Red Blood Count 4.00 L 4.35-5.85 10^6/uL Hemoglobin 9.2 L 11.5-16.0 G/DL Hematocrit 28 L 35-52 % Mean Corpuscular Volume 71 L 80-99 FL Mean Corpuscular Hemoglobin 23 L 25-34 PG Mean Corpuscular Hemoglobin Concent 32 32-36 G/DL Red Cell Distribution Width 17.4 H 10.0-14.5 % Platelet Count 223 130-400 10^3/uL Mean Platelet Volume 9.8 7.4-10.4 FL Neutrophils (%) (Auto) 65 42-75 % Lymphocytes (%) (Auto) 23 12-44 % Monocytes (%) (Auto) 10 0-12 % Eosinophils (%) (Auto) 1 0-10 % Basophils (%) (Auto) 1 0-10 % Neutrophils # (Auto) 7.2 1.8-7.8 X 10^3 Lymphocytes # (Auto) 2.5 1.0-4.0 X 10^3 Monocytes # (Auto) 1.1 H 0.0-1.0 X 10^3 Eosinophils # (Auto) 0.2 0.0-0.3 10^3/uL Basophils # (Auto) 0.1 0.0-0.1 10^3/uL OB - Assessment/Plan/Diagnosis Assessment Assessment: induction of labor, other (hyperthyroidism, seizure disorder, possible developing IUGR) Admission Dx 32 yo at 39w0d here for IOL for decreasing rate of abdominal circumference growth with history of hyperthyroidism complicating , TSH/T4 at goal per MFM recommendations throughout . Admission Status: Inpatient Order (span 2 midnights) Reason for Inpatient Admission: Induction, labor and delivery and course Plan Plan: Induction Induction Method: SHAHIDA GAR MD Jun 29, 2018 08:27
[2018-06-29] MEDS ORDERED: FERR325T18 PO (08:28)
[2018-06-29] MEDS ORDERED: PREN-142 PO (08:28)
[2018-06-29] MEDS ORDERED: CYCL10TA9 PO (08:28)
[2018-06-29 09:20] LABS: FREE T4 (FREE THYROXINE) 0.83 NG/DL (0.70-1.48)
[2018-06-29] MEDS ORDERED: LACTATED RINGERS 1,000 ML IV SCH (09:38)
[2018-06-29] MEDS ORDERED: EPIDURAL (SUFENTA 0.6MCG/ML BUPIVA 0.125%) 100 ML BAG EPI SCH (09:45)
[2018-06-29] MEDS ORDERED: NALOXONE 0.4 MG/ML 1 ML (NARCAN) VIAL IV PRN ×2 (09:45)
[2018-06-29] MEDS ORDERED: diphenhydrAMINE 50 MG/ML INJ (BENADRYL) IV PRN (09:45)
[2018-06-29] MEDS ORDERED: ONDANSETRON 4 MG/2 ML (SDV) Z0FRAN IV PRN (09:45)
[2018-06-29] MEDS ORDERED: METOCLOPRAMIDE INJ 10 MG/2 ML (REGLAN) IV PRN (09:45)
[2018-06-29] MEDS ORDERED: CATHETER FLUSH 10 ML SYR IV SCH ×2 (14:00→22:00)
--- NOTE | 2018-06-29 14:50 | OB Labor & Delivery Record ---
Vag Delivery Note Vag Delivery Note Date of Delivery: 06/29/18 Preoperative Diagnosis: Addis Fitzgerald is a 32 /Para 4 / 3,Gestational Age (wks)39with 0d Postoperative Diagnosis: Same Surgeon: SHAHIDA SAVAGE Anesthesia: Epidural Delivery Type: Vacuum assisted vaginal delivery Findings: Viable male , apgars 8/9, weight 6#15 Lacerations: none Intact placenta with 3 vessel cord. Nuchal cord x 1, body cord x 1, No shoulder dystocia Estimated Blood Loss: 250 ml Complications: None Condition: Stable Description of Procedure: The patient is a G4 now P4 who presented for IOL for decreasing growth at 39 weeks with history of hyperthyroidism. She was admitted and informed consent was obtained. Her labor course was remarkable for deep variable decelerations with contractions starting at near complete dilation. She progressed to complete dilatation and began to push. She was then set up for delivery. In spite of adequate pushing effort, the infant's head did not descend significantly from 0 station and continued to have deep variable decelerations with pushing with longer periods of recovery between each contraction, so decision was made to proceed with vacuum assisted delivery. At 1419, Mity-vac applied to head, cup swept to ensure no maternal tissue entrapment and small amount of pressure applied, repeat sweep confirmed no maternal entrapment. With the next contraction, pressure increased to green zone and infant was delivered within 3 pulls during maternal effort. The infant's head was delivered atraumatically in the JUJU position. Tight nuchal cord noted and unable to be reduced, spontaneously rotated to BIJU and the shoulders and remainder of the infant's body were then delivered through the cord without difficulty. Upon delivery, the cord was doubly clamped and cut and the infant was handed off to the pediatric staff. An intact placenta with 3-vessel cord delivered via Chanda and there was found to be minimal bleeding.~ Vigorous fundal massage was performed and the fundus was found to be firm. IV oxytocin was given. Examination of the vagina and perineum revealed no lacerations. Following the delivery, sponge, instrument and needle counts were correct. Mom and baby were both in stable condition in the labor suite. Vitals - Labs Vital Signs - I&O Vital Signs Date Time Temp Pulse Resp B/P (MAP) Pulse Ox O2 Delivery O2 Flow Rate FiO2 06/29/18 11:45 93 18 122/75 (91) 100 Room Air 06/29/18 11:40 97.7 97 18 123/79 (94) 100 Room Air 06/29/18 11:30 94 18 120/77 (91) 100 Room Air 06/29/18 11:15 93 18 132/89 (103) 100 Room Air 06/29/18 11:00 108 18 122/81 (95) 100 Room Air 06/29/18 10:45 102 18 121/82 (95) 100 Room Air 06/29/18 10:30 109 18 111/70 (84) 100 Room Air 06/29/18 10:25 102 18 115/76 (89) 100 Room Air 06/29/18 10:20 122 18 100/78 (85) 100 Room Air 06/29/18 10:15 110 18 119/74 (89) 100 Room Air 06/29/18 10:10 114 18 114/77 (89) 100 Room Air 06/29/18 10:05 112 18 109/74 (86) 100 Room Air 06/29/18 10:01 97.4 118 18 110/76 (87) 100 Room Air 06/29/18 09:56 116 18 109/77 (88) 100 Room Air 06/29/18 09:53 117 18 113/73 (86) 100 Room Air 06/29/18 09:50 108 18 118/77 (91) 100 Room Air 06/29/18 09:47 110 18 120/76 (91) 100 Room Air 06/29/18 09:43 111 18 116/74 (88) 100 Room Air 06/29/18 09:40 104 18 118/74 (89) 100 Room Air 06/29/18 09:37 100 18 120/76 (91) 100 Room Air 06/29/18 09:34 103 18 116/75 (89) 100 Room Air 06/29/18 09:31 108 18 121/79 (93) 100 Room Air 06/29/18 09:28 104 18 122/78 (93) 100 Room Air 06/29/18 09:25 100 18 124/79 (94) 100 Room Air 06/29/18 09:00 101 18 117/77 (90) 99 Room Air 06/29/18 08:30 107 18 115/76 (89) 99 Room Air 06/29/18 08:00 115 18 111/77 (88) 98 Room Air 06/29/18 07:20 98.4 122 18 123/86 (98) 100 Room Air Labs Laboratory Tests 06/29/18 07:50: White Blood Count 11.0, Red Blood Count 4.00L, Hemoglobin 9.2L, Hematocrit 28L, Mean Corpuscular Volume 71L, Mean Corpuscular Hemoglobin 23L, Mean Corpuscular Hemoglobin Concent 32, Red Cell Distribution Width 17.4H, Platelet Count 223, Mean Platelet Volume 9.8, Neutrophils (%) (Auto) 65, Lymphocytes (%) (Auto) 23, Monocytes (%) (Auto) 10, Eosinophils (%) (Auto) 1, Basophils (%) (Auto) 1, Neutrophils # (Auto) 7.2, Lymphocytes # (Auto) 2.5, Monocytes # (Auto) 1.1H, Eosinophils # (Auto) 0.2, Basophils # (Auto) 0.1, Thyroid Stimulating Hormone ( TSH) 0.89, Free Thyroxine 0.83 SHAHIDA SAVAGE MD Jun 29, 2018 14:50
[2018-06-29] MEDS ORDERED: BENZOCAINE/MENTHOL (DERMOPLAST) 56 ML CAN TP PRN (15:00)
[2018-06-29] MEDS ORDERED: WITCH HAZEL(TUCKS) 40 EA JAR TOP PRN (15:00)
[2018-06-29] MEDS: IBUPROFEN 600 MG (MOTRIN) TAB PO SCH ×2 (15:16→20:55)
[2018-06-30] MEDS ORDERED: ACETAMINOPHEN 500 MG TAB (TYLENOL) ONE (01:41)
[2018-06-30] MEDS: ACETAMINOPHEN 500 MG TAB (TYLENOL) PO PRN ×2 (01:46→12:38)
[2018-06-30] MEDS: IBUPROFEN 600 MG (MOTRIN) TAB PO SCH ×3 (02:38→15:24)
[2018-06-30 05:41] LABS: BASOPHILS % (AUTO) 0 % (0-10); EOSINOPHILS # (AUTO) 0.2 10^3/uL (0.0-0.3); EOSINOPHILS % (AUTO) 2 % (0-10); HEMATOCRIT 26 % (35-52); HEMOGLOBIN 8.5 G/DL (11.5-16.0); LYMPHOCYTES % (AUTO) 22 % (12-44); MEAN CORPUSCULAR HEMOGLOBIN 23 PG (25-34); MEAN CORPUSCULAR HGB CONC 32 G/DL (32-36); MEAN CORPUSCULAR VOLUME 71 FL (80-99); MEAN PLATELET VOLUME 9.4 FL (7.4-10.4); MONOCYTES # (AUTO) 1.1 X 10^3 (0.0-1.0); MONOCYTES % (AUTO) 8 % (0-12); NEUTROPHILS # (AUTO) 9.5 X 10^3 (1.8-7.8); NEUTROPHILS % (AUTO) 69 % (42-75); PLATELET COUNT 208 10^3/uL (130-400); RED BLOOD COUNT 3.72 10^6/uL (4.35-5.85); RED CELL DISTRIBUTION WIDTH 17.9 % (10.0-14.5); WHITE BLOOD COUNT 13.8 10^3/uL (4.3-11.0)
[2018-06-30 06:17] VITALS: BP 122/81
[2018-06-30] MEDS ORDERED: IBUP-844 PO (08:02)
--- NOTE | 2018-06-30 08:03 | Discharge Summary ---
Diagnosis/Chief Complaint Date of Admission Jun 29, 2018 at 07:07 Date of Discharge Jun 30, 2018 Admission Diagnosis Admission Diagnosis 32 yo at 39w0d here for IOL for decreasing rate of abdominal circumference growth with history of hyperthyroidism complicating , TSH/T4 at goal per MFM recommendations throughout . Discharge Diagnosis - 32 yo at 39w0d here for IOL for decreasing rate of abdominal circumference growth with history of hyperthyroidism complicating , TSH /T4 at goal per MFM recommendations throughout . - s/p Discharge Summary-OBS Procedures None. Discharge Physical Examination Allergies: Coded Allergies: cefpodoxime (Verified Allergy, Intermediate, HIVES, 06/28/18) Vitals & I&Os Intake and Output 06/30/18 00:00 Intake Total 2150 ml Output Total 1200 ml Balance 950 ml Vital Sign - Last 12Hours Date Time Temp Pulse Resp B/P (MAP) Pulse Ox O2 Delivery O2 Flow Rate FiO2 06/30/18 06:17 98.9 98 18 122/81 (95) 99 Room Air 06/29/18 14:15 15.00 General Appearance: Alert, Oriented X3, Cooperative Psych/Mental Status: Mood NL Hospital Course Routine care. Labs Laboratory Tests 06/30/18 05:25: White Blood Count 13.8H, Red Blood Count 3.72L, Hemoglobin 8.5L, Hematocrit 26L , Mean Corpuscular Volume 71L, Mean Corpuscular Hemoglobin 23L, Mean Corpuscular Hemoglobin Concent 32, Red Cell Distribution Width 17.9H, Platelet Count 208, Mean Platelet Volume 9.4, Neutrophils (%) (Auto) 69, Lymphocytes (%) (Auto) 22, Monocytes (%) (Auto) 8, Eosinophils (%) (Auto) 2, Basophils (%) (Auto ) 0, Neutrophils # (Auto) 9.5H, Lymphocytes # (Auto) 3.0, Monocytes # (Auto) 1.1H, Eosinophils # (Auto) 0.2, Basophils # (Auto) 0.0 Discharge Instructions to patient/family Please see electronic discharge instructions given to patient. Discharge Inst-[facility] Depart Medications New, Converted or Re-Newed RX: Other (may take over the counter) New Medications: Ibuprofen (Ibu) 600 Mg Tablet 600 MG PO Q6H, #90 TAB 0 Refills Continued Medications: Ferrous Sulfate (Ferrous Sulfate) 325 Mg Tablet 325 MG PO DAILY, TAB Vit No.124/Iron/FA ( Vitamin Tablet) 1 Each Tablet 1 EACH PO DAILY, TAB Discontinued Medications: Cyclobenzaprine HCl (Cyclobenzaprine HCl) 10 Mg Tablet 10 MG PO TID PRN for MUSCLE SPASMS, TAB Follow Up/Instructions Goal/Follow Up: Follow-up with Dr. Salazar in 6 wks Activity Activity: Activity as Tolerated Nothing Inside Vagina: No Douching, No [place], No Tampons Diet Discharge Diet: No Restrictions Symptoms to Report to DrJoni: Bleeding Excessive, Pain Increased, Fever Over 101 Degrees F, Vaginal Bleeding Increase, Vaginal Discharge Foul, Shortness of Breath For Any Problems or Questions: Contact Your Physician Discharge Medications Reviewed and agree with Discharge Medication list on patient's Discharge Instruction sheet Clinical Quality Measures DVT/VTE Risk/Contraindication: Risk Factor Score Per Nursin RFS Level Per Nursing on Admit: 2=Moderate Copy Copies To 1: SHAHIDA SALAZAR MD, LINDA K DO Jun 30, 2018 08:03
[2018-06-30 08:30] VITALS: BP 123/83
[2018-06-30] MEDS ORDERED: FLU QUADRIvalent (5+ YOA) 2018-2019 (AFLURIA) 0.5 ML IM ONE (09:45)
--- NOTE | 2018-06-30 10:46 | Anesthesia-Regional Post-Op ---
Regional Patient Condition Mental Status: Alert, Oriented x3 Circulation: Same as Pre-Op Headache: Absent Sensation: Full Recovery Motor Block: Absent Post Op Complications Complications None Follow Up Care/Instructions Patient Instructions None needed. Anesthesia/Patient Condition Patient is doing well, no complaints, stable vital signs, no apparent adverse anesthesia problems. No complications reported per nursing. ANNA MACK CRNA Jun 30, 2018 10:46
[2018-06-30 12:30] VITALS: BP 112/76
[2018-06-30 16:25] VITALS: BP 112/76
== END 2018-06-30 16:25 | disposition home or self-care (01) | DRG 807 ==
LOC: LDRP 07:07
PROVIDERS: ADMIT Family Medicine; ATTEND Family Medicine
PROC: 10D07Z6 Extraction of Products of Conception, Vacuum, Via Natural or Artificial Opening (ICD-10-PCS; principal; 2018-06-29)
PROC: 3E033VJ Introduction of Other Hormone into Peripheral Vein, Percutaneous Approach (ICD-10-PCS; 2018-06-29)
DX: O36.5930 Maternal care for other known or suspected poor fetal growth, third trimester, not applicable or unspecified (principal); O99.284 Endocrine, nutritional and metabolic diseases complicating childbirth; E05.90 Thyrotoxicosis, unspecified without thyrotoxic crisis or storm; O76 Abnormality in fetal heart rate and rhythm complicating labor and delivery; O69.1XX0 Labor and delivery complicated by cord around neck, with compression, not applicable or unspecified; O69.82X0 Labor and delivery complicated by other cord entanglement, without compression, not applicable or unspecified; Z87.891 Personal history of nicotine dependence; Z86.69 Personal history of other diseases of the nervous system and sense organs; Z37.0 Single live birth; Z3A.39 39 weeks gestation of pregnancy
CPT/HCPCS: 36415; 84439; 84443; 85025; 86850; 86900; 86901

== ENCOUNTER 2020-04-10 23:45 | Emergency (ER) | payer SELFPAY ==
[~2020-04-10] VITALS: Ht 157.5 cm; Wt 48.1 kg
[~2020-04-10 23:45] MED LIST: CYCL10TA9 PO; FERR325T18 PO; IBUP-844 PO; PREN-142 PO
[2020-04-10 23:54] VITALS: BP 148/99
[2020-04-11 00:09] LABS: BILIRUBIN,URINE NEGATIVE (NEGATIVE); CLARITY,URINE SL CLOUDY; COLOR,URINE YELLOW; GLUCOSE, URINE (UA) NEGATIVE (NEGATIVE); KETONES,URINE NEGATIVE (NEGATIVE); LEUKOCYTE ESTERASE ,URINE NEGATIVE (NEGATIVE); NITRITE,URINE NEGATIVE (NEGATIVE); PROTEIN,URINE NEGATIVE (NEGATIVE)
--- NOTE | 2020-04-11 00:17 | ED GI ---
General Chief Complaint: Abdominal/GI Problems Stated Complaint: SHARP PAINS IN LOWER RT SIDE,NAUSEA Nursing Triage Note: PT AMB TO [facility] 6 WITH COMPLAINT OF RLQ ABD PAIN. STATES HAS HAD PAINT INTERMITTENTLY FOR THE LAST YEAR SINCE BEING . Sepsis Screen: No Definite Risk Source of Information: Patient Exam Limitations: No Limitations History of Present Illness Date Seen by Provider: Apr 11, 2020 Time Seen by Provider: 00:08 Initial Comments Patient presents ER by private conveyance with chief complaint of colicky, intermittent pain feels like gas in her abdomen along with distention for the past 2 years. She has talked to Adriana Gomez her primary care provider as well as her OB provider from 2 years ago and they recommended simethicone. She says that does help. Passing bowel movements helps the pain as well. She has no personal family history of any significant medical history. She's had her tubes tied but no other surgeries. She had a bowel movement just before coming here. She has not taken any Tylenol or Motrin for her pain. She's not having any fevers, chills, nausea, vomiting, early satiety or worsening symptoms after eating. No personal history of IBS/IBD. She says her bowel movement tonight was mostly soft. Allergies and Home Medications Allergies Coded Allergies: cefpodoxime (Verified Allergy, Intermediate, HIVES, 06/28/18) Home Medications Ferrous Sulfate 325 Mg Tablet, 325 MG PO DAILY, (Reported) Ibuprofen 600 Mg Tablet, 600 MG PO Q6H Prescribed by: CHERIE MENA on 06/30/18 0802 Vit No.124/Iron/FA 1 Each Tablet, 1 EACH PO DAILY, (Reported) Patient Home Medication List Home Medication List Reviewed: Yes Review of Systems Review of Systems Constitutional: No chills, No diaphoresis, No fever EENTM: No Blurred Vision, No Double Vision Respiratory: Denies Cough, Denies Shortness of Air Cardiovascular: Denies Chest Pain, Denies Edema Gastrointestinal: See HPI, Abdominal Pain, Constipated; Denies Diarrhea, Denies Nausea, Denies Poor Fluid Intake, Denies Vomiting Genitourinary: Denies Burning, Denies Discharge Musculoskeletal: No back pain, No joint pain Past Sctixvi-Nqgege-Boeznm Hx Patient Social History Alcohol Use: Denies Use Recreational Drug Use: Yes Drug of Choice: marijuana Smoking Status: Current Everyday Smoker Type Used: Cigarettes Recent Foreign Travel: No Contact w/Someone Who Travel: No Recent Infectious Disease Expo: No Recent Hopitalizations: No Immunizations Up To Date PED Vaccines UTD: Yes Seasonal Allergies Seasonal Allergies: Yes Past Medical History Surgeries: Yes Respiratory: No Cardiac: No Neurological: Yes (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)) Female Reproductive Disorders: Denies Sexually Transmitted Disease: No HIV/AIDS: No Genitourinary: No Gastrointestinal: Yes (WITH ) Gastroesophageal Reflux Musculoskeletal: No Endocrine: Yes (GRAVES DISEASE) HEENT: No Loss of Vision: Denies Hearing Impairment: Denies Cancer: No Psychosocial: No Integumentary: No Blood Disorders: Yes (ANEMIA) Adverse Reaction/Blood Tranf: No Family Medical History Arthritis MATERNAL GRANDMOTHER Diabetes mellitus 19 MOTHER MATERNAL GRANDFATHER (IDDM) Headache disorder 19 MOTHER Hypertension 19 MOTHER MATERNAL GRANDMOTHER MATERNAL GRANDFATHER Kidney disease MATERNAL GRANDMOTHER (DIALYSIS) Thyroid disease 19 MOTHER (HYPOTHYROID) MATERNAL GRANDFATHER (HYPOTHYROID) Physical Exam Vital Signs Vital Signs - First Documented 04/10/20 23:54 Temp 36.6 Pulse 103 Resp 20 B/P (MAP) 148/99 (115) Pulse Ox 100 O2 Delivery Room Air Capillary Refill : Less Than 3 Seconds Height/Weight/BMI Height: 5'1.00" Weight: 146lbs. 0.0oz. 66.501828pi; 19.00 BMI Method: General Appearance: WD/WN, no apparent distress HEENT: PERRL/EOMI, pharynx normal Neck: full range of motion, supple, normal inspection Respiratory: lungs clear, normal breath sounds, no respiratory distress, no accessory muscle use Cardiovascular: normal peripheral pulses, regular rate, rhythm Gastrointestinal: normal bowel sounds, soft, tenderness (Mild, all 4 quadrants. Especially suprapubic) Extremities: normal range of motion, non-tender, normal capillary refill Progress/Results/Core Measures Results/Orders Lab Results Laboratory Tests Test 04/10/20 00:00 Range/Units Urine Color YELLOW Urine Clarity SL CLOUDY Urine pH 7.0 5-9 Urine Specific [place] 1.010 L 1.016-1.022 Urine Protein NEGATIVE NEGATIVE Urine Glucose (UA) NEGATIVE NEGATIVE Urine Ketones NEGATIVE NEGATIVE Urine Nitrite NEGATIVE NEGATIVE Urine Bilirubin NEGATIVE NEGATIVE Urine Urobilinogen 0.2 < = 1.0 MG/DL Urine Leukocyte Esterase NEGATIVE NEGATIVE Urine RBC (Auto) NEGATIVE NEGATIVE Urine RBC NONE /HPF Urine WBC NONE /HPF Urine Squamous Epithelial Cells 2-5 /HPF Urine Crystals NONE /LPF Urine Bacteria TRACE /HPF Urine Casts NONE /LPF Urine Mucus NEGATIVE /LPF Urine Culture Indicated NO My Orders Orders - ROSA MARIA FROST Ua Culture If Indicated (04/10/20 23:47) Urine Bedside (04/10/20 23:47) Vital Signs/I&O 04/10/20 23:54 Temp 36.6 Pulse 103 Resp 20 B/P (MAP) 148/99 (115) Pulse Ox 100 O2 Delivery Room Air Blood Pressure Mean: 115 Progress Progress Note : Time: 00:19 Progress Note By history and examination it would appear she has irritable bowel or possibly inflammatory bowel. She has aseptic vital signs. Heart rate in the 80s when this examiner was in the room. She does have some anxiety which may explain why her heart rate was 100 early on. We will get a urinalysis and bedside and if these are negative then we discussed with her and a conservative management course. We'll have her clean out with MiraLAX and use Colace to stay regular for the next week or 2. If this works for her symptoms as well as simethicone, Tylenol and ibuprofen then she can follow-up with her primary care provider. If she continues to have symptoms she can follow-up with Dr. Lozano and discuss endoscopy. We have given her return precautions. Departure Impression Primary Impression: Obstipation Disposition: 01 HOME, SELF-CARE Condition: Stable Departure-Patient Inst. Decision time for Depature: 00:22 Referrals: [facility]/ (PCP) Primary Care Physician ADRIANA GOMEZ (Family) Primary Care Physician CLINTON LOZANO DO Patient Instructions: Gas and Bloating, Constipation, Adult (DC) Add. Discharge Instructions: Use simethicone/Gas-X as necessary for distention and gas pain. Tylenol 1000 mg every 8 hours as necessary for pain. Ibuprofen 800 mg every 8 hours as necessary for pain. Next line heating pads as necessary for pain. superintendent circus a bottle of MiraLAX and take one capful mixing it in 6-8 ounces of fluids of your choice 3 times a day until you have passed all of the stool out of your colon. After that use Colace 1-2 times a day to stay regular. If your symptoms are significantly improved then follow-up with your primary care provider. If your symptoms persist then call Dr. Lozano and request follow-up and discuss endoscopy. Return to the ER if you developed intractable pain, intractable nausea or fever above 100.3F. All discharge instructions reviewed with patient and/or family. Voiced understanding. Copy Copies To 1: CLINTON LOZANO TITUS J Apr 11, 2020 00:17
[2020-04-11 00:18] LABS: BACTERIA,URINE TRACE /HPF
== END 2020-04-11 00:33 | disposition home or self-care (01) ==
LOC: EDUNIT# 23:45 → ER 23:49
DX: K59.00 Constipation, unspecified (principal); D64.9 Anemia, unspecified; F17.210 Nicotine dependence, cigarettes, uncomplicated; Z88.1 Allergy status to other antibiotic agents; Z82.49 Family history of ischemic heart disease and other diseases of the circulatory system
CPT/HCPCS: 81000; 84703; 99282

== ENCOUNTER 2021-06-12 19:14 | Inpatient (IN) | payer OTHER ==
[~2021-06-12] VITALS: Ht 152.4 cm; Wt 46.1 kg
[~2021-06-12 19:14] MED LIST changes: +CYCL10TA25 PO; -CYCL10TA9 PO
[2021-06-12] MEDS ORDERED: NALOXONE 0.4 MG/ML 1 ML (NARCAN) VIAL ONE (19:19)
[2021-06-12] MEDS ORDERED: PROPOFOL DRIP (ICU) 100 ML IV ONE (19:23)
[2021-06-12 19:43] LABS: BASOPHILS # (AUTO) 0.1 10^3/uL (0.0-0.1); BASOPHILS % (AUTO) 1 % (0-10); EOSINOPHILS # (AUTO) 0.2 10^3/uL (0.0-0.3); EOSINOPHILS % (AUTO) 3 % (0-10); HEMATOCRIT 37 % (35-52); LYMPHOCYTES # (AUTO) 2.3 10^3/uL (1.0-4.0); LYMPHOCYTES % (AUTO) 27 % (12-44); MEAN CORPUSCULAR HEMOGLOBIN 27 pg (25-34); MEAN CORPUSCULAR HGB CONC 32 g/dL (32-36); MEAN CORPUSCULAR VOLUME 82 fL (80-99); MEAN PLATELET VOLUME 9.9 fL (9.0-12.2); MONOCYTES # (AUTO) 0.8 10^3/uL (0.0-1.0); MONOCYTES % (AUTO) 10 % (0-12); NEUTROPHILS # (AUTO) 5.1 10^3/uL (1.8-7.8); NEUTROPHILS % (AUTO) 60 % (42-75); PLATELET COUNT 238 10^3/uL (130-400); WHITE BLOOD COUNT 8.5 10^3/uL (4.3-11.0)
[2021-06-12 19:44] LABS: BILIRUBIN,URINE NEGATIVE (NEGATIVE); CLARITY,URINE CLEAR; COLOR,URINE YELLOW; GLUCOSE, URINE (UA) NEGATIVE (NEGATIVE); KETONES,URINE NEGATIVE (NEGATIVE); LEUKOCYTE ESTERASE ,URINE NEGATIVE (NEGATIVE); NITRITE,URINE NEGATIVE (NEGATIVE); PROTEIN,URINE TRACE (NEGATIVE)
[2021-06-12] MEDS ORDERED: LACTATED RINGERS 1,000 ML IV ONE (19:44)
[2021-06-12] MEDS: LACTATED RINGERS 1,000 ML IV SCH ×2 (19:47→22:47)
[2021-06-12 19:52] LABS: BACTERIA,URINE TRACE /HPF; RBC,URINE RARE /HPF; SQUAMOUS EPITHELIAL CELL,UR 0-2 /HPF
[2021-06-12 19:53] LABS: ABG BASE EXCESS -2.5 MMOL/L (-2.5-2.5); ABG OXYGEN SATURATION 100 % (94-100); ABG PCO2 32 MMHG (35-45); ABG PH 7.44 (7.37-7.43); ABG PO2 307 MMHG (79-93); ABG TCO2 22.2 MMOL/L (21.0-31.0); INSPIRED O2 100%; PATIENT TEMP 36.1; VENTILATOR YES
[2021-06-12 19:58] LABS: AMPHETAMINE SCREEN, URINE NEGATIVE (NEGATIVE); BARBITURATE SCREEN URINE NEGATIVE (NEGATIVE); BENZODIAZEPINES SCREEN URINE POSITIVE (NEGATIVE); CANNABINOID SCREEN, URINE POSITIVE (NEGATIVE); COCAINE SCREEN URINE POSITIVE (NEGATIVE); METHADONE STAT NEGATIVE (NEGATIVE); METHAMPHETAMINE SCREEN URINE S NEGATIVE (NEGATIVE); OPIATE SCREEN URINE NEGATIVE (NEGATIVE); TRICYCLIC ANTIDEPRESSANTS SCRE NEGATIVE (NEGATIVE)
[2021-06-12 19:59] LABS: OXYCODONE STAT NEGATIVE (NEGATIVE); PROPOXYPHENE STAT NEGATIVE (NEGATIVE)
--- NOTE | 2021-06-12 19:59 | ED General ---
General Stated Complaint: OVERDOSE Source of Information: EMS, Family Exam Limitations: No Limitations (GABRIEL JAMIL APRN) History of Present Illness Date Seen by Provider: Jun 12, 2021 Time Seen by Provider: 19:30 Initial Comments To ER with reports of an overdose. She was found by family at about 630 and noted to be unresponsive with a bottle of olanzapine 5 mg tablets next to her that was empty. EMS arrived and transported her to the hospital and noted her to be maintaining an airway with oxygen saturation of 100% but still unresponsive. Mother reports that the patient has been very depressed lately and tonight at 6:09 PM sent her a text message stating that "I hope I have life insurance, see you on the other side" and advised her mother to take care of her ([place]) kid. She had been on Xanax and Seroquel which the mother flushed down the toilet yesterday out of fear that patient would overdose. She reports patient does have a history of Graves' disease and is unsure what medication she is on if any. Timing/Duration: 1-3 Hours (GABRIEL JAMIL APRN) Allergies and Home Medications Allergies Coded Allergies: cefpodoxime (Verified Allergy, Intermediate, HIVES, 06/28/18) Patient Home Medication List Home Medication List Reviewed: Yes (GABRIEL JAMIL APRN) Ferrous Sulfate (Ferrous Sulfate) 325 Mg Tablet, 325 MG PO DAILY, (Reported) Entered as Reported by: SHAHIDA SAVAGE on 06/29/18827 Ibuprofen (Ibu) 600 Mg Tablet, 600 MG PO Q6H Prescribed by: CHERIE MENA on 06/30/18 0802 Vit No.124/Iron/FA ( Vitamin Tablet) 1 Each Tablet, 1 EACH PO DAILY, (Reported) Entered as Reported by: SHAHIDA SAVAGE on 06/29/18 08 Review of Systems Review of Systems Constitutional: see HPI, other (unable to obtain) (GABRIEL JAMIL APRN) Past Umwubgv-Qligxe-Sgfqki Hx Immunizations Up To Date PED Vaccines UTD: Yes (GABRIEL JAMIL APRN) Seasonal Allergies Seasonal Allergies: Yes (GABRIEL JAMIL APRN) Past Medical History Surgeries: Yes Respiratory: No Cardiac: No Neurological: Yes (HX OF SEIZURE X4-5(GRANDMAL BETWEEN [id number])) Female Reproductive Disorders: Denies Sexually Transmitted Disease: No HIV/AIDS: No Genitourinary: No Gastrointestinal: Yes (WITH ) Gastroesophageal Reflux Musculoskeletal: No Endocrine: Yes (GRAVES DISEASE) HEENT: No Loss of Vision: Denies Hearing Impairment: Denies Cancer: No Psychosocial: No Integumentary: No Blood Disorders: Yes (ANEMIA) Adverse Reaction/Blood Tranf: No (GABRIEL JAMIL APRN) Family Medical History Arthritis MATERNAL GRANDMOTHER Diabetes mellitus 19 MOTHER MATERNAL GRANDFATHER (IDDM) Headache disorder 19 MOTHER Hypertension 19 MOTHER MATERNAL GRANDMOTHER MATERNAL GRANDFATHER Kidney disease MATERNAL GRANDMOTHER (DIALYSIS) Thyroid disease 19 MOTHER (HYPOTHYROID) MATERNAL GRANDFATHER (HYPOTHYROID) Physical Exam Vital Signs Vital Signs - First Documented 06/12/21 06/12/21 19:15 20:27 Temp 36.1 Pulse 92 Resp 12 B/P (MAP) 151/98 (115) Pulse Ox 100 O2 Delivery Room Air FiO2 40 (BELINDA COLLINS MD) Vital Signs Capillary Refill : (GABRIEL JAMIL APRN) Height, Weight, BMI Height: 5'1.00" Weight: 146lbs. 0.0oz. 66.216383rc; 19.00 BMI Method: General Appearance: Thin, Other (Petite framed. Unresponsive on arrival. Heart rate in the 70s to 80s. Blood pressure 130 over 70s. She has a GCS of 6. 1 point for EYE, 1 point for verbal and 4 points for motor response. She is noted to have a disconjugate gaze with right eye up and out and left eyes straight ahead. She does move all extremities very slowly and draws both arms inward. She is hypoventilating with respiratory rate of about 6-10 and pinpoint pupils. We gave 0.4 mg of IV Narcan without any response and decided to proceed with intubation for airway protection. We used 20 mg of etomidate and 50 mg of rocuronium and intubated with glide scope size 7.5 endotracheal tube 23 cm at the teeth. The disconjugate gaze did resolve after administration of paralytic.) HEENT: Pharynx Normal, Other (pinpoint pupils) Neck: Full Range of Motion, Normal Inspection Respiratory: No Accessory Muscle Use, No Respiratory Distress Cardiovascular: Regular Rate, Rhythm, Normal Peripheral Pulses Gastrointestinal: Normal Bowel Sounds, Non Tender, Soft Extremity: Normal Capillary Refill, Normal Inspection, Other (Small 6 x 8 cm bruise over the right anterolateral thigh) Neurologic/Psychiatric: Other (GCS of 6) Skin: Normal Color, Warm/Dry (GABRIEL JAMIL APRN) Procedures/Interventions IV : Location: Right Site: Antecubital IV Catheter Type: Peripheral IV IV Catheter Gauge: 20 (GABRIEL JAMIL APRN) Date of ETT Placement: Jun 12, 2021 Time of ETT Placement: 19:00 Intubation Method: orotracheal Tube Size: 7.5 Medications: Etomidate, Rocuronium Positive End Tide CO2: Yes Breath Sounds after Intubation: bilateral-equal Intubation Complications: no complications Post Intubation Xray: Yes (GABRIEL JAMIL APRN) Progress/Results/Core Measures Suspected Sepsis SIRS Temperature: Pulse: Respiratory Rate: Laboratory Tests 06/12/21 19:26: White Blood Count 8.5 Blood Pressure / Mean: Laboratory Tests 06/12/21 19:26: Creatinine 0.76, Platelet Count 238, Total Bilirubin 1.2H (GABRIEL JAMIL APRN) Results/Orders Lab Results Laboratory Tests Test 06/12/21 19:26 06/12/21 19:42 Range/Units White Blood Count 8.5 4.3-11.0 10^3/uL Red Blood Count 4.53 3.80-5.11 10^6/uL Hemoglobin 12.0 11.5-16.0 g/dL Hematocrit 37 35-52 % Mean Corpuscular Volume 82 80-99 fL Mean Corpuscular Hemoglobin 27 25-34 pg Mean Corpuscular Hemoglobin Concent 32 32-36 g/dL Red Cell Distribution Width 16.4 H 10.0-14.5 % Platelet Count 238 130-400 10^3/uL Mean Platelet Volume 9.9 9.0-12.2 fL Immature Granulocyte % (Auto) 0 % Neutrophils (%) (Auto) 60 42-75 % Lymphocytes (%) (Auto) 27 12-44 % Monocytes (%) (Auto) 10 0-12 % Eosinophils (%) (Auto) 3 0-10 % Basophils (%) (Auto) 1 0-10 % Neutrophils # (Auto) 5.1 1.8-7.8 10^3/uL Lymphocytes # (Auto) 2.3 1.0-4.0 10^3/uL Monocytes # (Auto) 0.8 0.0-1.0 10^3/uL Eosinophils # (Auto) 0.2 0.0-0.3 10^3/uL Basophils # (Auto) 0.1 0.0-0.1 10^3/uL Immature Granulocyte # (Auto) 0.0 0.0-0.1 10^3/uL Urine Color YELLOW Urine Clarity CLEAR Urine pH 6.0 5-9 Urine Specific [place] >=1.030 1.016-1.022 Urine Protein TRACE H NEGATIVE Urine Glucose (UA) NEGATIVE NEGATIVE Urine Ketones NEGATIVE NEGATIVE Urine Nitrite NEGATIVE NEGATIVE Urine Bilirubin NEGATIVE NEGATIVE Urine Urobilinogen 0.2 < = 1.0 MG/DL Urine Leukocyte Esterase NEGATIVE NEGATIVE Urine RBC (Auto) NEGATIVE NEGATIVE Urine RBC RARE /HPF Urine WBC 2-5 /HPF Urine Squamous Epithelial Cells 0-2 /HPF Urine Crystals NONE /LPF Urine Bacteria TRACE /HPF Urine Casts NONE /LPF Urine Mucus LARGE H /LPF Urine Culture Indicated NO Sodium Level 140 135-145 MMOL/L Potassium Level 3.6 3.6-5.0 MMOL/L Chloride Level 107 98-107 MMOL/L Carbon Dioxide Level 20 L 21-32 MMOL/L Anion Gap 13 5-14 MMOL/L Blood Urea Nitrogen 10 7-18 MG/DL Creatinine 0.76 0.60-1.30 MG/DL Estimat Glomerular Filtration Rate 106 BUN/Creatinine Ratio 13 Glucose Level 98 70-105 MG/DL Calcium Level 9.4 8.5-10.1 MG/DL Corrected Calcium 9.1 8.5-10.1 MG/DL Total Bilirubin 1.2 H 0.1-1.0 MG/DL Aspartate Amino Transf (AST/SGOT) 17 5-34 U/L Alanine Aminotransferase (ALT/SGPT) 32 0-55 U/L Alkaline Phosphatase 48 40-136 U/L Total Protein 7.6 6.4-8.2 GM/DL Albumin 4.4 3.2-4.5 GM/DL TSH [place] Testing 3.52 0.35-4.94 UIU/ML Serum Test, Qualitative NEGATIVE NEGATIVE Salicylates Level < 5.0 L 5.0-20.0 MG/DL Urine Opiates Screen NEGATIVE NEGATIVE Urine Oxycodone Screen NEGATIVE NEGATIVE Urine Methadone Screen NEGATIVE NEGATIVE Urine Propoxyphene Screen NEGATIVE NEGATIVE Acetaminophen Level < 10 L 10-30 UG/ML Urine Barbiturates Screen NEGATIVE NEGATIVE Ur Tricyclic Antidepressants Screen NEGATIVE NEGATIVE Urine Phencyclidine Screen NEGATIVE NEGATIVE Urine Amphetamines Screen NEGATIVE NEGATIVE Urine Methamphetamines Screen NEGATIVE NEGATIVE Urine Benzodiazepines Screen POSITIVE H NEGATIVE Urine Cocaine Screen POSITIVE H NEGATIVE Urine Cannabinoids Screen POSITIVE H NEGATIVE Serum Alcohol < 10 <10 MG/DL Blood Gas Puncture Site R RADIAL Blood Gas Patient Temperature 36.1 Arterial Blood pH 7.44 H 7.37-7.43 Arterial Blood Partial Pressure CO2 32 L 35-45 MMHG Arterial Blood Partial Pressure O2 307 H 79-93 MMHG Arterial Blood HCO3 21 L 23-27 MMOL/L Arterial Blood Total CO2 22.2 21.0-31.0 MMOL/L Arterial Blood Oxygen Saturation 100 94-100 % Arterial Blood Base Excess -2.5 -2.5-2.5 MMOL/L Fam Test NA Blood Gas Ventilator Setting YES Blood Gas Inspired Oxygen 100% (BELINDA COLLINS MD) My Orders Orders - BELINDA COLLINS MD Naloxone Injection (Narcan Injection) (06/12/21 19:19) Propofol Drip (Icu) (Diprivan Drip (Icu) (06/12/21 19:23) Acetaminophen (06/12/21 19:38) Alcohol (06/12/21 19:38) Cbc With Automated Diff (06/12/21 19:38) Comprehensive Metabolic Panel (06/12/21 19:38) Drug Screen Stat (Urine) (06/12/21 19:38) Hcg,Qualitative Serum (06/12/21 19:38) Salicylate (06/12/21 19:38) Thyroid Analyzer (06/12/21 19:38) Ua Culture If Indicated (06/12/21 19:38) Chest 1 View, Ap/Pa Only (06/12/21 19:38) Lactated Ringers (Lr 1000 Ml Iv Solution (06/12/21 19:44) (BELINDA COLLINS MD) Medications Given in ED Current Medications Medications Dose Ordered Sig/Lis Route Start Time Stop Time Status Last Admin Dose Admin Iohexol 75 ml ONCE ONCE IV 06/12/21 20:30 06/12/21 20:31 DC 06/12/21 20:28 75 ML Sodium Chloride 100 ml ONCE ONCE IV 06/12/21 20:30 06/12/21 20:31 DC 06/12/21 20:28 80 ML (BELINDA COLLINS MD) Vital Signs/I&O 06/12/21 06/12/21 19:15 20:27 Temp 36.1 Pulse 92 92 Resp 12 18 B/P (MAP) 151/98 (115) Pulse Ox 100 100 O2 Delivery Room Air FiO2 40 (BELINDA COLLINS MD) Vital Signs/I&O Capillary Refill : (GABRIEL JAMIL APRN) Departure Communication (Admissions) NAME: SHAHANA AU MED REC#: [id number] PT STATUS: REG ER : 1985 PHYSICIAN: GABRIEL JAMIL APRN ADMIT DATE: 06/12/21/ER Draft Date of Exam:06/12/21 CT ANGIO HEAD/NECK PROCEDURE: CT angiography of the head and CT angiography of the neck with and without contrast. TECHNIQUE: Contiguous noncontrast images were obtained from the skull base through the vertex. After intravenous contrast administration, helical CT angiography of the neck was performed. Source data was reformatted into 3D MIP projections. Delayed post contrast acquisition was also obtained. Auto Exposure Controls were utilized during the CT exam to meet ALARA standards for radiation dose reduction. INDICATION: Patient is unresponsive with a disconjugate gaze FINDINGS: The ventricles are normal in size, shape and position. There are no masses or hemorrhages. There are no extra-axial fluid collections. Postcontrast images do not show any abnormal areas of enhancement. The brachiocephalic origins are widely patent. Both vertebral arteries are widely patent. The common, internal and external carotid arteries are all widely patent. Intracranially, the anterior, middle and posterior cerebral arteries are all widely patent. Basilar artery and branches are widely patent. There is no aneurysm or arteriovenous malformation. There is no intracranial hemorrhage. There is no large vessel occlusion seen. Basilar artery and branches appear to be widely patent. IMPRESSION: Unremarkable CTA of the head and neck. Dictated on workstation # [id number] Dict: 06/12/212034 Trans: 06/12/212046 [id number] Interpreted by: KAIT GARZA MD Electronically signed by: 2019-spoke with poison control. 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 Norepinephrine would be the pressor of choice if that happens. Seizures are possible and should be treated with benzos. Otherwise no recommendations. 2026-back from CT. Hypertensive likely an effect of the cocaine 183/114 heart rate of 64. 2038-discussed with Dr. Kaur. Will admit and consult the ICU. I spoke with Dr. Sanon from the ICU. Currently 158/99 heart rate 69 sinus no ectopy. (GABRIEL JAMIL APRN) Impression Primary Impression: Polysubstance overdose Disposition: ADMITTED INPATIENT Condition: Stable Admissions Decision to Admit Reason: Admit from ER (General) Decision to Admit/Date: Jun 12, 2021 Time/Decision to Admit Time: 20:40 (GABRIEL JAMIL APRN) Departure-Patient Inst. Referrals: [facility] [place]) Primary Care Physician ADRIANA FLORES (Family) Primary Care Physician ATTENDING PHYSICIAN NOTE: I was physically present as attending physician in the emergency department during the care of this patient. The case was briefly reviewed with me, but I was not directly involved in the decision making or delivery of care for this patient. I did order some basic labs and chest x-ray on behalf of Gabriel Jamil NP. (BELINDA COLLINS MD) GABRIEL JAMIL APRN Jun 12, 2021 19:59 BELINDA COLLINS MD Jun 12, 2021 21:55
[2021-06-12] MEDS ORDERED: PROPOFOL DRIP (ICU) 100 ML IV SCH (20:00)
--- NOTE | 2021-06-12 20:02 | Diagnostic Imaging Report ---
INDICATION: Drug overdose EXAM: Portable chest at 7:57 PM FINDINGS: There is an ET tube projecting over the trachea. There is an NG tube in the stomach. The lungs are clear. There are no effusions or pneumothoraces. IMPRESSION: No acute abnormalities in the chest. There is gaseous distention of the stomach. Dictated by: Dictated on workstation # [id number]
[2021-06-12 20:13] LABS: ACETAMINOPHEN < 10 UG/ML (10-30); ALANINE AMINOTRANSFERASE 32 U/L (0-55); ALBUMIN 4.4 GM/DL (3.2-4.5); ALKALINE PHOSPHATASE 48 U/L (40-136); BILIRUBIN,TOTAL 1.2 MG/DL (0.1-1.0); BUN/CREATININE RATIO 13; CALCIUM 9.4 MG/DL (8.5-10.1); CARBON DIOXIDE 20 MMOL/L (21-32); CHLORIDE 107 MMOL/L (98-107); CREATININE SERUM 0.76 MG/DL (0.60-1.30); GFR ESTIMATED 106; GLUCOSE 98 MG/DL (70-105); POTASSIUM 3.6 MMOL/L (3.6-5.0); SALICYLATE < 5.0 MG/DL (5.0-20.0); SODIUM 140 MMOL/L (135-145); TOTAL PROTEIN 7.6 GM/DL (6.4-8.2); TSH (THYROID ANALYZER) 3.52 UIU/ML (0.35-4.94)
[2021-06-12] MEDS ORDERED: HOLD METFORMIN - RECEIVED CONTRAST 20 ML VIAL IV SCH (20:30)
[2021-06-12] MEDS ORDERED: IOHEXOL 350 MG/ML 100 ML (OMNIPAQUE 350) VIAL IV ONE (20:30)
[2021-06-12] MEDS ORDERED: NS 100 ML (IVPB) BAG IV ONE (20:30)
--- NOTE | 2021-06-12 20:48 | Diagnostic Imaging Report ---
PROCEDURE: CT angiography of the head and CT angiography of the neck with and without contrast. TECHNIQUE: Contiguous noncontrast images were obtained from the skull base through the vertex. After intravenous contrast administration, helical CT angiography of the neck was performed. Source data was reformatted into 3D MIP projections. Delayed post contrast acquisition was also obtained. Auto Exposure Controls were utilized during the CT exam to meet ALARA standards for radiation dose reduction. INDICATION: Patient is unresponsive with a disconjugate gaze FINDINGS: The ventricles are normal in size, shape and position. There are no masses or hemorrhages. There are no extra-axial fluid collections. Postcontrast images do not show any abnormal areas of enhancement. The brachiocephalic origins are widely patent. Both vertebral arteries are widely patent. The common, internal and external carotid arteries are all widely patent. Intracranially, the anterior, middle and posterior cerebral arteries are all widely patent. Basilar artery and branches are widely patent. There is no aneurysm or arteriovenous malformation. There is no intracranial hemorrhage. There is no large vessel occlusion seen. Basilar artery and branches appear to be widely patent. IMPRESSION: Unremarkable CTA of the head and neck. Dictated by: Dictated on workstation # [id number]
[2021-06-12] MEDS ORDERED: NALOXONE 0.4 MG/ML 1 ML (NARCAN) VIAL IV ONE (21:30)
[2021-06-13 02:19] VITALS: BP 115/94
[2021-06-13 04:44] LABS: BASOPHILS # (AUTO) 0.1 10^3/uL (0.0-0.1); BASOPHILS % (AUTO) 1 % (0-10); EOSINOPHILS # (AUTO) 0.3 10^3/uL (0.0-0.3); EOSINOPHILS % (AUTO) 4 % (0-10); HEMATOCRIT 36 % (35-52); HEMOGLOBIN 11.6 g/dL (11.5-16.0); LYMPHOCYTES # (AUTO) 2.4 10^3/uL (1.0-4.0); LYMPHOCYTES % (AUTO) 29 % (12-44); MEAN CORPUSCULAR HEMOGLOBIN 26 pg (25-34); MEAN CORPUSCULAR HGB CONC 33 g/dL (32-36); MEAN CORPUSCULAR VOLUME 81 fL (80-99); MONOCYTES # (AUTO) 0.8 10^3/uL (0.0-1.0); MONOCYTES % (AUTO) 10 % (0-12); NEUTROPHILS # (AUTO) 4.6 10^3/uL (1.8-7.8); NEUTROPHILS % (AUTO) 57 % (42-75); PLATELET COUNT 198 10^3/uL (130-400); WHITE BLOOD COUNT 8.1 10^3/uL (4.3-11.0)
[2021-06-13 04:51] LABS: ABG BASE EXCESS -2.2 MMOL/L (-2.5-2.5); ABG OXYGEN SATURATION 99 % (94-100); ABG PCO2 26 MMHG (35-45); ABG PH 7.51 (7.37-7.43); ABG PO2 103 MMHG (79-93); ABG TCO2 21.4 MMOL/L (21.0-31.0)
[2021-06-13 04:53] LABS: ALLENS TEST YES-POS
[2021-06-13 04:54] LABS: INSPIRED O2 21%; PATIENT TEMP 36.5; VENTILATOR YES
[2021-06-13 04:55] LABS: ALBUMIN 3.8 GM/DL (3.2-4.5)
[2021-06-13 04:56] LABS: POTASSIUM 3.1 MMOL/L (3.6-5.0)
[2021-06-13 04:57] LABS: CALCIUM 8.7 MG/DL (8.5-10.1)
[2021-06-13 04:58] LABS: TOTAL PROTEIN 6.3 GM/DL (6.4-8.2)
[2021-06-13 05:00] LABS: BILIRUBIN,TOTAL 1.8 MG/DL (0.1-1.0)
[2021-06-13 05:01] LABS: PHOSPHORUS 2.9 MG/DL (2.3-4.7)
[2021-06-13 05:02] LABS: CREATININE SERUM 0.76 MG/DL (0.60-1.30)
[2021-06-13 05:04] LABS: MAGNESIUM 1.7 MG/DL (1.6-2.4)
[2021-06-13] MEDS: POTASSIUM CL 10MEQ/50ML IVPB 50 ML IV SCH ×3 (06:15→07:44)
[2021-06-13] MEDS: MAGNESIUM 1 GM/100 ML IVPB 100 ML IV SCH ×3 (06:15→07:41)
[2021-06-13] MEDS: KCL 20 MEQ TAB (K-DUR) PO SCH (06:15)
[2021-06-13 06:38] VITALS: BP 113/80
[2021-06-13] MEDS: LACTATED RINGERS 1,000 ML IV SCH ×4 (06:40→23:12)
--- NOTE | 2021-06-13 07:57 | Physical Therapy Progress Note ---
Therapy Progress Note Order for PT evaluation received. Patient is currently intubated and sedated. Will monitor and start when appropriate. MARCI DONOHUE PT Jun 13, 2021 07:57
--- NOTE | 2021-06-13 08:10 | Tele-ICU Consult ---
History of Present Illness History of Present Illness Date Seen by Provider: Jun 13, 2021 Time Seen by Provider: 07:00 Date of Admission This virtual visit was conducted using real time audio/video. Thank you for asking us to see this patient for respiratory insufficiency due to polysubstance OD. Recent events: agitated on vent, but squeezes RN's hand. PMH: Seiz.Joe. SH: smoking history Y FH: Non-contributory. ROS: limited by patient's clinical condition. PE: VSS. O2 sat 96% on vent 21%/+5 HEENT: No obvious masses, adenopathy or JVD. Chest: clear to auscultation. CV: RRR S1 S2 No murmur or added sounds. Abd: Non-tender. Bowel sounds Y. : Unremarkable. Crow Y. BUSINESS INTELLIGENCE DIRECTOR/psychiatric: Grossly intact. No obvious focal findings. Extremities: No edema. Capillary refill < 3 seconds. Skin: unremarkable. Results: Decreased K 3.1. B.51/26/103. CXR: Clear. Available chart/ vitals / labs / images reviewed. Video assessment done using teleICU camera, rest of exam as per RN. A/P: Respiratory insufficiency: SBT this AM Monitor for increasing oxygenation needs and/or need for intubation. Critical Care: critically ill patient. Cont. PPPi., Joshua Discussed with SURESH Liu. Asked RN to reach out to eICU if any questions or concerns later. Time spent with patient/coordination of care with other health professionals (mins): 20 Allergies and Home Medications Allergies Coded Allergies: cefpodoxime (Verified Allergy, Intermediate, HIVES, 06/28/18) Home Medications Ferrous Sulfate 325 Mg Tablet, 325 MG PO DAILY, (Reported) Ibuprofen 600 Mg Tablet, 600 MG PO Q6H Prescribed by: CHERIE MENA on 06/30/18 0802 Vit No.124/Iron/FA 1 Each Tablet, 1 EACH PO DAILY, (Reported) Past Medical/Social/Family Hx Patient Social History Smoking Status: Unknown if Ever Smoked Smokeless Tobacco Frequency: Unknown if Ever Used Use of E-Cig and/or Vaping dev: Unable to obtain E-Cig and/or Vaping Freq: Unknown if Ever Used Substance use?: Unable to obtain Substance type: Opiates/Opioids, Marijuana Alcohol Use?: Unable to obtain Pt stated abuse/neglect: Unable to obtain Immunizations Up To Date Influenza Vaccine Up-to-Date: No; Not Current Tetanus Booster (TDap): Less Than 5 Years Hepatitis A: No Hepatitis B: No TB Skin Test: None Current Status status: Unable to obtain status: Unable to obtain Advance Directives: Unable to obtain Communicates: Unable To Communicate Primary Language: Mexican Preferred Spoken Language: Mexican Past Medical History PMHx: Hyperthyroidism Seizure disorder SurgHx: Tonsillectomy Review of Systems Constitutional: see HPI EENTM: see HPI Respiratory: see HPI Cardiovascular: see HPI Genitourinary: see HPI All Other Systems Reviewed Negative Unless Noted: Yes Sepsis Event Evaluation Height, Weight, BMI Height: 5'1.00" Weight: 146lbs. 0.0oz. 66.300680se; 18.85 BMI Method: Exam Exam Patient acknowledged, consented, and participated in this virtual visit which was conducted using real time audio/video Vital Signs Date Time Temp Pulse Resp B/P (MAP) Pulse Ox O2 Delivery O2 Flow Rate FiO2 06/13/21 07:48 36.5 06/13/21 06:38 87 16 100 21 06/13/21 06:00 71 15 112/77 100 Mechanical Ventilator 21.00 06/13/21 05:00 111 28 87 06/13/21 05:00 73 16 117/81 100 Mechanical Ventilator 21.00 06/13/21 04:34 81 153/98 06/13/21 04:00 100 Mechanical Ventilator 21 06/13/21 04:00 65 16 116/84 100 Mechanical Ventilator 21.00 06/13/21 04:00 36.8 06/13/21 03:00 75 16 118/83 100 Mechanical Ventilator 21.00 06/13/21 02:19 80 16 98 40 06/13/21 02:00 62 16 115/84 100 Mechanical Ventilator 21.00 06/13/21 01:00 67 16 124/84 100 Mechanical Ventilator 21.00 06/13/21 01:00 69 06/13/21 00:30 76 13 149/97 100 Mechanical Ventilator 21.00 06/13/21 00:00 36.4 06/13/21 00:00 100 Mechanical Ventilator 21 06/12/21 23:11 36.4 67 16 121/91 100 Mechanical Ventilator 21.00 06/12/21 23:00 68 16 121/91 100 Mechanical Ventilator 30.00 06/12/21 22:45 69 16 120/91 100 Mechanical Ventilator 30.00 06/12/21 22:37 70 131/92 06/12/21 22:30 68 16 131/92 100 Mechanical Ventilator 30.00 06/12/21 22:15 66 16 137/95 100 Mechanical Ventilator 30.00 06/12/21 22:14 68 06/12/21 22:04 Mechanical Ventilator 30 06/12/21 22:04 36.4 65 16 146/98 100 Mechanical Ventilator 30.00 06/12/21 21:55 36.1 67 18 138/93 100 Mechanical Ventilator 40.00 06/12/21 20:29 92 18 100 40 06/12/21 20:27 92 18 100 40 06/12/21 19:15 36.1 92 12 151/98 (115) 100 Room Air I & O 06/13/21 07:00 Intake Total 1100 ml Output Total 550 ml Balance 550 ml Height & Weight Height: 5'1.00" Weight: 146lbs. 0.0oz. 66.828279ag; 18.85 BMI Method: General Appearance: Anxious, Thin, Other (Petite framed. Unresponsive on arrival. Heart rate in the 70s to 80s. Blood pressure 130 over 70s. She has a GCS of 6. 1 point for EYE, 1 point for verbal and 4 points for motor response. She is noted to have a disconjugate gaze with right eye up and out and left eyes straight ahead. She does move all extremities very slowly and draws both arms inward. She is hypoventilating with respiratory rate of about 6-10 and pinpoint pupils. We gave 0.4 mg of IV Narcan without any response and decided to proceed with intubation for airway protection. We used 20 mg of etomidate and 50 mg of rocuronium and intubated with glide scope size 7.5 endotracheal tube 23 cm at the teeth. The disconjugate gaze did resolve after administration of paralytic.) HEENT: Pharynx Normal, Other (pinpoint pupils) Neck: Full Range of Motion, Normal Inspection Respiratory: No Accessory Muscle Use, No Respiratory Distress Cardiovascular: Regular Rate, Rhythm, Normal Peripheral Pulses Capillary Refill: Less Than 3 Seconds Peripheral Pulses: 1+ Dorsalis Pedis (R), 1+ Left Dors-Pedis (L) Extremity: Normal Capillary Refill, Normal Inspection, Other (Small 6 x 8 cm bruise over the right anterolateral thigh) Neurologic/Psychiatric: Other (GCS of 6) Skin: Normal Color, Warm/Dry Results Lab Laboratory Tests 06/12/21 19:26 06/13/21 04:15 Assessment/Plan Assessment/Plan See free text Critical Care: Ventilator Management KRISTI DE LA CRUZ MD Jun 13, 2021 08:10
[2021-06-13] MEDS: PANTOPRAZOLE 40 MG (PROTONIX) VIAL IV SCH (09:04)
[2021-06-13] MEDS: ENOXAPARIN 30 MG/0.3 ML (LOVENOX) SYR SC SCH (09:04)
[2021-06-13] MEDS ORDERED: SUCCINYLCHOLINE INJ 100 MG/5 ML SYR/VIAL INJ ONE (10:45)
[2021-06-13] MEDS ORDERED: ETOMIDATE IV SOLN 20 MG/10 ML VIAL IV ONE (10:45)
[2021-06-13] MEDS ORDERED: ROCURONIUM 10 MG/ML 5 ML SYRINGE IV ONE (10:45)
--- NOTE | 2021-06-13 12:39 | Short Stay Summary-Hospitalist ---
EVELINE BARRIENTOS MED STUDENT 06/13/21 1239: History of Present Illness HPI/Chief Complaint CC- Overdose Mrs. Au is a 35 yo female that presented yesterday evening for overdose. She had sent a text message to her mother saying goodbye and to watch her kids. When she was found she was noted to have an empty bottle of Olanzapine with her. In the ED she was also found to have a positive drug screen for Benzos, Cocaine, and Cannabis. Her mother noted she had been very depressed for some time. She was noted to have a dyscongugate gaze in the ED and was minimally responsive. She was intubated due to respiratory failure and was [facility] where she remained intubated and sedated. This morning when I examined her she was somewhat responsive to verbal commands and was able to squeeze my fingers. Nursing reported that she was still trying to reach for her tube and that maybe she wasnt sedated enough. She was extubated this morning and tolerated the procedure well. At this point she is stable enough to be discharged. Source: patient, other (Current Records) Exam Limitations: clinical condition (Intubated) Date Seen 06/13/21 Time Seen by a Provider: 08:30 Attending Physician Khalida Lizama DO [facility] Referring Physician Date of Admission Jun 12, 2021 at 20:41 Home Medications & Allergies Home Medications Reviewed patient Home Medication Reconciliation performed by pharmacy medication reconciliations weatherization field technician and/or nursing. Patients Allergies have been reviewed. Allergies Allergies Coded Allergies cefpodoxime (Verified Allergy, Intermediate, HIVES, 06/28/18) Past Medical/Social/Family Hx Patient Social History Smoking Status: Unknown if Ever Smoked Smokeless Tobacco Frequency: Unknown if Ever Used Use of E-Cig and/or Vaping dev: Unable to obtain E-Cig and/or Vaping Freq: Unknown if Ever Used Substance use?: Unable to obtain Substance type: Opiates/Opioids, Marijuana Alcohol Use?: Unable to obtain Pt stated abuse/neglect: Unable to obtain Immunizations Up To Date Influenza Vaccine Up-to-Date: No; Not Current Tetanus Booster (TDap): Less Than 5 Years Hepatitis A: No Hepatitis B: No TB Skin Test: None Current Status status: Unable to obtain status: Unable to obtain Advance Directives: Unable to obtain Communicates: Unable To Communicate Primary Language: Thai Preferred Spoken Language: Thai Past Medical History PMHx: Hyperthyroidism Seizure disorder SurgHx: Tonsillectomy Review of Systems ROS-Unable to Obtain: Pt is intubated and sedated Constitutional: no symptoms reported Physical Exam Physical Exam Vital Signs Vital Signs - First Documented 06/12/21 06/12/21 06/12/21 19:15 20:27 21:55 Temp 36.1 Pulse 92 Resp 12 B/P (MAP) 151/98 (115) Pulse Ox 100 O2 Delivery Room Air O2 Flow Rate 40.00 FiO2 40 Capillary Refill : Less Than 3 Seconds Height, Weight, BMI Height: 5'1.00" Weight: 146lbs. 0.0oz. 66.936801dn; 18.85 BMI Method: General Appearance: Mild Distress, Thin, Other (Pt is intubated and sedated in bed. She is responsive enough to verbal commands and is able to squeeze fingers. She is trying to grab at her ET tube.) HEENT: Moist Mucous Membranes, Other (ET tube in place, no copious secretions) Neck: Supple Respiratory: Chest Non Tender, Lungs Clear, Normal Breath Sounds, No Accessory Muscle Use, No Respiratory Distress Cardiovascular: Regular Rate, Rhythm, No Edema, No Murmur, Normal Peripheral Pulses Gastrointestinal: Normal Bowel Sounds, Non Tender, Soft Rectal: Deferred Extremity: Normal Capillary Refill, Normal Inspection, No Pedal Edema, Other (Small 6 x 8 cm bruise over the right anterolateral thigh) Neurologic/Psychiatric: Alert (Verbal commands); No Oriented x3; Other (Sedat ed) Skin: Normal Color, Warm/Dry Results Results/Procedures Labs Laboratory Tests 06/12/21 19:26 06/13/21 04:15 Patient resulted labs reviewed. Imaging NAME: SHAHANA AU [facility] REC#: [id number] PT STATUS: ADM IN : 1985 PHYSICIAN: BELINDA COLLINS MD ADMIT DATE: 06/12/21/ICU Signed Date of Exam:06/12/21 CHEST 1 VIEW, AP/PA ONLY INDICATION: Drug overdose EXAM: Portable chest at 7:57 PM FINDINGS: There is an ET tube projecting over the trachea. There is an NG tube in the stomach. The lungs are clear. There are no effusions or pneumothoraces. IMPRESSION: No acute abnormalities in the chest. There is gaseous distention of the stomach. Dictated by: Dictated on workstation # [id number] Dict: 06/12/211999 Trans: 06/12/212109 [facility] [id number] Interpreted by: KAIT GARZA MD Electronically signed by: KAIT GARZA MD 06/12/212109 ____ NAME: SHAHANA AU MED REC#: [id number] PT STATUS: ADM IN : 1985 PHYSICIAN: GABRIEL HIGGINS APRN ADMIT DATE: 06/12/21/ICU Signed Date of Exam:06/12/21 CT ANGIO HEAD/NECK PROCEDURE: CT angiography of the head and CT angiography of the neck with and without contrast. TECHNIQUE: Contiguous noncontrast images were obtained from the skull base through the vertex. After intravenous contrast administration, helical CT angiography of the neck was performed. Source data was reformatted into 3D MIP projections. Delayed post contrast acquisition was also obtained. Auto Exposure Controls were utilized during the CT exam to meet ALARA standards for radiation dose reduction. INDICATION: Patient is unresponsive with a disconjugate gaze FINDINGS: The ventricles are normal in size, shape and position. There are no masses or hemorrhages. There are no extra-axial fluid collections. Postcontrast images do not show any abnormal areas of enhancement. The brachiocephalic origins are widely patent. Both vertebral arteries are widely patent. The common, internal and external carotid arteries are all widely patent. Intracranially, the anterior, middle and posterior cerebral arteries are all widely patent. Basilar artery and branches are widely patent. There is no aneurysm or arteriovenous malformation. There is no intracranial hemorrhage. There is no large vessel occlusion seen. Basilar artery and branches appear to be widely patent. IMPRESSION: Unremarkable CTA of the head and neck. Dictated by: Dictated on workstation # [id number] Dict: 06/12/212034 Trans: 06/12/212109 [facility] [id number] Interpreted by: KAIT GARZA MD Electronically signed by: KAIT GARZA MD 06/12/212109 Short Stay Diagnosis Discharge Diagnosis-Short Stay Admission Diagnosis Overdose Final Discharge Diagnosis Olanzapine Overdose Conclusion Plan Overdose -Pt admitted to ICU on veltilator overnight -Extubated this morning and tolerated well -Will d/c today Depression -Pt should be set up with some counseling or social support to prevent further suicide attempt Hypokalemia -KCl supplementation Supervisory-Addendum Brief Verification & Attestation Participated in pt care: history, physical Personally performed: exam, history Care discussed with: Medical Student Procedures: n/a n/a KHALIDA LIZAMA DO 06/14/21 0522: History of Present Illness HPI/Chief Complaint CC: Overdose HPI: This is a 35yo female who presents following an overdose of Olanzapine, she is extubated and doing well, trying to wake her up in order to discharge. Source: patient Exam Limitations: clinical condition (Intubated) Past Medical/Social/Family Hx Patient Social History Marrital Status: single Employed/Student: unemployed Smoking Status: Unknown if Ever Smoked Past Medical History Depression Review of Systems ROS-Unable to Obtain: Intubated Constitutional: no symptoms reported Physical Exam Physical Exam General Appearance: No Apparent Distress, WD/WN, Chronically ill, Other (Sedated and intubated) Respiratory: Lungs Clear, Normal Breath Sounds Cardiovascular: Regular Rate, Rhythm Short Stay Diagnosis Discharge Diagnosis-Short Stay Admission Diagnosis Overdose Final Discharge Diagnosis Overdose Conclusion Plan Extubate Supervisory-Addendum Brief Verification & Attestation Participated in pt care: history, MDM, physical Personally performed: exam, history, MDM, supervision of care Care discussed with: Medical Student Procedures: n/a Results interpretation: Verified all documentation Verification and Attestation of Medical Student E/M Service A medical student performed and documented this service in my presence. I reviewed and verified all information documented by the medical student and made modifications to such information, when appropriate. I personally performed the physical exam and medical decision making. Khalida Lizama, Jun 14, 2021,05:22 EVLEINE BARRIENTOS MED STUDENT Jun 13, 2021 12:39 KHALIDA LIZAMA DO Jun 14, 2021 05:22
[2021-06-13] MEDS: ACETAMINOPHEN 325 MG TABLET PO PRN ×2 (17:37→23:12)
[2021-06-13] MEDS ORDERED: AZTREONAM INJECTION 2,000 MG in NS (IVPB) 100 ML IV ONE (20:00)
[2021-06-13] MEDS ORDERED: VANCOMYCIN INJECTION 1,000 MG in NS (IVPB) 250 ML IV SCH (20:00)
[2021-06-13] MEDS ORDERED: LACTATED RINGERS 1,000 ML IV SCH (20:00)
[2021-06-13] MEDS ORDERED: LACTATED RINGERS 1,000 ML IV ONE (22:15)
[2021-06-13] MEDS ORDERED: VANCOMYCIN INJECTION 1,000 MG in NS (IVPB) 250 ML IV ONE (23:00)
[2021-06-14 05:00] LABS: BASOPHILS % (AUTO) 1 % (0-10); EOSINOPHILS # (AUTO) 0.2 10^3/uL (0.0-0.3); EOSINOPHILS % (AUTO) 3 % (0-10); HEMATOCRIT 31 % (35-52); HEMOGLOBIN 9.9 g/dL (11.5-16.0); LYMPHOCYTES # (AUTO) 1.9 10^3/uL (1.0-4.0); LYMPHOCYTES % (AUTO) 27 % (12-44); MEAN CORPUSCULAR HEMOGLOBIN 26 pg (25-34); MEAN CORPUSCULAR HGB CONC 32 g/dL (32-36); MEAN CORPUSCULAR VOLUME 82 fL (80-99); MEAN PLATELET VOLUME 9.9 fL (9.0-12.2); MONOCYTES # (AUTO) 0.7 10^3/uL (0.0-1.0); MONOCYTES % (AUTO) 10 % (0-12); NEUTROPHILS # (AUTO) 4.2 10^3/uL (1.8-7.8); NEUTROPHILS % (AUTO) 60 % (42-75); PLATELET COUNT 160 10^3/uL (130-400); WHITE BLOOD COUNT 7.1 10^3/uL (4.3-11.0)
[2021-06-14 05:18] LABS: ALBUMIN 3.2 GM/DL (3.2-4.5); POTASSIUM 3.7 MMOL/L (3.6-5.0)
[2021-06-14 05:19] LABS: CALCIUM 8.1 MG/DL (8.5-10.1)
[2021-06-14 05:21] LABS: TOTAL PROTEIN 5.3 GM/DL (6.4-8.2)
[2021-06-14 05:22] LABS: BILIRUBIN,TOTAL 1.1 MG/DL (0.1-1.0)
[2021-06-14 05:24] LABS: CREATININE SERUM 0.66 MG/DL (0.60-1.30); PHOSPHORUS 3.8 MG/DL (2.3-4.7)
[2021-06-14 05:27] LABS: MAGNESIUM 1.7 MG/DL (1.6-2.4)
[2021-06-14] MEDS: POTASSIUM CL 10MEQ/50ML IVPB 50 ML IV SCH (05:33)
[2021-06-14] MEDS: KCL 20 MEQ TAB (K-DUR) PO SCH (05:33)
[2021-06-14] MEDS: MAGNESIUM 1 GM/100 ML IVPB 100 ML IV SCH ×3 (05:34→07:45)
[2021-06-14 05:43] LABS: NEUTROPHILS % (MANUAL) 52 %
[2021-06-14 05:44] LABS: ATYPICAL LYMPHOCYTES 3 %; BASOPHILS % (MANUAL) 1 %; BLAST CELLS 1 %; EOSINOPHILS % (MANUAL) 5 %; LYMPHOCYTES % (MANUAL) 34 %; MONOCYTES % (MANUAL) 4 %; RBC MORPH NORMAL
[2021-06-14] MEDS ORDERED: FLU QUADRIvalent (3YOA+) 60 mcg/0.5 ml 2021-22(AFLURIA) IM ONE (06:45)
--- NOTE | 2021-06-14 06:51 | Occ Therapy Progress Note ---
Therapy Progress Note Orders received 06/13/2021, chart was reviewed on this date. Pt is continues to be intubated. OT will continue to monitor pt status and initiate treatment when pt is medically stable and able to actively participate in skilled therapy. KATHI CARR Jun 14, 2021 06:51
--- NOTE | 2021-06-14 07:33 | Diagnostic Imaging Report ---
EXAMINATION: Chest 1 view HISTORY: Sepsis COMPARISON: 06/12/2021 FINDINGS: The lungs are clear without edema or pneumonia. No pleural effusion or pneumothorax. Heart size is normal. IMPRESSION: 1. Clear lungs. Dictated by: Dictated on workstation # [id number]
[2021-06-14] MEDS: PANTOPRAZOLE 40 MG (PROTONIX) VIAL IV SCH (07:42)
[2021-06-14] MEDS: ENOXAPARIN 30 MG/0.3 ML (LOVENOX) SYR SC SCH (07:42)
[2021-06-14] MEDS ORDERED: VANCOMYCIN 750 MG/NS 250 ML IVPB IV SCH ×2 (09:00)
--- NOTE | 2021-06-14 10:07 | Discharge Summary ---
Discharge Summary Hospital Course Was the Problem List Reviewed?: Yes Problems/Dx: (1) Polysubstance overdose Status: Acute Hospital Course Date of Admission: Jun 12, 2021 at 20:41 Admission Diagnosis : Family Physician/Provider: Prieto Gomez Date of Discharge: 06/14/21 Discharge Diagnosis: Overdose, respiratory failure Hospital Course: Hospital Course: Short hospital course after overdosing on Olanzapine required intubation, then extubated had a fever and delay of DC by one day. She was deemed stable for DC with appointment with mental health. Labs and Pending Lab Test: Laboratory Tests 06/13/21 20:05: Lactic Acid Level 2.29*H 06/13/21 22:00: Lactic Acid Level 0.67 06/14/21 04:37: White Blood Count 7.1, Red Blood Count 3.76L, Hemoglobin 9.9L, Hematocrit 31L, Mean Corpuscular Volume 82, Mean Corpuscular Hemoglobin 26, Mean Corpuscular Hemoglobin Concent 32, Red Cell Distribution Width 16.9H, Platelet Count 160, Mean Platelet Volume 9.9, Immature Granulocyte % (Auto) 0, Neutrophils (%) (Auto) 60, Lymphocytes (%) (Auto) 27, Monocytes (%) (Auto) 10, Eosinophils (%) (Auto) 3, Basophils (%) (Auto) 1, Neutrophils # (Auto) 4.2, Lymphocytes # (Auto) 1.9, Monocytes # (Auto) 0.7, Eosinophils # (Auto) 0.2, Basophils # (Auto) 0.0, Immature Granulocyte # (Auto) 0.0, Neutrophils % (Manual) 52, Lymphocytes % (Manual) 34, Monocytes % (Manual) 4, Eosinophils % (Manual) 5, Basophils % (Manual) 1, Atypical Lymphocytes 3, Blast Cells 1, Blood Morphology Comment NORMAL, Sodium Level 139, Potassium Level 3.7, Chloride Level 111H, Carbon Dioxide Level 19L, Anion Gap 9, Blood Urea Nitrogen 5L, Creatinine 0.66, Estimat Glomerular Filtration Rate 125, BUN/Creatinine Ratio 8, Glucose Level 87, Calcium Level 8.1L, Corrected Calcium 8.7, Phosphorus Level 3.8, Magnesium Level 1.7, Total Bilirubin 1.1H, Aspartate Amino Transf (AST/SGOT) 14, Alanine Aminotransferase (ALT/SGPT) 20, Alkaline Phosphatase 37L, Total Protein 5.3L, Albumin 3.2 Microbiology 06/12/21 MRSA Screen - Final, Complete MRSA not isolated Home Meds Active Ibu (Ibuprofen) 600 Mg Tablet 600 Mg PO Q6H Reported Ferrous Sulfate 325 Mg Tablet 325 Mg PO DAILY Vitamin Tablet ( Vit No.124/Iron/FA) 1 Each Tablet 1 Each PO DAILY Assessment/Pt Instructions PCP in 1 week Discharge Planning: <30 minutes discharge planning Discharge Physical Examination Vital Signs Vital Signs Date Time Temp Pulse Resp B/P (MAP) Pulse Ox O2 Delivery O2 Flow Rate FiO2 06/14/21 08:00 37.2 06/14/21 07:00 88 06/14/21 06:00 17 127/87 98 Room Air 06/13/21 08:45 21.00 06/13/21 07:47 21 Allergies: Coded Allergies: cefpodoxime (Verified Allergy, Intermediate, HIVES, 06/28/18) Discharge Summary Date of Admission Jun 12, 2021 at 20:41 Date of Discharge Discharge Date: Jun 13, 2021 Admission Diagnosis Overdose Discharge Diagnosis Extubate YA LIZAMA DO Jun 14, 2021 10:07
[2021-06-14] MEDS ORDERED: IBUP-2473 PO (10:18)
[2021-06-14] MEDS ORDERED: OLN5T PO (10:18)
--- NOTE | 2021-06-14 11:35 | Physical Therapy Progress Note ---
Therapy Progress Note Patient reports she is independent and does not want or need PT. RN confirms. No skilled PT indicated. YASH AGUAYO PT Jun 14, 2021 11:35
[2021-06-14] MEDS: ACETAMINOPHEN 325 MG TABLET PO PRN (12:02)
--- NOTE | 2021-06-14 12:51 | Progress Note ---
EVELINE BARRIENTOS MED STUDENT 06/14/21 1251: Progress Note Mrs Fitzgerald is a 35yo female that presented to the ED on 06/12 due to a suicide attempt with olanzapine overdose. She has a history of depression and was taking Xanax and sequel as well. She sent her mother a text message that was concerning and when her mother checked on her she was found with the empty pill bottle. She was taken to ED and had to be intubated. She was admitted to the ICU overnight and was extubated the next day. She remained in the ICU until the following day until she was discharged. She did not have any negative events during her stay in the hospital and she had no concerns at her discharge. She was also given vancomycin during her stay. Her hospital stay lasted from 06/12 to 06/14 Supervisory-Addendum Brief Verification & Attestation Participated in pt care: history, physical Personally performed: exam, history Care discussed with: Medical Student Procedures: n/a n/a KHALIDA LIZAMA DO 06/15/21 0508: Supervisory-Addendum Brief Verification & Attestation Participated in pt care: history, MDM, physical Personally performed: exam, history, MDM, supervision of care Care discussed with: Medical Student Procedures: n/a Results interpretation: Verified all documentation Verification and Attestation of Medical Student E/M Service A medical student performed and documented this service in my presence. I reviewed and verified all information documented by the medical student and made modifications to such information, when appropriate. I personally performed the physical exam and medical decision making. Khalida Lizama, Jun 15, 2021,05:08 EVELINE BARRIENTOS MED STUDENT Jun 14, 2021 12:51 KHALIDA LIZAMA DO Jun 15, 2021 05:08
[2021-06-14 16:00] VITALS: BP 130/85
== END 2021-06-14 16:00 | disposition home or self-care (01) | DRG 917 ==
LOC: EDUNIT# 19:14 → ER 19:16 → ICU 20:41 → CSD 06-14 12:08
PROVIDERS: ADMIT Internal Medicine; ATTEND Internal Medicine
PROC: 5A1935Z Respiratory Ventilation, Less than 24 Consecutive Hours (ICD-10-PCS; principal; 2021-06-13)
PROC: 0BH17EZ Insertion of Endotracheal Airway into Trachea, Via Natural or Artificial Opening (ICD-10-PCS; 2021-06-13)
DX: T43.592A Poisoning by other antipsychotics and neuroleptics, intentional self-harm, initial encounter (principal); J96.90 Respiratory failure, unspecified, unspecified whether with hypoxia or hypercapnia; K21.9 Gastro-esophageal reflux disease without esophagitis; E05.00 Thyrotoxicosis with diffuse goiter without thyrotoxic crisis or storm; E05.90 Thyrotoxicosis, unspecified without thyrotoxic crisis or storm; G40.909 Epilepsy, unspecified, not intractable, without status epilepticus; F32.A Depression, unspecified; E87.6 Hypokalemia; Z79.899 Other long term (current) drug therapy
CPT/HCPCS: 31500; 36415; 70496; 70498; 71045; 80053; 80306; 80320; 80329; 81000; 82550; 82805; 83605; 83735; 84100; 84443; 84703; 85007; 85025; 85027; 87040; 87081; 93005; 94002; 94003; 94799; 99291; 99292

== ENCOUNTER 2023-04-18 15:48 | Emergency (ER) | payer OTHER ==
[~2023-04-18] VITALS: Ht 167 cm; Wt 50.0 kg
[~2023-04-18 15:48] MED LIST changes: +IBUP-2473 PO; +OLN5T PO
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
--- NOTE | 2023-04-18 16:39 | Diagnostic Imaging Report ---
INDICATION: Left-sided subclavicular chest pain. EXAM: Portable chest at 4:19 PM FINDINGS: Heart and mediastinum are normal. Lungs are clear. There are no effusions or pneumothoraces. IMPRESSION: Negative chest. Dictated by: Dictated on workstation # [id number]
[2023-04-18] MEDS ORDERED: HYDROcodone/ACETAMINOPHEN 5 MG/325 MG TABLET PO ONE (17:00)
[2023-04-18 17:15] VITALS: BP 114/93
== END 2023-04-18 17:18 | disposition home or self-care (01) ==
LOC: EDUNIT# 15:48 → ER 15:50
DX: M54.2 Cervicalgia (principal); V89.2XXA Person injured in unspecified motor-vehicle accident, traffic, initial encounter; Y92.410 Unspecified street and highway as the place of occurrence of the external cause
CPT/HCPCS: 71045; 72125